=== PATIENT | female | born 1955 | race Caucasian/White ===

== ENCOUNTER → 2016-07-11 | Outpatient (CLI) | payer BC ==
[~2016-07-11] MED LIST: AMLO5TAB2 PO; BACL10TA PO; CALMOSEPTINE OINTMENT 3.5 G PACKET TOP ONE; DEXT1DRO7 BOTH EYES; DULO30CA2 PO; DULO60CA46 PO; IPRA3AMP AEROSOL; LEVE500T9 PO; LEVO50TA11 PO; OXYC10TA57 PO; OXYC20TA44 PO; PANT40TA27 PO; POLY17PO6 PO; PRED10TA PO; RIVA15TA PO; SALINE FLUSH 10ml SYRINGE IVF ONE
== END ==
LOC: NWCC 13:42
PROVIDERS: ATTEND Internal Medicine
DX: L97.512 Non-pressure chronic ulcer of other part of right foot with fat layer exposed (principal); S90.821A Blister (nonthermal), right foot, initial encounter; R60.0 Localized edema; I87.2 Venous insufficiency (chronic) (peripheral)
CPT/HCPCS: 11042; 99213; A6209

== ENCOUNTER → 2016-07-19 | Outpatient (CLI) | payer BC ==
[~2016-07-19] MED LIST changes: -CALMOSEPTINE OINTMENT 3.5 G PACKET TOP ONE; -SALINE FLUSH 10ml SYRINGE IVF ONE
== END ==
LOC: NWCC 13:37
PROVIDERS: ATTEND Internal Medicine
DX: L97.512 Non-pressure chronic ulcer of other part of right foot with fat layer exposed (principal); S90.821A Blister (nonthermal), right foot, initial encounter; I87.2 Venous insufficiency (chronic) (peripheral); R60.0 Localized edema; G62.9 Polyneuropathy, unspecified
CPT/HCPCS: 11042; 99213; A6021; A6210

== ENCOUNTER → 2016-08-02 | Outpatient (CLI) | payer BC ==
[~2016-08-02] MED LIST changes: +SALINE FLUSH 10ml SYRINGE IVF ONE
== END ==
LOC: NWCC 13:35
PROVIDERS: ATTEND Internal Medicine
DX: L97.512 Non-pressure chronic ulcer of other part of right foot with fat layer exposed (principal); S90.821A Blister (nonthermal), right foot, initial encounter; R60.0 Localized edema; I87.2 Venous insufficiency (chronic) (peripheral)
CPT/HCPCS: 11042; 99213; A6021

== ENCOUNTER → 2016-08-16 | Outpatient (CLI) | payer BC ==
[~2016-08-16] MED LIST changes: +AMOX-351 PO; +BETH10TA PO; +BETH25TA PO; +CALMOSEPTINE OINTMENT 3.5 G PACKET TOP ONE; +INDO50CA71 PO; +LEVE500T26 PO; +LOSA50TA52 PO; +PHEN37.586 PO; +QUET300T44 PO; +[UNRECOGNIZED DRUG - CODE] PO
== END ==
LOC: NWCC 13:27
PROVIDERS: ATTEND Internal Medicine
DX: L97.512 Non-pressure chronic ulcer of other part of right foot with fat layer exposed (principal); S90.821A Blister (nonthermal), right foot, initial encounter; I87.2 Venous insufficiency (chronic) (peripheral); R60.0 Localized edema
CPT/HCPCS: 11042; 99213; A6021; A6209; A6210

== ENCOUNTER 2016-08-25 17:29 | Inpatient (IN) | payer BC, MEDICARE ==
[~2016-08-25] VITALS: Ht 167.6 cm; Wt 110.1 kg
[2016-08-25] VITALS (17 sets, daily range): BP systolic 153–205; BP diastolic 61–124; PULSE 93–121; RESP 5–34; TEMP 98.1; O2SAT 90–99; Ht 167.6 cm; Wt 110.1 kg
[~2016-08-25 17:29] MED LIST changes: -AMOX-351 PO; -BETH10TA PO; -BETH25TA PO; -CALMOSEPTINE OINTMENT 3.5 G PACKET TOP ONE; -INDO50CA71 PO; -LEVE500T26 PO; -LOSA50TA52 PO; -PHEN37.586 PO; -QUET300T44 PO; -SALINE FLUSH 10ml SYRINGE IVF ONE; -[UNRECOGNIZED DRUG - CODE] PO
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
--- OUTSIDE RECORDS SUMMARY | 2016-08-25 17:36 | XMS REPORT | Continuity of Care Document ---
Author Author [facility] Organization [facility] Address Unknown Phone Unavailable Support Name Relationship Address Phone CHANDRIKA BARNES MD Caregiver [facility] [address] [place] [address] Unavailable MEGAN CRONIN DO Caregiver [address] [place] [address] [phone] JESSICA GOMEZ Next Of Kin [address] [id number] Insurance Providers Payer Name Policy Number Subscriber Name Relationship [facility] [id number] Jessica Gomez 01 Spouse Problems Medical Problems Problem Onset Date Status Esophageal obstruction due to food impaction Unknown Active Medications Medication Dose Route Sig Days/Qty Instructions Order Date Discontinued Date Status Indomethacin 50 Mg PO TWICE A DAY 04/19/08 10/22/10 Discontinued Ezetimibe/Simvastatin 1 Tab PO BEDTIME 04/20/08 10/22/10 Discontinued Hydrocodone Bit/Acetaminophen 1 Tab PO 1OR2 PRN Q4-6HRS 04/20/0804/22 Discontinued Quetiapine Fumarate 150 Mg PO BEDTIME 04/20/08 Active Estrogen,Con/M-Progest Acet 1 Tab PO DAILY 04/20/08 10/22/10 Discontinued Bupropion Hcl 150 Mg PO 3 DAILY 04/20/08 10/22/10 Discontinued Valsartan 160 Mg PO DAILY 04/20/08 06/25/11 Discontinued [place]-3 Acid Ethyl Esters 1 G PO DAILY 10/22/10 06/25/11 Discontinued Sulfamethoxazole/Trimethoprim 1 Tab PO TWICE A DAY 10/22/10 Discontinued Oxymorphone Hcl 20 Mg PO TWICE A DAY 10/22/10 06/25/11 Discontinued Cyclobenzaprine Hcl 10 Mg PO NEEDED 10/22/10 06/25/11 Discontinued Levetiracetam 500 Mg PO THREE TIMES A DAY 06/25/11 01/16/12 Discontinued Ezetimibe/Simvastatin 1 Tab PO BEDTIME 06/25/11 Active Diclofenac Potassium 50 Mg PO NEEDED 06/25/11 01/16/12 Discontinued Tizanidine Hcl 4 Mg PO NEEDED 06/25/11 Active Hydrocodone Bit/Acetaminophen 1 Udtab PO NEEDED 06/25/11 Discontinued Aspirin 1 Tab PO BEDTIME 06/30/14 Active Pregabalin PO TWICE A DAY 06/30/14 Active Oxycodone HCl/Acetaminophen 10 Mg PO Every 6 Hours PRN PAIN Take 1 tab, by mouth, every 6 hours as needed for pain. 06/30/14 Active Social History Social History Problem Response Recorded Date/Time Chewing Tobacco Status No 01/18/2012 7:00am Hx Substance Use No 06/30/2014 7:31pm Hx Alcohol Use No 06/30/2014 7:31pm Has the pt used tobacco in the last 12 months No 01/18/2012 7:00am Query Response Start Date Stop Date Smoking Status Unknown if ever smoked Hospital Discharge Instructions No hospital discharge instructions. Plan of Care No plan of care. Functional Status Query Response Date Recorded Physical Hygiene Self June 30, 2014 7:31pm Disabilities Visual June 30, 2014 7:31pm Devices Used Glasses June 30, 2014 7:31pm Dressing Self June 30, 2014 7:31pm Ambulation Self June 30, 2014 7:31pm Diet Self June 30, 2014 7:31pm Mental Status Alert June 30, 2014 8:07pm Disabilities Visual June 30, 2014 7:31pm Devices Used Glasses June 30, 2014 7:31pm Physical Hygiene Self June 30, 2014 7:31pm Dressing Self June 30, 2014 7:31pm Ambulation Self June 30, 2014 7:31pm Diet Self June 30, 2014 7:31pm Allergies, Adverse Reactions, Alerts Allergen Type Severity Reaction Status Last Updated Gatifloxacin Allergy Intermediate RASH Active 06/30/14 Immunizations Name Given Type Hx Influenza Vaccination Y 01/2012 Historical Hx Pneumococcal Vaccination No Historical Hx Influenza Vaccination Y 01/2012 Historical Vital Signs Acute Vital Signs Vital Response Date/Time Temperature (Fahrenheit) 97.1 deg F (96.8 - 99.1) Temperature (Calculated Celsius) 36.13050 degrees C (36.0 - 37.3) Pulse Rate (adult) 84 bpm (60 - 100) Respiratory Rate 16 breaths/min (10 - 20) O2 Sat by Pulse Oximetry 98 % (90 - 100) Blood Pressure 110/74 mm Hg Height 5 ft 7 in Weight 186 lb Body Mass Index 29.0 kg/m^2 Results Test Source Date Result Interp. Ref. Range Comments Acetaminophen Level October 22, 2010 3:12pm < 10 UG/ML L 10-30 TOXIC <4 HR POST INGESTION: >150 MG/L;TOXIC <12 HR POST INGESTION: >50 MG/L Adrenocorticotropic Hormone October 22, 2010 10:13pm Ref lab rpt scanned - --- 10/25/10 1552 ---ACTH previously reported as: SENT OUT Alanine Aminotransferase (ALT/SGPT) June 30, 2014 7:08pm 29 U/L N 9- 52 Albumin June 30, 2014 7:08pm 4.3 G/DL N 3.5-5.0 Albumin/Globulin Ratio June 30, 2014 7:08pm 1.5 RATIO N 1.1-2.2 Alcohol, Quantitative March 25, 2012 5:35pm <10 MG/DL - Aldosterone October 22, 2010 10:13pm Ref lab rpt scanned - --- 1406 ---ALDOSB previously reported as: SENT OUT Alkaline Phosphatase June 30, 2014 7:08pm 159 U/L H 38-126 Ammonia October 22, 2010 10:13pm < 9 UMOL/L L 9-33 Anion Gap June 30, 2014 7:08pm 10 MEQ/L N 5-15 Aspartate Amino Transf (AST/SGOT) June 30, 2014 7:08pm 37 U/L H 14- 36 Atypical/Reactive Lymphocytes October 17, 2007 12:57pm 1.2 T/MM3 H 0-0 CALL RESULTS 289 2800 BUN/Creatinine Ratio June 30, 2014 7:08pm 13 RATIO N 6-26 Bacterial Antigen Specimen Source October 25, 2010 7:45pm Csf - Band Neutrophils # October 29, 2010 5:15am 0.5 T/MM3 - Band Neutrophils % October 29, 2010 5:15am 3.0 % N 0-6 Basophils # (Auto) March 25, 2012 5:35pm 0.0 T/MM3 N 0-0.2 Basophils (%) (Auto) March 25, 2012 5:35pm 0.4 % N 0-2 Blood Urea Nitrogen June 30, 2014 7:08pm 9.0 MG/DL N 7-17 CSF Angiotensin Converting Enzyme October 25, 2010 7:45pm Ref lab rpt scanned - --- 11/01/10 1553 ---MAYELA, CSF previously reported as: SENT OUT CSF Color October 25, 2010 7:45pm Colorless - CSF Eosinophils % October 25, 2010 7:45pm 5 % - CSF Glucose October 25, 2010 7:45pm 70 MG/DL N 40-70 CSF Immunofixation October 25, 2010 7:45pm Ref lab rpt scanned - --- 1553 ---IMMCSF previously reported as: SEND OUT CSF Lymphocytes October 25, 2010 7:45pm 20 % - CSF Monocytes October 25, 2010 7:45pm 15 % - CSF Neutrophils October 25, 2010 7:45pm 60 % - CSF RBC October 25, 2010 7:45pm 585 /MM3 H 0-0 CSF Total Protein October 25, 2010 7:45pm 47 MG/DL N 12-60 CSF Turbidity October 25, 2010 7:45pm Clear - CSF WBC October 25, 2010 7:45pm 2 /MM3 N 0-5 Calcium Level June 30, 2014 7:08pm 9.9 MG/DL N 8.4-10.2 Calculated Osmolality June 30, 2014 7:08pm 264 MOSM/KG N 261-280 Carbon Dioxide Level June 30, 2014 7:08pm 31 MEQ/L H 22-30 Chemistry Specimen Hemolysis June 30, 2014 7:08pm < 15 0-25 0-25 : No Hemolysis.26-70: Slight Hemolysis - can falsely elevate K and Urine Protein. 71-285: Moderate Hemolysis - can falsely elevate K, Troponin I, CA 19-9, PTH, CSF GLucose, and Urine Protein, and can falsely decrease Phenytoin. 286-999: Gross Hemolysis - can falsely elevate K, Troponin I, CA 19-9, PTH, CSF Glucose, and Urine Protine, and can falsely decrease Phenytoin. Recommend specimen recollection. Chloride Level June 30, 2014 7:08pm 97 MEQ/L L 98-107 Conjugated Bilirubin October 22, 2010 3:12pm 0.00 MG/DL N 0.00-0.30 Creatinine June 30, 2014 7:08pm 0.7 MG/DL N 0.7-1.2 Differential Total Cells Counted October 29, 2010 5:15am 100 % - Eosinophils # (Auto) March 25, 2012 5:35pm 0.1 T/MM3 N 0-0.5 Eosinophils # (Manual) October 17, 2007 12:57pm 0.1 T/MM3 N 0-0.5 CALL RESULTS 289 2800 Eosinophils % (Manual) October 17, 2007 12:57pm 1.0 % N 0-4 CALL RESULTS 289 2800 Eosinophils (%) (Auto) March 25, 2012 5:35pm 0.7 % N 0-4 Erythrocyte Sedimentation Rate October 17, 2007 12:57pm 49 MM/HR - CALL RESULTS 289 2800 Globulin June 30, 2014 7:08pm 2.8 G/DL N 2.4-3.6 Glomerular Filtration Rate Calc June 30, 2014 7:08pm 86 - Glucose Level June 30, 2014 7:08pm 83 MG/DL N 65-110 Group A Streptococcus Screen October 17, 2007 1:28pm Negative - Group B Streptococcus Antigen October 25, 2010 7:45pm Negative - Hematocrit March 25, 2012 5:35pm 44.1 % N 36-46 Hemoglobin June 30, 2014 7:08pm 13.0 GM/DL N 12-16 Herpes Simplex Virus DNA (PCR) October 25, 2010 7:45pm Ref lab rpt scanned - --- 10/27/10 1559 ---HSVPCR previously reported as: SENT OUT Icterus Index June 30, 2014 7:08pm < 2 0-7 Immature Granulocyte # (Auto) March 25, 2012 5:35pm 0.02 T/MM3 N 0.00 -0.03 Immature Granulocyte % (Auto) March 25, 2012 5:35pm 0.2 % N 0.0-0.5 Immunoglobulin G October 25, 2010 7:45pm 611 MG/DL L 700-1600 Immunoglobulin G Synthesis Rate October 25, 2010 7:45pm Ref lab rpt scanned - --- 11/01/10 1553 ---IGGSYN previously reported as: SEND OUT Influenza Type B Antigen October 25, 2010 7:45pm Negative - Influenza Virus Types A,B Antigen October 17, 2007 12:57pm Negative - CALL RESULTS 289 2800 Lab Scanned Report May 07, 2011 11:55am [facility] [id number] - Lymphocytes # (Auto) March 25, 2012 5:35pm 2.6 T/MM3 N 1-4.8 Lymphocytes # (Manual) October 29, 2010 5:15am 2.0 T/MM3 N 1-4.8 Lymphocytes % (Manual) October 29, 2010 5:15am 12.0 % L 23-45 Lymphocytes (%) (Auto) March 25, 2012 5:35pm 29.6 % N 23-45 Magnesium Level October 27, 2010 4:50am 2.0 MG/DL N 1.6-2.3 Mean Corpuscular Hemoglobin March 25, 2012 5:35pm 31.5 UUG N 26-34 Mean Corpuscular Hemoglobin Concent March 25, 2012 5:35pm 33.8 GM/DL N 31-37 Mean Corpuscular Volume March 25, 2012 5:35pm 93.2 UM3 N 80-100 Mean Platelet Volume March 25, 2012 5:35pm 9.5 UM3 N 9.4-12.4 Metamyelocytes # October 17, 2007 12:57pm 0.5 T/MM3 - CALL RESULTS 289 2800 Metamyelocytes % October 17, 2007 12:57pm 4.0 % H 0-0 CALL RESULTS 289 2800 Monocytes # (Auto) March 25, 2012 5:35pm 0.8 T/MM3 N 0-0.8 Monocytes # (Manual) October 29, 2010 5:15am 1.3 T/MM3 H 0-0.8 Monocytes % (Manual) October 29, 2010 5:15am 8.0 % N 0-9.0 Monocytes (%) (Auto) March 25, 2012 5:35pm 8.9 % N 0-9.0 N. meningitidis B/E. coli K1 October 25, 2010 7:45pm Negative - N. meningitidis C/W 135 October 25, 2010 7:45pm Negative - Neisseria meningitidis A/Y Antigen October 25, 2010 7:45pm Negative - Neutrophils # (Auto) March 25, 2012 5:35pm 5.4 T/MM3 N 1.8-7.7 Neutrophils # (Manual) October 29, 2010 5:15am 12.6 T/MM3 H 1.8-7.7 Neutrophils % (Manual) October 29, 2010 5:15am 77.0 % H 33-66 Neutrophils (%) (Auto) March 25, 2012 5:35pm 60.2 % N 33-66 Non-Respiratory Viral Culture October 25, 2010 7:45pm Ref lab rpt scanned - --- 11/10/10 1533 ---KIRSTEN previously reported as: SEND OUT Parathyroid Hormone (Intact) October 22, 2010 10:13pm 39.0 PG/ML N 8.2- 83.5 Platelet Count March 25, 2012 5:35pm 230 T/MM3 N 130-400 Potassium Level June 30, 2014 7:08pm 3.7 MEQ/L N 3.6-5 RDW Standard Deviation March 25, 2012 5:35pm 39.2 FL N 36.9-50.2 Reactive Lymphocytes October 17, 2007 12:57pm 10.0 % H 0-0 CALL RESULTS 289 2800 Reactive Lymphocytes # October 22, 2010 3:12pm 0.2 T/MM3 H 0-0 Reactive Lymphocytes % October 22, 2010 3:12pm 1.0 % DH 0-0 Red Blood Count March 25, 2012 5:35pm 4.73 M/MM3 N 4.00-5.20 Salicylates Level October 22, 2010 3:12pm < 1.0 MG/DL L 2-20 Serum Osmolality October 22, 2010 10:13pm Ref lab rpt scanned - --- 26/03 1100 ---MARCIA previously reported as: SEND OUT Sodium Level June 30, 2014 7:08pm 138 MEQ/L N 134-144 Streptococcus pneumoniae Antigen October 25, 2010 7:45pm Negative - Tests Not Done May 25, 2009 10:20am Not done - 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[employer] Thyroid Stimulating Hormone (TSH) October 22, 2010 10:13pm 1.03 MIU/L N 0.47-4.68 COMMENT use blood in lab Total Bilirubin June 30, 2014 7:08pm 0.50 MG/DL N 0.20-1.30 Total Protein June 30, 2014 7:08pm 7.1 G/DL N 6.3-8.2 Troponin I October 22, 2010 3:12pm 0.065 ng/ml DN 0-0.12 Turbidity June 30, 2014 7:08pm < 20 0-20 Unconjugated Bilirubin October 22, 2010 3:12pm 0.50 MG/DL N 0.00-1.10 Urine Acetaminophen Screen October 22, 2010 4:30pm Negative NG/ML - Urine Amphetamines Screen October 22, 2010 4:30pm Negative NG/ML - Urine Bacteria October 22, 2010 4:30pm Trace H - Has specimen been collected/obtained? Y Urine Barbiturates Screen October 22, 2010 4:30pm Negative NG/ML - Urine Benzodiazepines Screen October 22, 2010 4:30pm Negative NG/ML - Urine Bilirubin October 22, 2010 4:30pm Negative - Has specimen been collected/obtained? Y Urine Blood October 22, 2010 4:30pm 2+ H - Has specimen been collected/ obtained? Y Urine Cannabinoids Screen October 22, 2010 4:30pm Negative NG/ML - Urine Cocaine Screen October 22, 2010 4:30pm Negative NG/ML - Urine Collection Type October 22, 2010 4:30pm Straight cath - Has specimen been collected/obtained? Y Urine Color October 22, 2010 4:30pm Yellow - Has specimen been collected /obtained? Y Urine Culture Indicated October 22, 2010 4:30pm Cult not indicated - Has specimen been collected/obtained? Y Urine Glucose (UA) October 22, 2010 4:30pm Negative - Has specimen been collected/obtained? Y Urine Ketones October 22, 2010 4:30pm Negative - Has specimen been collected/obtained? Y Urine Leukocyte Esterase October 22, 2010 4:30pm Negative - Has specimen been collected/obtained? Y Urine Methadone Screen October 22, 2010 4:30pm Negative NG/ML - Urine Methamphetamines Screen October 22, 2010 4:30pm Negative NG/ML - Urine Nitrite October 22, 2010 4:30pm Negative - Has specimen been collected/obtained? Y Urine Opiates Screen October 22, 2010 4:30pm Negative NG/ML - Urine Osmolality October 22, 2010 4:30pm Ref lab rpt scanned - --- 26/03 1100 ---UOSM previously reported as: SEND OUT Urine Phencyclidine Screen October 22, 2010 4:30pm Negative NG/ML - Urine Protein October 22, 2010 4:30pm Trace H - Has specimen been collected/obtained? Y Urine RBC October 22, 2010 4:30pm 5-10 /HPF H - Has specimen been collected/obtained? Y Urine Random Sodium October 22, 2010 4:30pm 84 MEQ/L N 30-90 Has specimen been collected/obtained? YCOMMENT use urine in lab Urine Specific [place] October 22, 2010 4:30pm 1.010 L - Has specimen been collected/obtained? Y Urine Squamous Epithelial Cells October 22, 2010 6:00am Few - Has specimen been collected/obtained? Y Urine Tricyclic Antidepressants October 22, 2010 4:30pm Positive NG/ML - Urine Turbidity October 22, 2010 4:30pm Clear - Has specimen been collected/obtained? Y Urine Urobilinogen October 22, 2010 4:30pm Normal EU/DL - Has specimen been collected/obtained? Y Urine WBC October 22, 2010 6:00am 5-10 /HPF H - Has specimen been collected/obtained? Y Urine pH October 22, 2010 4:30pm 7.0 - Has specimen been collected/ obtained? Y White Blood Count March 25, 2012 5:35pm 8.9 T/MM3 N 4.5-11.0 Gram Stain Cerebral Spinal Fluid October 25, 2010 7:45pm Gram Stain Knee, Intraoperative Site-Right April 20, 2008 12:14pm Procedures No known history of procedures. Encounters Encounter Location Date/Time Departed Emergency Room [facility] 06/30/14 5:59pm Recent Diagnosis
--- OUTSIDE RECORDS SUMMARY | 2016-08-25 17:36 | XMS REPORT | Continuity of Care Document ---
Author Author [facility] Organization [facility] Address Unknown Phone Unavailable Allergies Active Description Code Type Severity Reaction Onset Reported/Identified Relationship to Patient Clinical Status Yes Tequin Drug Allergy uNspecfied 10/18/2009 Yes No Allergy Information Drug Allergy 03/25/2012 Yes No Known Food Allergies Food Allergy 03/27/2012 Yes Gatifloxacin gatifloxacin Drug Allergy Unknown HIVES 11/27/2015 Medications Problems Date Dx Coded Attending Type Code Diagnosis Diagnosed By 03/25/2012 Matt Finch MD Final 272.4 HYPERLIPIDEMIA NEC NOS 03/25/2012 Matt Finch MD Final 401.9 HYPERTENSION NOS 03/25/2012 Matt Finch MD Final 410.71 SUBEND INFARCT-INITIAL 03/25/2012 Matt Finch MD Final 518.51 AC RESP FAIL TRAUM/SURG 03/25/2012 Matt Finch MD Final 724.5 BACKACHE NOS 03/25/2012 Matt Finch MD External E812.0 MV COLLISION NEC-SADDLE STITCHER 03/25/2012 Matt Finch MD External E849.[address]/HIGHWAY 03/19/2014 Ankur Huitron MD 272.0 PURE HYPERCHOLESTEROLEM 03/19/2014 Ankur Huitron MD F 272.4 HYPERLIPIDEMIA NEC/NOS 03/19/2014 Ankur Huitron MD F 275.2 DIS MAGNESIUM METABOLISM 03/19/2014 Ankur Huitron MD F 285.1 AC POSTHEMORRHAG ANEMIA 03/19/2014 Ankur Huitron MD F 287.5 THROMBOCYTOPENIA NOS 03/19/2014 Ankur Huitron MD F 288.60 LEUKOCYTOSIS, UNSPECIFIED 03/19/2014 Ankru Huitron MD F 300.00 ANXIETY STATE NOS 03/19/2014 Ankur Huitron MD F 311 DEPRESSIVE DISORDER NEC 03/19/2014 Ankur Huitron MD 401.1 BENIGN HYPERTENSION 03/19/2014 Ankur Huitron MD F 493.90 ASTHMA, UNSPECIFIED 03/19/2014 Ankur Huitron MD 724.02 SPINAL STENOSIS, LUMBAR REG, W/OUT NEUROGENIC GARY 03/19/2014 Ankur Huitron MD 724.4 LUMBOSACRAL NEURITIS NOS 03/19/2014 Ankur Huitron MD 737.19 KYPHOSIS NEC 03/19/2014 Ankur Huitron MD 785.0 TACHYCARDIA NOS 03/19/2014 Ankur Huitron MD 996.78 OTH COMP DUE TO OTH INTRNL ORTHPEDIC DEV, IMP,GRFT 03/19/2014 Ankru Huitron MD E878.8 ABN REACT-SURG PROC NEC 03/19/2014 Ankur Huitron MD V15.82 HISTORY OF TOBACCO USE 03/19/2014 Ankur Huitron MD V45.4 ARTHRODESIS STATUS 03/19/2014 Ankur Huitron MD V58.66 LONG-TERM (CURRENT) USE OF ASPIRIN 03/17/2015 Ankur Huitron MD E21.3 HYPERPARATHYROIDISM, UNSPECIFIED 03/17/2015 Ankur Huitron MD F E78.5 HYPERLIPIDEMIA, UNSPECIFIED 03/17/2015 Ankur Huitron MD F F17.200 NICOTINE DEPENDENCE, UNSPECIFIED, UNCOMPLICATED 03/17/2015 Ankur Huitron MD F32.8 OTHER DEPRESSIVE EPISODES 03/17/2015 Ankur Huitron MD F I10 ESSENTIAL (PRIMARY) HYPERTENSION 03/17/2015 Ankur Huitron MD M48.04 SPINAL STENOSIS, THORACIC REGION 03/17/2015 Ankur Huitron MD M54.14 RADICULOPATHY, THORACIC REGION 03/17/2015 Ankur Huitron MD F R19.7 DIARRHEA, UNSPECIFIED 03/17/2015 Ankur Huitron MD F R33.9 RETENTION OF URINE, UNSPECIFIED 10/25/2015 Ankur Huitron MD F E03.9 HYPOTHYROIDISM, UNSPECIFIED 10/25/2015 Ankur Huitron MD F E21.3 HYPERPARATHYROIDISM, UNSPECIFIED 10/25/2015 Ankur Huitron MD F E78.5 HYPERLIPIDEMIA, UNSPECIFIED 10/25/2015 Ankur Huitron MD F E87.6 HYPOKALEMIA 10/25/2015 Ankur Huitron MD F F19.10 OTHER PSYCHOACTIVE SUBSTANCE ABUSE, UNCOMPLICATED 10/25/2015 Elana SANTA, Ankur F F32.9 MAJOR DEPRESSIVE DISORDER, SINGLE EPISODE, UNSPECI 10/25/2015 Ankur Huitron MD F60.3 BORDERLINE PERSONALITY DISORDER 10/25/2015 Ankur Huitron MD G82.20 PARAPLEGIA, UNSPECIFIED 10/25/2015 Ankur Huitron MD F I10 ESSENTIAL (PRIMARY) HYPERTENSION 10/25/2015 Ankur Huitron MD J45.909 UNSPECIFIED ASTHMA, UNCOMPLICATED 10/25/2015 Ankur Huitron MD M48.04 SPINAL STENOSIS, THORACIC REGION 10/25/2015 Ankur Huitron MD M72.2 PLANTAR FASCIAL FIBROMATOSIS 10/25/2015 Ankur Huitron MD R20.0 ANESTHESIA OF SKIN 10/25/2015 Ankur Huitron MD R33.9 RETENTION OF URINE, UNSPECIFIED 10/25/2015 Ankur Huitron MD T40.2X1A POISONING BY OTH OPIOIDS, ACCIDENTAL ( UNINTENTIONA 11/27/2015 Blayne Jackson MD(NAME ALRT F E03.9 HYPOTHYROIDISM, UNSPECIFIED 11/27/2015 Blayne Jackson MD(NAME ALRT F E78.5 HYPERLIPIDEMIA, UNSPECIFIED 11/27/2015 Blayne Jackson MD(NAME ALRT F F17.210 NICOTINE DEPENDENCE, CIGARETTES, UNCOMPLICATED 11/27/2015 Blayne Jackson MD(NAME ALRT F F32.9 MAJOR DEPRESSIVE DISORDER, SINGLE EPISODE, UNSPECI 11/27/2015 Blayne Jackson MD(NAME ALRT F F34.1 DYSTHYMIC DISORDER 11/27/2015 Blayne Jackson MD(NAME ALRT F G82.20 PARAPLEGIA, UNSPECIFIED 11/27/2015 Blayne Jackson MD(NAME ALRT F I10 ESSENTIAL (PRIMARY) HYPERTENSION 11/27/2015 Blayne Jackson MD(NAME ALRT F J45.909 UNSPECIFIED ASTHMA, UNCOMPLICATED 11/27/2015 Blayne Jackson MD(NAME ALRT F R33.9 RETENTION OF URINE, UNSPECIFIED 11/27/2015 Blayne Jackson MD(NAME ALRT F T42.6X1A POISONING BY OTH ANTIEPLPTC AND SED-HYPNTC DRUGS, 11/27/2015 Blayne Jackson MD(NAME VIDA Rodriguez Z88.1 ALLERGY STATUS TO OTHER ANTIBIOTIC AGENTS STATUS Procedures Code Description Performed By Performed On 00.94 INTRA-OPERATIVE NEUROPHYSIOLOGIC MONITORING 03/19/2014 41.98 BONE MARROW OPS NEC 03/19/2014 77.79 EXCISE BONE FOR GFT NEC 03/19/2014 80.51 EXCISION INTERVERT DISC 03/19/2014 81.06 LUMBAR LUMBOSACRAL FUSION OF ANTERIOR COLUMN/LUZMA 03/19/2014 81.35 REFUSION OF DORSAL DORSOLUMBAR SPINE, P COLUMN/T Elana SANTA, [place] 03/19/2014 81.64 FUSION/REFUS OF 9 OR MORE VERTEBRAE 03/19/2014 84.51 INSERTION OF INTERBODY SPINAL FUSION DEVICE 03/19/2014 84.52 INSERTION OF RECOMBINANT BONE MORPHOGENETIC PROTEI 03/19/2014 [id number] FUSION 2-7 T JT W INTBD FUS DEV, POST APPR A COLElana MD, [place] 03/17/2015 [id number] FUSION 2-7 T JT Babs NONAUT SUB, POST APPR P COL, OPE Elana SANTA, [place] 03/17/2015 [id number] PLAIN RADIOGRAPHY OF SPINAL CORD USING OTHER CONTR Jeramie SANTA, Luis Armando 10/25/2015 Results Test Result Range MRSA SURVEILLANCE SCREEN - 02/26/14 11:36 Microbiology CBC - 03/20/14 05:41 MEAN CELL HGB 32.2 pg 27.0-33.0 MEAN CELL HGB CONCENTRATION 33.0 g/dL 32.0-37.0 MEAN CELL VOLUME 97.5 fl 80.0-100.0 RED BLOOD CELL 3.67 m/cumm 4.00-6.00 RED CELL DISTRIBUTION WIDTH 12.8 % 11.0- 15.6 WHITE BLOOD CELL 13.8 k/cumm 5.0-10.0 HEMOGLOBIN 11.8 gm/dL 12.0-16.0 HEMATOCRIT 35.8 % 37.0-47.0 PLATELET COUNT 180 k/cumm 150-400 METABOLIC PANEL, BASIC - 03/20/14 05:41 POTASSIUM 4.1 mmol/L 3.5-5.3 EST GFR (MDRD) > 60 mL/min > 59 ANION GAP 4 mmol/L 5-15 EST CrCl (CG) > 60 mL/min > 59 GLUCOSE 139 mg/dL 70-99 CALCIUM 8.7 mg/dL 8.5-10.1 BLOOD UREA NITROGEN 8 mg/dL 7-20 CREATININE 0.6 mg/dL 0.6-1.0 SODIUM 142 mmol/L 135-148 CHLORIDE 109 mmol/L 98-110 CARBON DIOXIDE 29 mmol/L 21-32 CBC - 03/21/14 03:21 MEAN CELL HGB 32.7 pg 27.0-33.0 MEAN CELL HGB CONCENTRATION 33.4 g/dL 32.0-37.0 MEAN CELL VOLUME 97.6 fl 80.0-100.0 RED BLOOD CELL 2.94 m/cumm 4.00-6.00 RED CELL DISTRIBUTION WIDTH 12.8 % 11.0- 15.6 WHITE BLOOD CELL 10.1 k/cumm 5.0-10.0 HEMOGLOBIN 9.6 gm/dL 12.0-16.0 HEMATOCRIT 28.7 % 37.0-47.0 PLATELET COUNT 136 k/cumm 150-400 METABOLIC PANEL, COMPREHN - 03/21/14 03:21 POTASSIUM 3.8 mmol/L 3.5-5.3 EST GFR (MDRD) > 60 mL/min > 59 ANION GAP 3 mmol/L 5-15 EST CrCl (CG) > 60 mL/min > 59 GLUCOSE 130 mg/dL 70-99 CALCIUM 7.9 mg/dL 8.5-10.1 BLOOD UREA NITROGEN 8 mg/dL 7-20 CREATININE 0.6 mg/dL 0.6-1.0 SODIUM 143 mmol/L 135-148 CHLORIDE 109 mmol/L 98-110 AST/SGOT 30 Units/L 10-37 ALT/SGPT 32 Units/L < 66 CARBON DIOXIDE 31 mmol/L -32 TOTAL PROTEIN 4.8 gm/dL 6.4-8.2 ALBUMIN 2.1 gm/dL 3.4-5.0 BILI TOTAL 0.3 mg/dL 0.0-1.0 ALKALINE PHOSPHATASE TOTAL 73 IU/L 45- 117 MAGNESIUM - 03/21/14 03:21 MAGNESIUM 1.5 mg/dL 1.8-2.4 CBC - 03/22/14 05:13 MEAN CELL HGB 32.3 pg 27.0-33.0 MEAN CELL HGB CONCENTRATION 32.5 g/dL 32.0-37.0 MEAN CELL VOLUME 99.4 fl 80.0-100.0 RED BLOOD CELL 3.31 m/cumm 4.00-6.00 RED CELL DISTRIBUTION WIDTH 12.9 % 11.0- 15.6 WHITE BLOOD CELL 11.0 k/cumm 5.0-10.0 HEMOGLOBIN 10.7 gm/dL 12.0-16.0 HEMATOCRIT 32.9 % 37.0-47.0 PLATELET COUNT 221 k/cumm 150-400 MAGNESIUM - 03/22/14 05:13 MAGNESIUM 1.9 mg/dL 1.8-2.4 PROTHROMBIN TIME WITH INR - 03/17/15 16:11 INTERNATIONAL NORMAL RATIO 0.9 0.9-1.1 PROTHROMBIN TIME 10.3 sec 9.3-12.2 PARTIAL THROMBOPLASTIN TIME - 03/17/15 16:11 PARTIAL THROMBOPLASTIN TIME 32 sec 23-39 URINALYSIS, ROUTINE - 03/17/15 16:50 UA LEUKOCYTE ESTERASE DIPSTICK NEGATIVE NEGATIVE UA NITRITE DIPSTICK NEGATIVE NEGATIVE UA PROTEIN DIPSTICK NEGATIVE NEGATIVE UA GLUCOSE DIPSTICK NEGATIVE NEGATIVE UA KETONE DIPSTICK NEGATIVE NEGATIVE UA UROBILINOGEN DIPSTICK NORMAL NORMAL UA BILIRUBIN DIPSTICK NEGATIVE NEGATIVE UA BLOOD DIPSTICK 1+ NEGATIVE UA SPECIFIC GRAVITY 1.007 1.015-1.025 UR PH 8.0 5.0-7.0 UA MICROSCOPIC - 03/17/15 16:50 UA BACTERIA 1+ NEGATIVE UA RBC 0-3 rbc/hpf 0 - 3 UA VOLUME FOR EXAM 12.0 mL (12mL STD) UA WBC 2-5 wbc/hpf 0 - 5 MRSA SURVEILLANCE SCREEN - 03/17/15 16:50 Microbiology CBC - 03/17/15 20:49 MEAN CELL HGB 32.3 pg 27.0-33.0 MEAN CELL HGB CONCENTRATION 34.1 g/dL 32.0-37.0 MEAN CELL VOLUME 94.6 fl 80.0-100.0 RED BLOOD CELL 4.62 m/cumm 4.00-6.00 RED CELL DISTRIBUTION WIDTH 11.6 % 11.0- 15.6 WHITE BLOOD CELL 6.9 k/cumm 5.0-10.0 HEMOGLOBIN 14.9 gm/dL 12.0-16.0 HEMATOCRIT 43.7 % 37.0-47.0 PLATELET COUNT 190 k/cumm 150-400 CBC - 03/18/15 03:54 MEAN CELL HGB 32.5 pg 27.0-33.0 MEAN CELL HGB CONCENTRATION 34.3 g/dL 32.0-37.0 MEAN CELL VOLUME 94.8 fl 80.0-100.0 RED BLOOD CELL 4.24 m/cumm 4.00-6.00 RED CELL DISTRIBUTION WIDTH 11.5 % 11.0- 15.6 WHITE BLOOD CELL 12.9 k/cumm 5.0-10.0 HEMOGLOBIN 13.8 gm/dL 12.0-16.0 HEMATOCRIT 40.2 % 37.0-47.0 PLATELET COUNT 180 k/cumm 150-400 METABOLIC PANEL, BASIC - 03/18/15 03:54 POTASSIUM 4.1 mmol/L 3.5-5.3 EST GFR (MDRD) > 60 mL/min > 59 ANION GAP 8 mmol/L 5-15 EST CrCl (CG) > 60 mL/min > 59 GLUCOSE 114 mg/dL 70-99 CALCIUM 8.4 mg/dL 8.5-10.1 BLOOD UREA NITROGEN 15 mg/dL 7-20 CREATININE 0.7 mg/dL 0.6-1.0 SODIUM 140 mmol/L 135-148 CHLORIDE 106 mmol/L 98-110 CARBON DIOXIDE 26 mmol/L 21-32 MRSA SURVEILLANCE SCREEN - 10/25/15 19:07 Microbiology CBC W/DIFF - 10/25/15 20:03 COMMENT REVIEWED GRANULOCYTE # 10.7 k/cumm 2.0-9.0 GRANULOCYTE % 94 % 50-75 LYMPHOCYTE # 0.6 k/cumm 1.0-4.0 LYMPHOCYTE % 5 % 20-30 MEAN CELL HGB 32.6 pg 27.0-33.0 MEAN CELL HGB CONCENTRATION 34.4 g/dL 32.0-37.0 MEAN CELL VOLUME 94.8 fl 80.0-100.0 MONOCYTE # 0.1 k/cumm 0.1-1.0 MONOCYTE % 1 % 4-6 RED BLOOD CELL 4.63 m/cumm 4.00-6.00 RED CELL DISTRIBUTION WIDTH 11.9 % 11.0- 15.6 TOXIC GRANULATION NOTED WHITE BLOOD CELL 11.4 k/cumm 5.0-10.0 HEMOGLOBIN 15.1 gm/dL 12.0-16.0 HEMATOCRIT 43.9 % 37.0-47.0 PLATELET COUNT 233 k/cumm 150-400 METABOLIC PANEL, COMPREHN - 10/25/15 20:03 POTASSIUM 3.1 mmol/L 3.5-5.3 EST GFR (MDRD) > 60 mL/min > 59 ANION GAP 8 mmol/L 5-15 EST CrCl (CG) > 60 mL/min > 59 GLUCOSE 155 mg/dL 70-99 CALCIUM 8.7 mg/dL 8.5-10.1 BLOOD UREA NITROGEN 9 mg/dL 7-20 CREATININE 0.7 mg/dL 0.6-1.0 SODIUM 141 mmol/L 135-148 CHLORIDE 103 mmol/L 98-110 AST/SGOT 13 Units/L 10-37 ALT/SGPT 23 Units/L < 66 CARBON DIOXIDE 30 mmol/L 21-32 TOTAL PROTEIN 6.7 gm/dL 6.4-8.2 ALBUMIN 3.4 gm/dL 3.4-5.0 BILI TOTAL 0.5 mg/dL 0.0-1.0 ALKALINE PHOSPHATASE TOTAL 164 IU/L 45- 117 METABOLIC PANEL, BASIC - 10/26/15 05:27 POTASSIUM 3.3 mmol/L 3.5-5.3 EST GFR (MDRD) > 60 mL/min > 59 ANION GAP 7 mmol/L 5-15 EST CrCl (CG) > 60 mL/min > 59 GLUCOSE 132 mg/dL 70-99 CALCIUM 8.6 mg/dL 8.5-10.1 BLOOD UREA NITROGEN 12 mg/dL 7-20 CREATININE 0.6 mg/dL 0.6-1.0 SODIUM 143 mmol/L 135-148 CHLORIDE 107 mmol/L 98-110 CARBON DIOXIDE 29 mmol/L 21-32 MAGNESIUM - 10/26/15 05:27 MAGNESIUM 1.8 mg/dL 1.8-2.4 METABOLIC PANEL, [facility] - 10/27/15 09:26 POTASSIUM 3.1 mmol/L 3.5-5.3 EST GFR (MDRD) > 60 mL/min > 59 ANION GAP 7 mmol/L 5-15 EST CrCl (CG) > 60 mL/min > 59 GLUCOSE 62 mg/dL 70-99 CALCIUM 9.0 mg/dL 8.5-10.1 BLOOD UREA NITROGEN 8 mg/dL 7-20 CREATININE 0.8 mg/dL 0.6-1.0 SODIUM 143 mmol/L 135-148 CHLORIDE 107 mmol/L 98-110 CARBON DIOXIDE 29 mmol/L - METABOLIC PANEL, BASIC - 10/28/15 07:04 POTASSIUM 3.0 mmol/L 3.5-5.3 EST GFR (MDRD) > 60 mL/min > 59 ANION GAP 7 mmol/L 5-15 EST CrCl (CG) > 60 mL/min > 59 GLUCOSE 75 mg/dL 70-99 CALCIUM 8.6 mg/dL 8.5-10.1 BLOOD UREA NITROGEN 7 mg/dL 7-20 CREATININE 0.7 mg/dL 0.6-1.0 SODIUM 141 mmol/L 135-148 CHLORIDE 105 mmol/L 98-110 CARBON DIOXIDE 29 mmol/L 21-32 METABOLIC PANEL, BASIC - 10/29/15 05:18 POTASSIUM 3.7 mmol/L 3.5-5.3 EST GFR (MDRD) > 60 mL/min > 59 ANION GAP 6 mmol/L 5-15 EST CrCl (CG) > 60 mL/min > 59 GLUCOSE 85 mg/dL 70-99 CALCIUM 8.8 mg/dL 8.5-10.1 BLOOD UREA NITROGEN 9 mg/dL 7-20 CREATININE 0.7 mg/dL 0.6-1.0 SODIUM 140 mmol/L 135-148 CHLORIDE 105 mmol/L 98-110 CARBON DIOXIDE 29 mmol/L 21-32 URINALYSIS, ROUTINE - 10/30/15 08:15 UA LEUKOCYTE ESTERASE DIPSTICK 2+ NEGATIVE UA NITRITE DIPSTICK NEGATIVE NEGATIVE UA PROTEIN DIPSTICK NEGATIVE NEGATIVE UA GLUCOSE DIPSTICK NEGATIVE NEGATIVE UA KETONE DIPSTICK NEGATIVE NEGATIVE UA UROBILINOGEN DIPSTICK NORMAL NORMAL UA BILIRUBIN DIPSTICK NEGATIVE NEGATIVE UA BLOOD DIPSTICK 1+ NEGATIVE UA SPECIFIC GRAVITY 1.014 1.015-1.025 UR PH 5.0 5.0-7.0 UA MICROSCOPIC - 10/30/15 08:15 UA BACTERIA 1+ NEGATIVE UA MUCUS 1+ NEG TO 1+ UA RBC 0-3 rbc/hpf 0 - 3 UA VOLUME FOR EXAM 12.0 mL (12mL STD) UA WBC 20-50 wbc/hpf 0 - 5 URINE CULTURE - 10/30/15 08:15 Microbiology URINE CULTURE - 10/31/15 23:00 Microbiology CBC - 11/03/15 06:38 MEAN CELL HGB 31.3 pg 27.0-33.0 MEAN CELL HGB CONCENTRATION 32.2 g/dL 32.0-37.0 MEAN CELL VOLUME 97.2 fl 80.0-100.0 RED BLOOD CELL 4.66 m/cumm 4.00-6.00 RED CELL DISTRIBUTION WIDTH 11.8 % 11.0- 15.6 WHITE BLOOD CELL 7.9 k/cumm 5.0-10.0 HEMOGLOBIN 14.6 gm/dL 12.0-16.0 HEMATOCRIT 45.3 % 37.0-47.0 PLATELET COUNT 208 k/cumm 150-400 METABOLIC PANEL, [facility] - 11/03/15 06:38 POTASSIUM 3.3 mmol/L 3.5-5.3 EST GFR (MDRD) > 60 mL/min > 59 ANION GAP 5 mmol/L 5-15 EST CrCl (CG) > 60 mL/min > 59 GLUCOSE 92 mg/dL 70-99 CALCIUM 8.7 mg/dL 8.5-10.1 BLOOD UREA NITROGEN 12 mg/dL 7-20 CREATININE 0.8 mg/dL 0.6-1.0 SODIUM 137 mmol/L 135-148 CHLORIDE 98 mmol/L 98-110 AST/SGOT 20 Units/L 10-37 ALT/SGPT 26 Units/L < 66 CARBON DIOXIDE 34 mmol/L 21-32 TOTAL PROTEIN 6.5 gm/dL 6.4-8.2 ALBUMIN 2.9 gm/dL 3.4-5.0 BILI TOTAL 0.2 mg/dL 0.0-1.0 ALKALINE PHOSPHATASE TOTAL 152 IU/L 45- 117 CBC - 11/04/15 06:00 MEAN CELL HGB 31.4 pg 27.0-33.0 MEAN CELL HGB CONCENTRATION 32.9 g/dL 32.0-37.0 MEAN CELL VOLUME 95.4 fl 80.0-100.0 RED BLOOD CELL 4.39 m/cumm 4.00-6.00 RED CELL DISTRIBUTION WIDTH 11.7 % 11.0- 15.6 WHITE BLOOD CELL 8.0 k/cumm 5.0-10.0 HEMOGLOBIN 13.8 gm/dL 12.0-16.0 HEMATOCRIT 41.9 % 37.0-47.0 PLATELET COUNT 223 k/cumm 150-400 METABOLIC PANEL, [facility] - 11/04/15 06:00 POTASSIUM 4.1 mmol/L 3.5-5.3 EST GFR (MDRD) > 60 mL/min > 59 ANION GAP 6 mmol/L 5-15 GLUCOSE 80 mg/dL 70-99 CALCIUM 8.8 mg/dL 8.5-10.1 BLOOD UREA NITROGEN 10 mg/dL 7-20 CREATININE 0.7 mg/dL 0.6-1.0 SODIUM 142 mmol/L 135-148 CHLORIDE 104 mmol/L 98-110 AST/SGOT 37 Units/L 10-37 ALT/SGPT 40 Units/L < 66 CARBON DIOXIDE 32 mmol/L 21-32 TOTAL PROTEIN 6.0 gm/dL 6.4-8.2 ALBUMIN 2.8 gm/dL 3.4-5.0 BILI TOTAL 0.1 mg/dL 0.0-1.0 ALKALINE PHOSPHATASE TOTAL 138 IU/L 45- 117 MAGNESIUM - 11/04/15 06:00 MAGNESIUM 2.3 mg/dL 1.8-2.4 CBC W/DIFF - 11/07/15 06:00 EOSINOPHIL # 0.1 k/cumm 0.1-0.5 EOSINOPHIL % 1 % 2-4 GRANULOCYTE # 5.8 k/cumm 2.0-9.0 GRANULOCYTE % 64 % 50-75 LYMPHOCYTE # 2.5 k/cumm 1.0-4.0 LYMPHOCYTE % 28 % 20-30 MEAN CELL HGB 31.4 pg 27.0-33.0 MEAN CELL HGB CONCENTRATION 32.2 g/dL 32.0-37.0 MEAN CELL VOLUME 97.8 fl 80.0-100.0 MONOCYTE # 0.5 k/cumm 0.1-1.0 MONOCYTE % 6 % 4-6 RED BLOOD CELL 4.04 m/cumm 4.00-6.00 RED CELL DISTRIBUTION WIDTH 12.1 % 11.0- 15.6 WHITE BLOOD CELL 9.0 k/cumm 5.0-10.0 HEMOGLOBIN 12.7 gm/dL 12.0-16.0 HEMATOCRIT 39.5 % 37.0-47.0 PLATELET COUNT 214 k/cumm 150-400 METABOLIC PANEL, BASIC - 11/07/15 06:00 POTASSIUM 3.9 mmol/L 3.5-5.3 EST GFR (MDRD) > 60 mL/min > 59 ANION GAP 5 mmol/L 5-15 GLUCOSE 73 mg/dL 70-99 CALCIUM 8.5 mg/dL 8.5-10.1 BLOOD UREA NITROGEN 8 mg/dL 7-20 CREATININE 0.5 mg/dL 0.6-1.0 SODIUM 143 mmol/L 135-148 CHLORIDE 104 mmol/L 98-110 CARBON DIOXIDE 34 mmol/L 21-32 MAGNESIUM - 11/07/15 06:00 MAGNESIUM 2.5 mg/dL 1.8-2.4 CBC W/DIFF - 11/10/15 05:00 EOSINOPHIL # 0.1 k/cumm 0.1-0.5 EOSINOPHIL % 1 % 2-4 GRANULOCYTE # 5.6 k/cumm 2.0-9.0 GRANULOCYTE % 62 % 50-75 LYMPHOCYTE # 2.6 k/cumm 1.0-4.0 LYMPHOCYTE % 29 % 20-30 MEAN CELL HGB 31.5 pg 27.0-33.0 MEAN CELL HGB CONCENTRATION 31.6 g/dL 32.0-37.0 MEAN CELL VOLUME 99.5 fl 80.0-100.0 MONOCYTE # 0.6 k/cumm 0.1-1.0 MONOCYTE % 7 % 4-6 RED BLOOD CELL 4.26 m/cumm 4.00-6.00 RED CELL DISTRIBUTION WIDTH 12.6 % 11.0- 15.6 WHITE BLOOD CELL 9.1 k/cumm 5.0-10.0 HEMOGLOBIN 13.4 gm/dL 12.0-16.0 HEMATOCRIT 42.4 % 37.0-47.0 PLATELET COUNT 219 k/cumm 150-400 METABOLIC PANEL, [facility]PRE[facility] - 11/10/15 05:00 POTASSIUM 3.9 mmol/L 3.5-5.3 EST GFR (MDRD) > 60 mL/min > 59 ANION GAP 8 mmol/L 5-15 GLUCOSE 87 mg/dL 70-99 CALCIUM 8.8 mg/dL 8.5-10.1 BLOOD UREA NITROGEN 9 mg/dL 7-20 CREATININE 0.6 mg/dL 0.6-1.0 SODIUM 142 mmol/L 135-148 CHLORIDE 104 mmol/L 98-110 AST/SGOT 24 Units/L 10-37 ALT/SGPT 39 Units/L < 66 CARBON DIOXIDE 30 mmol/L 21-32 TOTAL PROTEIN 6.4 gm/dL 6.4-8.2 ALBUMIN 3.0 gm/dL 3.4-5.0 BILI TOTAL 0.2 mg/dL 0.0-1.0 ALKALINE PHOSPHATASE TOTAL 129 IU/L 45- 117 URINE CULTURE - 11/10/15 11:15 Microbiology METABOLIC PANEL, [facility] - 11/14/15 06:00 POTASSIUM 3.6 mmol/L 3.5-5.3 EST GFR (MDRD) > 60 mL/min > 59 ANION GAP 5 mmol/L 5-15 GLUCOSE 71 mg/dL 70-99 CALCIUM 8.8 mg/dL 8.5-10.1 BLOOD UREA NITROGEN 11 mg/dL 7-20 CREATININE 0.6 mg/dL 0.6-1.0 SODIUM 145 mmol/L 135-148 CHLORIDE 105 mmol/L 98-110 AST/SGOT 28 Units/L 10-37 ALT/SGPT 39 Units/L < 66 CARBON DIOXIDE 35 mmol/L 21-32 TOTAL PROTEIN 5.9 gm/dL 6.4-8.2 ALBUMIN 2.8 gm/dL 3.4-5.0 BILI TOTAL 0.2 mg/dL 0.0-1.0 ALKALINE PHOSPHATASE TOTAL 98 IU/L 45- 117 CBC - 11/14/15 06:00 MEAN CELL HGB 31.4 pg 27.0-33.0 MEAN CELL HGB CONCENTRATION 31.1 g/dL 32.0-37.0 MEAN CELL VOLUME 100.9 fl 80.0-100.0 RED BLOOD CELL 4.23 m/cumm 4.00-6.00 RED CELL DISTRIBUTION WIDTH 13.0 % 11.0- 15.6 WHITE BLOOD CELL 6.8 k/cumm 5.0-10.0 HEMOGLOBIN 13.3 gm/dL 12.0-16.0 HEMATOCRIT 42.7 % 37.0-47.0 PLATELET COUNT 202 k/cumm 150-400 HGB HCT - 11/14/15 20:06 MEAN CELL VOLUME 101.5 fl 80.0-100.0 HEMOGLOBIN 12.8 gm/dL 12.0-16.0 HEMATOCRIT 40.5 % 37.0-47.0 CBC - 11/15/15 17:45 MEAN CELL HGB 31.4 pg 27.0-33.0 MEAN CELL HGB CONCENTRATION 30.0 g/dL 32.0-37.0 MEAN CELL VOLUME 104.6 fl 80.0-100.0 RED BLOOD CELL 4.52 m/cumm 4.00-6.00 RED CELL DISTRIBUTION WIDTH 13.4 % 11.0- 15.6 WHITE BLOOD CELL 7.5 k/cumm 5.0-10.0 HEMOGLOBIN 14.2 gm/dL 12.0-16.0 HEMATOCRIT 47.3 % 37.0-47.0 PLATELET COUNT 209 k/cumm 150-400 CBC W/DIFF - 11/17/15 06:00 EOSINOPHIL # 0.1 k/cumm 0.1-0.5 EOSINOPHIL % 2 % 2-4 GRANULOCYTE # 4.2 k/cumm 2.0-9.0 GRANULOCYTE % 56 % 50-75 LYMPHOCYTE # 2.6 k/cumm 1.0-4.0 LYMPHOCYTE % 35 % 20-30 MEAN CELL HGB 31.2 pg 27.0-33.0 MEAN CELL HGB CONCENTRATION 30.8 g/dL 32.0-37.0 MEAN CELL VOLUME 101.3 fl 80.0-100.0 MONOCYTE # 0.5 k/cumm 0.1-1.0 MONOCYTE % 7 % 4-6 RED BLOOD CELL 4.58 m/cumm 4.00-6.00 RED CELL DISTRIBUTION WIDTH 13.1 % 11.0- 15.6 WHITE BLOOD CELL 7.5 k/cumm 5.0-10.0 HEMOGLOBIN 14.3 gm/dL 12.0-16.0 HEMATOCRIT 46.4 % 37.0-47.0 PLATELET COUNT 214 k/cumm 150-400 METABOLIC PANEL, COMPREHN - 11/17/15 06:00 POTASSIUM 3.1 mmol/L 3.5-5.3 EST GFR (MDRD) > 60 mL/min > 59 ANION GAP 6 mmol/L 5-15 GLUCOSE 75 mg/dL 70-99 CALCIUM 8.8 mg/dL 8.5-10.1 BLOOD UREA NITROGEN 10 mg/dL 7-20 CREATININE 0.6 mg/dL 0.6-1.0 SODIUM 144 mmol/L 135-148 CHLORIDE 103 mmol/L 98-110 AST/SGOT 20 Units/L 10-37 ALT/SGPT 36 Units/L < 66 CARBON DIOXIDE 35 mmol/L 21-32 TOTAL PROTEIN 6.8 gm/dL 6.4-8.2 ALBUMIN 3.3 gm/dL 3.4-5.0 BILI TOTAL 0.4 mg/dL 0.0-1.0 ALKALINE PHOSPHATASE TOTAL 107 IU/L 45- 117 CBC W/DIFF - 11/21/15 06:00 EOSINOPHIL # 0.1 k/cumm 0.1-0.5 EOSINOPHIL % 1 % 2-4 GRANULOCYTE # 5.5 k/cumm 2.0-9.0 GRANULOCYTE % 64 % 50-75 LYMPHOCYTE # 2.3 k/cumm 1.0-4.0 LYMPHOCYTE % 27 % 20-30 MEAN CELL HGB 31.2 pg 27.0-33.0 MEAN CELL HGB CONCENTRATION 30.6 g/dL 32.0-37.0 MEAN CELL VOLUME 101.9 fl 80.0-100.0 MONOCYTE # 0.7 k/cumm 0.1-1.0 MONOCYTE % 8 % 4-6 RED BLOOD CELL 4.20 m/cumm 4.00-6.00 RED CELL DISTRIBUTION WIDTH 13.2 % 11.0- 15.6 WHITE BLOOD CELL 8.6 k/cumm 5.0-10.0 HEMOGLOBIN 13.1 gm/dL 12.0-16.0 HEMATOCRIT 42.8 % 37.0-47.0 PLATELET COUNT 204 k/cumm 150-400 METABOLIC PANEL, COMPREHN - 11/21/15 06:00 POTASSIUM 3.2 mmol/L 3.5-5.3 EST GFR (MDRD) > 60 mL/min > 59 ANION GAP 3 mmol/L 5-15 GLUCOSE 74 mg/dL 70-99 CALCIUM 8.5 mg/dL 8.5-10.1 BLOOD UREA NITROGEN 13 mg/dL 7-20 CREATININE 0.7 mg/dL 0.6-1.0 SODIUM 142 mmol/L 135-148 CHLORIDE 104 mmol/L 98-110 AST/SGOT 11 Units/L 10-37 ALT/SGPT 25 Units/L < 66 CARBON DIOXIDE 35 mmol/L 21-32 TOTAL PROTEIN 6.4 gm/dL 6.4-8.2 ALBUMIN 3.2 gm/dL 3.4-5.0 BILI TOTAL 0.2 mg/dL 0.0-1.0 ALKALINE PHOSPHATASE TOTAL 99 IU/L 45- 117 THYROID STIM HORMONE (TSH) - 11/21/15 06:00 THYROID STIM HORMONE (TSH) 1.72 uIU/mL 0.34-4.82 URINE CULTURE - 11/22/15 23:30 Microbiology CBC W/DIFF - 11/24/15 06:00 EOSINOPHIL # 0.1 k/cumm 0.1-0.5 EOSINOPHIL % 1 % 2-4 GRANULOCYTE # 5.8 k/cumm 2.0-9.0 GRANULOCYTE % 64 % 50-75 LYMPHOCYTE # 2.5 k/cumm 1.0-4.0 LYMPHOCYTE % 27 % 20-30 MEAN CELL HGB 30.7 pg 27.0-33.0 MEAN CELL HGB CONCENTRATION 30.2 g/dL 32.0-37.0 MEAN CELL VOLUME 101.4 fl 80.0-100.0 MONOCYTE # 0.7 k/cumm 0.1-1.0 MONOCYTE % 8 % 4-6 RED BLOOD CELL 4.24 m/cumm 4.00-6.00 RED CELL DISTRIBUTION WIDTH 13.2 % 11.0- 15.6 WHITE BLOOD CELL 9.1 k/cumm 5.0-10.0 HEMOGLOBIN 13.0 gm/dL 12.0-16.0 HEMATOCRIT 43.0 % 37.0-47.0 PLATELET COUNT 187 k/cumm 150-400 METABOLIC PANEL, COMPREHN - 11/24/15 06:00 POTASSIUM 3.8 mmol/L 3.5-5.3 EST GFR (MDRD) > 60 mL/min > 59 ANION GAP 4 mmol/L 5-15 GLUCOSE 81 mg/dL 70-99 CALCIUM 8.4 mg/dL 8.5-10.1 BLOOD UREA NITROGEN 16 mg/dL 7-20 CREATININE 0.7 mg/dL 0.6-1.0 SODIUM 147 mmol/L 135-148 CHLORIDE 109 mmol/L 98-110 AST/SGOT 9 Units/L 10-37 ALT/SGPT 19 Units/L < 66 CARBON DIOXIDE 34 mmol/L 21-32 TOTAL PROTEIN 5.5 gm/dL 6.4-8.2 ALBUMIN 2.7 gm/dL 3.4-5.0 BILI TOTAL 0.2 mg/dL 0.0-1.0 ALKALINE PHOSPHATASE TOTAL 89 IU/L 45- 117 CBC W/DIFF - 11/27/15 11:54 EOSINOPHIL # 0.1 k/cumm 0.1-0.5 EOSINOPHIL % 1 % 2-4 GRANULOCYTE # 7.1 k/cumm 2.0-9.0 GRANULOCYTE % 73 % 50-75 LYMPHOCYTE # 1.7 k/cumm 1.0-4.0 LYMPHOCYTE % 17 % 20-30 MEAN CELL HGB 31.3 pg 27.0-33.0 MEAN CELL HGB CONCENTRATION 31.2 g/dL 32.0-37.0 MEAN CELL VOLUME 100.2 fl 80.0-100.0 MONOCYTE # 0.9 k/cumm 0.1-1.0 MONOCYTE % 9 % 4-6 RED BLOOD CELL 4.67 m/cumm 4.00-6.00 RED CELL DISTRIBUTION WIDTH 13.4 % 11.0- 15.6 WHITE BLOOD CELL 9.8 k/cumm 5.0-10.0 HEMOGLOBIN 14.6 gm/dL 12.0-16.0 HEMATOCRIT 46.8 % 37.0-47.0 PLATELET COUNT 182 k/cumm 150-400 HEPATIC FUNCTION PANEL - 11/27/15 11:54 BILI UNCONJUGATED 0.4 mg/dL 0.0-0.7 AST/SGOT 22 Units/L 10-37 ALT/SGPT 21 Units/L < 66 TOTAL PROTEIN 6.1 gm/dL 6.4-8.2 ALBUMIN 3.1 gm/dL 3.4-5.0 BILI TOTAL 0.5 mg/dL 0.0-1.0 ALKALINE PHOSPHATASE TOTAL 108 IU/L 45- 117 BILI CONJUGATED 0.1 mg/dL 0.0-0.3 CHEM/HEM PROFILE-BEDSIDE - 11/27/15 11:56 POTASSIUM 4.0 mmol/L 3.5-5.3 METHOD Bedside ANION GAP TEST NOT PERFORMED mmol/L 10- 20 METHOD Bedside GLUCOSE 100 mg/dL 70-99 BLOOD UREA NITROGEN 21 mg/dL 7-20 CREATININE 0.8 mg/dL 0.6-1.0 HEMOGLOBIN 15.3 gm/dL 12.0-16.0 HEMATOCRIT 45.0 % 37.0-47.0 SODIUM 139 mmol/L 135-148 CHLORIDE 98 mmol/L 98-110 CARBON DIOXIDE TEST NOT PERFORMED mmol/L 21-32 CALCIUM IONIZED 4.4 mg/dL 4.5-5.3 URINALYSIS, ROUTINE - 11/27/15 12:31 UA LEUKOCYTE ESTERASE DIPSTICK NEGATIVE NEGATIVE UA NITRITE DIPSTICK NEGATIVE NEGATIVE UA PROTEIN DIPSTICK 1+ NEGATIVE UA GLUCOSE DIPSTICK NEGATIVE NEGATIVE UA KETONE DIPSTICK NEGATIVE NEGATIVE UA UROBILINOGEN DIPSTICK NORMAL NORMAL UA BILIRUBIN DIPSTICK NEGATIVE NEGATIVE UA BLOOD DIPSTICK TRACE NEGATIVE UA SPECIFIC GRAVITY 1.020 1.015-1.025 UR PH 7.0 5.0-7.0 UA MICROSCOPIC - 11/27/15 12:31 UA AMORPHOUS SEDIMENT 2+ UA BACTERIA 1+ NEGATIVE UA EPITHELIAL CELLS 1+ epi/hpf 0 - 1+ UA RBC 0-3 rbc/hpf 0 - 3 UA VOLUME FOR EXAM 12.0 mL (12mL STD) UA WBC 2-5 wbc/hpf 0 - 5 Encounters ACCT No. Visit Date/Time Discharge Status Pt. Type Provider Facility Loc./Unit Complaint [id number] 03/25/2012 19:20:00 2011 14:13:00 DIS Inpatient Josette SANTA, [facility] on [address]
--- OUTSIDE RECORDS SUMMARY | 2016-08-25 18:04 | XMS REPORT | Continuity of Care Document ---
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 03/25/2012 Matt Finch MD External E849.[address]HW[address] 03/19/2014 Ankur Huitron MD 272.0 PURE HYPERCHOLESTEROLEM 03/19/2014 Ankur Huitron MD F 272.4 HYPERLIPIDEMIA NEC/NOS 03/19/2014 Ankur Huitron MD F 275.2 DIS MAGNESIUM METABOLISM 03/19/2014 Ankur Huitron MD F 285.1 AC POSTHEMORRHAG ANEMIA 03/19/2014 Ankur Huitron MD F 287.5 THROMBOCYTOPENIA NOS 03/19/2014 Ankur Huitron MD F 288.60 LEUKOCYTOSIS, UNSPECIFIED 03/19/2014 Ankur Huitron MD F 300.00 ANXIETY STATE NOS [...] TO OTH INTRNL ORTHPEDIC DEV, IMP,GRFT 03/19/2014 Ankur Huitron MD E878.8 ABN REACT-SURG PROC NEC [...] DORSAL DORSOLUMBAR SPINE, P COLUMN/T Elana SANTA, [place] 03/19/2014 81.64 FUSION/REFUS OF 9 OR MORE VERTEBRAE 03/19/2014 84.51 INSERTION OF INTERBODY SPINAL FUSION DEVICE 03/19/2014 84.52 INSERTION OF RECOMBINANT BONE MORPHOGENETIC PROTEI 03/19/2014 [id number] FUSION 2-7 T JT W INTBD FUS DEV, POST APPR A COLElana MD, [place] 03/17/2015 [id number] FUSION 2-7 T JT Babs NONAUT SUB, POST APPR P COL, OPE Elana SANTA, [place] 03/17/2015 [id number] PLAIN RADIOGRAPHY OF SPINAL CORD USING OTHER [...] 05:27 MAGNESIUM 1.8 mg/dL 1.8-2.4 METABOLIC PANEL, [facility] - 10/27/15 09:26 POTASSIUM 3.1 mmol/L 3.5-5.3 [...] PLATELET COUNT 208 k/cumm 150-400 [facility] PANEL, [facility] - 11/03/15 06:38 POTASSIUM 3.3 mmol/L 3.5-5.3 [...] PLATELET COUNT 223 k/cumm 150-400 [facility]EL, [facility] - 11/04/15 06:00 POTASSIUM 4.1 mmol/L 3.5-5.3 [...] Status Pt. Type Provider Facility Loc./Unit Complaint [id number] 03/25/2012 19:20:00 2011 14:13:00 DIS Inpatient Josette SANTA, Matt Jarrett [facility] on [address]
--- OUTSIDE RECORDS SUMMARY | 2016-08-25 18:04 | XMS REPORT | Continuity of Care Document ---
Author Author [facility] Organization [facility] Address Unknown Phone Unavailable Support Name Relationship Address Phone CHANDRIKA BARNES MD Caregiver [facility] [address] [place] [address] Unavailable MEGAN CRONIN DO Caregiver [address] [place] [address] [phone] JESSICA GOMEZ Next Of Kin [address] [id number] Insurance Providers Payer Name Policy Number Subscriber Name Relationship [facility] [id number] Jessica Gomez 01 Spouse Problems Medical Problems [...] 160 Mg PO DAILY 04/20/08 06/25/11 Discontinued [place]-3 Acid Ethyl Esters 1 G PO DAILY [...] F (96.8 - 99.1) Temperature (Calculated Celsius) 36.18558 degrees C (36.0 - 37.3) Pulse Rate [...] Report May 07, 2011 11:55am REFERENCE LAB [id number] - Lymphocytes # (Auto) March 25, 2012 [...] May 25, 2009 10:20am Not done - PRODUCT MARKETING INTERN Thyroid Stimulating Hormone (TSH) October 22, 2010 [...] YCOMMENT use urine in lab Urine Specific [place] October 22, 2010 4:30pm 1.010 L - [...] Encounters Encounter Location Date/Time Departed Emergency Room [facility] 06/30/14 5:59pm Recent Diagnosis
--- NOTE | 2016-08-25 18:05 | NUR ---
STATUS REPORT FROM RN THAT PT EXPERIENCED A "SEIZURE" RADIOLOGY WAS IN ROOM GETTING PT READY FOR CT. RADIOLOGY REQUESTS THAT A NURSE ACCOMPANY THEM TO CT
--- NOTE | 2016-08-25 18:06 | NUR ---
STATUS RN ACCOMPANIES PT TO CT
--- NOTE | 2016-08-25 18:10 | ERPDOC ---
Departure Disposition Decision Date: Aug 25, 2016 Disposition Decision Time: 19:27 (NIKOBELEN MANDUJANO APRN) Disposition: 01 DISCHARGED HOME, SELF-CARE Impression Impression (NIKONAZIABELEN Matias APRN) Impression: Primary Impression: Acute encephalopathy Severity: Moderate (NIKOBELEN MANDUJANO APRN) Condition: Stable Seen By: Mid-level only (BELEN MARRERO APRN) Referrals: MEGAN CRONIN DO (Family) Problems/Meds/Labs Reviewed?: Yes Medications reviewed and manag: Yes (BELEN MARRERO APRN) Follow up care ordered?: Yes Mental Status: Alert (BELEN MARRERO APRN) Scripts Levetiracetam (Levetiracetam) 500 Mg Tablet 1 TAB PO BID, #60 TAB 0 Refills Prov: NAVID ISRAEL MD 08/30/16 Losartan Potassium (Losartan Potassium) 50 Mg Tablet 50 MG PO DAILY for HYPERTENSION, #30 TAB Prov: NAVID ISRAEL MD 08/30/16 Bethanechol Chloride (Bethanechol Chloride) 10 Mg Tablet 1 TAB PO ACHS for 30 Days, #120 TAB BEST ON EMPTY STOMACH Prov: NAVID ISRAEL MD 08/30/16 Amoxicillin/Potassium Clav (Augmentin 875-125 Tablet) 1 Each Tablet 1 TAB PO BID for 5 Days, #10 TAB TAKE WITH MEALS Prov: NAVID ISRAEL MD 08/30/16 HPI - General Medical General Chief Complaint: Accidental Overdose Stated Complaint: OVERDOSE Time Seen by Provider: 17:59 Source: family (), EMS Exam Limitations: clinical condition (NIKOBELEN MANDUJAON APRN) Time Seen by Provider: 17:59 (GUERO MCCORMICK MD) HPI - General Medical Initial Comments She is brought in today per EMS for c/o unresponsiveness. Her does provide HPI and other history taken from EMS. She was home alone today. Her left the house around 0830 this morning. He states that they did have a cleaning lady come by who left around 1300. She had reported that she was in the recliner when she left and when he got home about an hour ago he found her in the chair. So she did get up and move positions. The cleaning lady reports that Prema had been asleep the duration of her visit. When he got home their dogs started barking and he heard her yell out quietly. He then went to check on her and she would not respond. When he got into the room she twisted in her chair and started having some eye twitching that he associated with a possible seizure. She was given Narcan per EMS and they felt that she did become more responsive after this. She does take Oxycodone daily and they are concerned that she may have had an accidental overdose of this medication. Her reports that she had been doing well at home otherwise. Had recently been started on Phentermine per Dr Cronin for weight loss and had voiced excitement about losing weight. Occurred At: home Onset: Gradual Duration: 6-12 hrs Severity: moderate Associated Symptoms: other (HPI taken from ), DENIES: cough, fever/ chills, loss of appetite, malaise, nausea/vomiting, shortness of breath, weakness Hx of Similar Symptoms: No (NOLD,BELEN N POTATO PANCAKE FRIER) Allergies: Coded Allergies: gatifloxacin (Verified Allergy, Intermediate, RASH, 03/02/16) Uncoded Allergies: FLUOROQUINOLONES (Allergy, Unknown, 09/05/15) Past History Past Medical History Metabolic: hypertension Musculoskeletal: back pain, neck pain Psychological: anxiety, bipolar, drug abuse (NOLD,BELEN N POTATO PANCAKE FRIER) Surgical History General: back, neck, other (NOLD,BELEN N POTATO PANCAKE FRIER) Vaccines Hx Influenza Vaccination: Yes (2014 (per pt.)) Hx Pneumococcal Vaccination: No (NOLD,BELEN N POTATO PANCAKE FRIER) Social History Smoking Status: Never smoker Substance Use Type: does not use Alcohol Intake: none Sexuality: male partner Housing: house Household Members: spouse Current Occupational Status: disabled (NOLD,BELEN N POTATO PANCAKE FRIER) Review of Systems Unable to Obtain ROS Due to: clinical condition (NOLD,BELEN N POTATO PANCAKE FRIER) Constitutional Constitutional: DENIES: chills, fatigue, fever, weakness (NOLD,BELEN N POTATO PANCAKE FRIER) ENMT Ears: DENIES: drainage, pain Sinuses: DENIES: congestion, rhinorrhea Mouth/Throat: DENIES: sore throat (NOLD,BELEN N POTATO PANCAKE FRIER) Pulmonary Respiratory: DENIES: cough (NOLD,BELEN N POTATO PANCAKE FRIER) GI Upper Abdomen: DENIES: nausea, vomiting Lower Abdomen: DENIES: diarrhea (NOLD,BELEN N POTATO PANCAKE FRIER) Integumentary Skin: DENIES: rash (NOLD,BELEN N POTATO PANCAKE FRIER) Neurological General: DENIES: headache, numbness, tingling, weakness (NOLD,BELEN N POTATO PANCAKE FRIER) Physical Exam General General Nourishment: well nourished, well developed, appears stated age, no acute distress, adult General Body Habitus: well groomed (JANES,BELEN N POTATO PANCAKE FRIER) Vitals and Pain Weight: Kilograms: Height (feet): 5 Height (inches): 7.00 Triage Pain Scale: (BELEN MARRERO N POTATO PANCAKE FRIER) RN VS reviewed by Provider: Yes (BELEN MARRERO POTATO PANCAKE FRIER) Normal Exams: Head: Normocephalic w/o trauma ENMT: No facial trauma, nasal exudates, pharyngeal erythema, or exudates are noted Neck: Full range of motion, without adenopathy, JVD, bruits or thyromegaly Chest/Resp: Clear all torrez, with good airflow, and symmetry bilaterally CV: Regular rate and rhythm, without murmur or gallop, Pulses 2+ all extremities, capillary refill, <2 seconds all ext., no pedal edema noted Abdomen: Bowel sounds positive, soft, non-tender, non-distended, no hepatosplenomegaly, masses or bruits noted Lymphatic: No lymphadenopathy, or lymphedema noted Integumentary: No rashes, hives, or bruising noted (NOLD,BELEN N POTATO PANCAKE FRIER) Eyes (brief) Eyes Brief: found: other (Pupils are equal and round but do not respond to light) (NOLD,BELEN N POTATO PANCAKE FRIER) Neurologic (brief) Neurological Brief: FOUND: other (She does moan and twitch on the cart but does not respond to command at all. Does respond to painful stimuli with localization. ) (NOLD,BELEN N POTATO PANCAKE FRIER) Neurologic GCS Adult : GCS Eye Opening: (4)Spontaneous GCS Verbal: (3)Inappropriate GCS Motor: (5)Localizes to Pain (NOLD,BELEN N POTATO PANCAKE FRIER) Differential Diagnoses Considering: Acute DC, Alcohol Intoxication, CVA, Drug Overdose, Encephalitis, Hypo/Hyperglycemia, Hypo/Hyperkalemia, Hypo/Hypernatremia, Intracranial Hemorrhage, Medication Effect, Metabolic, Poisoning/Accidental OD, Other (sepsis ) (NOLD,BELEN N POTATO PANCAKE FRIER) Progress Results/Orders Orders Procedure Category Date Status Time EKG EKG 08/25/16 Taken Iv Lock (Ed Only) EDM 08/25/16 Transmitted 18:04 Ct Head W/O Contrast CT 08/25/16 Resulted Drug Screen LAB 08/25/16 [place] [facility] [place] Acetaminophen LAB 08/25/16 Complete Salicylate LAB 08/25/16 Complete Cbc W/Auto LAB 08/25/16 Complete Diff-Reflex Manual Cmp - Comprehensive LAB 08/25/16 Complete Metabolic Troponin I W LAB 08/25/16 Complete Hemolysis Index Ethanol LAB 08/25/16 Complete Normal Saline (Normal PHA 08/25/16 Complete Saline Iv) 18:15 UA, LAB 08/25/16 Complete Dip&Micro(Complete) & 17:54 Naloxone (Narcan) PHA 08/25/16 Complete 18:30 Lactate - Lactic Acid LAB 08/25/16 Complete Lactate - Lactic Acid LAB 08/25/16 Complete 23:50 Blood Gas, Venous - LAB 08/25/[address] In Facility As: ADMIT 08/25/16 Transmitted (GUERO MCCORMICK MD) Lab Results Laboratory Tests Test 08/25/16 17:42 08/25/16 17:54 08/25/16 19:10 White Blood Count 11.3T/MM3 Red Blood Count 4.86M/MM3 Hemoglobin 15.1GM/DL Hematocrit 46.5% Mean Corpuscular Volume 95.7UM3 Mean Corpuscular Hemoglobin 31.1UUG Mean Corpuscular Hemoglobin Concent 32.5GM/DL RDW Standard Deviation 46.0FL Platelet Count 212T/MM3 Mean Platelet Volume 10.3UM3 Immature Granulocyte % (Auto) 0.3% Neutrophils (%) (Auto) 75.1% Lymphocytes (%) (Auto) 18.9% Monocytes (%) (Auto) 4.7% Eosinophils (%) (Auto) 0.6% Basophils (%) (Auto) 0.4% Absolute Immature Granulocyte (auto 0.03T/MM3 Absolute Neutrophils (auto) 8.5T/MM3 Absolute Lymphocytes (auto) 2.1T/MM3 Absolute Monocytes (auto) 0.5T/MM3 Absolute Eosinophils (auto) 0.1T/MM3 Absolute Basophils (auto) 0.0T/MM3 Turbidity < 20 Sodium Level 146MEQ/L Potassium Level 4.0MEQ/L Chloride Level 101MEQ/L Carbon Dioxide Level 29MEQ/L Anion Gap 16MEQ/L Blood Urea Nitrogen 9.0MG/DL Creatinine 0.7MG/DL Glomerular Filtration Rate Calc 85 BUN/Creatinine Ratio 13RATIO Glucose Level 117MG/DL Calculated Osmolality 281MOSM/KG Calcium Level 10.0MG/DL Total Bilirubin 0.70MG/DL Icterus Index < 2 Aspartate Amino Transf (AST/SGOT) 36U/L Alanine Aminotransferase (ALT/SGPT) 27U/L Alkaline Phosphatase 159U/L Troponin I < 0.012ng/ml Total Protein 7.8G/DL Albumin 4.5G/DL Globulin 3.3G/DL Albumin/Globulin Ratio 1.4RATIO Chemistry Specimen Hemolysis < 15 Salicylates Level < 1.0MG/DL Acetaminophen Level < 10UG/ML Alcohol, Quantitative <10MG/DL Urine Collection Type Cleancatch-midstream Urine Color Yellow Urine Turbidity Clear Urine pH 8.0 Urine Specific [place] 1.015 Urine Protein 1+ Urine Glucose (UA) Negative Urine Ketones Negative Urine Blood 1+ Urine Nitrite Negative Urine Bilirubin Negative Urine Urobilinogen 0.2EU/DL Urine Leukocyte Esterase Negative Urine RBC 3-5/HPF Urine WBC None seen/HPF Urine Squamous Epithelial Cells 0-5 Urine Bacteria Trace Urine Culture Indicated Cult not indicated Urine Opiates Screen NegativeNG/ML Urine Oxycodone Screen PositiveNG/ML Urine Methadone Screen NegativeNG/ML Urine Propoxyphene Screen NegativeNG/ML Urine Barbiturates Screen NegativeNG/ML Urine Tricyclic Antidepressants NegativeNG/ML Urine Phencyclidine Screen NegativeNG/ML Urine Amphetamines Screen PositiveNG/ML Urine Methamphetamines Screen NegativeNG/ML Urine Benzodiazepines Screen NegativeNG/ML Urine Cocaine Screen NegativeNG/ML Urine Cannabinoids Screen NegativeNG/ML Urine Drug Screen Confirmation Sent out Urine Drug Screen Information Ref lab rpt scanned Arterial Blood pH 7.430 Arterial Blood Partial Pressure CO2 46MMHG Arterial Blood pO2 at Patient Temp 84MMHG Arterial Blood HCO3 31MEQ/L Arterial Blood Total CO2 31.9MEQ/L Arterial Blood Oxygen Saturation 97.0% Arterial Blood Base Excess 5.3MMOL/L Oxygen Delivery Method (LAB) Simple mask, liters Blood Gas Oxygen Liter Flow 10 Blood Gas Oxygen Percent Given Blood Gas Vent Rate Blood Gas Tidal Volume ML (GUERO MCCORMICK MD) Medications Current ED Medications Sodium Chloride (Normal Saline IV) 1,000 ml @ 1,000 mls/hr Q1H ONCE IV Last administered on 08/25/16 18:20; Start 08/25/16 at 18:15; Stop 08/25/16 at 19:14 ; Status DC Naloxone HCl (Narcan) 0.4 mg O ONCE IV Last administered on 08/25/16 18:22; Start 08/25/16 at 18:30; Stop 08/25/16 at 18:31; Status DC (GUERO MCCORMICK MD) Progress Progress 1830-Patient ready to go to Ct. Noted that patient has snoring respirations. Sats remain 94% on RA. She is not responsive but is maintaining airway at this time with occasional snoring. Narcan IV ordered at this time and she does respond to the mediation. Is noticably more agitated and moans out when being interacted with. 1927- Discussed HPI, Labs, medications and CT results with Dr Leong. Given her continued altered status will admit at this time to CCU. She is continuing to moan out and is restless on the cart. When asked if she can say her name by lab she states "yes" but does not states her name. (BELEN MARRERO APRN) CT CT : Reason for Exam: Altered LOC CT: Head no contrast Interpretation: Normal (BELEN MARRERO APRN) BELEN MARRERO APRN Aug 25, 2016 18:09 GUERO MCCORMICK MD Sep 03, 2016 09:08
[2016-08-25 18:13] LABS: BLOOD, URINE 1+ (NEGATIVE); COLOR,URINE YELLOW (YELLOW); LEUKOCYTE ESTERASE ,URINE NEGATIVE (NEGATIVE); NITRITE,URINE NEGATIVE (NEGATIVE); UROBILINOGEN,URINE 0.2 EU/DL (NORMAL)
[2016-08-25] MEDS ORDERED: NORMAL SALINE 1,000 ML IV ONE (18:15)
[2016-08-25 18:16] LABS: BASOPHILS % (AUTO) 0.4 % (0-2); EOSINOPHILS # (AUTO) 0.1 T/MM3 (0-0.5); EOSINOPHILS % (AUTO) 0.6 % (0-4); HCT - HEMATOCRIT 46.5 % (36-46); HGB - HEMOGLOBIN 15.1 GM/DL (12-16); IMMATURE GRANULOCYTE # (AUTO) 0.03 T/MM3 (0.00-0.03); IMMATURE GRANULOCYTE % (AUTO) 0.3 % (0.0-0.5); LYMPHOCYTES # (AUTO) 2.1 T/MM3 (1-4.8); LYMPHOCYTES % (AUTO) 18.9 % (23-45); MEAN CORPUSCULAR HGB 31.1 UUG (26-34); MEAN CORPUSCULAR HGB CONC(MCHC 32.5 GM/DL (31-37); MEAN CORPUSCULAR VOLUME 95.7 UM3 (80-100); MEAN PLATELET VOLUME 10.3 UM3 (9.4-12.4); MONOCYTES # (AUTO) 0.5 T/MM3 (0-0.8); MONOCYTES % (AUTO) 4.7 % (0-9.0); NEUTROPHILS #(AUTO)-ABSOLUTE 8.5 T/MM3 (1.8-7.7); NEUTROPHILS % (AUTO) 75.1 % (33-66); RED BLOOD COUNT 4.86 M/MM3 (4.00-5.20); WBC - WHITE BLOOD COUNT 11.3 T/MM3 (4.5-11.0)
[2016-08-25 18:20] LABS: AMPHETAMINE SCREEN,URINE POSITIVE; BARBITURATE SCREEN,URINE NEGATIVE; BENZODIAZEPINES SCREEN,URINE NEGATIVE; CANNABINOID SCREEN,URINE NEGATIVE; COCAINE SCREEN,URINE NEGATIVE; METHADONE SCREEN, URINE NEGATIVE; METHAMPHETAMINE SCREEN, URINE NEGATIVE; OPIATE SCREEN,URINE NEGATIVE; PHENCYCLIDINE SCREEN,URINE NEGATIVE
[2016-08-25 18:21] LABS: TRICYCLIC ANTIDEPRESSANT,URINE NEGATIVE
[2016-08-25 18:22] LABS: ACETAMINOPHEN < 10 UG/ML (10-30); ALBUMIN 4.5 G/DL (3.5-5.0); ALBUMIN/GLOBULIN RATIO 1.4 RATIO (1.1-2.2); ALKALINE PHOSPHATASE 159 U/L (38-126); ALT (SGPT) 27 U/L (9-52); ANION GAP 16 MEQ/L (5-15); AST (SGOT) 36 U/L (14-36); BUN/CREATININE RATIO 13 RATIO (6-26); CHLORIDE 101 MEQ/L (98-107); CO2 - CARBON DIOXIDE 29 MEQ/L (22-30); CREATININE 0.7 MG/DL (0.7-1.2); ETHANOL <10 MG/DL (<10); GLOMERULAR FILTRATION RATE 85; GLUCOSE 117 MG/DL (65-110); SALICYLATE < 1.0 MG/DL (2-20); SODIUM 146 MEQ/L (134-144); TOTAL PROTEIN 7.8 G/DL (6.3-8.2)
[2016-08-25 18:29] LABS: SQUAMOUS EPITHELIAL CELL,UR 0-5; WBC,URINE NONE SEEN /HPF (0-5)
[2016-08-25 18:30] LABS: BACTERIA,URINE TRACE (NEGATIVE)
[2016-08-25] MEDS ORDERED: NALOXONE 0.4mg/ml INJECTION IV ONE ×2 (18:30→20:45)
--- NOTE | 2016-08-25 18:33 | NUR ---
BACK FROM CT
[2016-08-25 19:37] LABS: VBG TOTAL CO2 32.2 MEQ/L
--- OUTSIDE RECORDS SUMMARY | 2016-08-25 19:40 | XMS REPORT | Continuity of Care Document ---
Author Author [facility] Organization [facility] Address Unknown Phone Unavailable Allergies Active Description [...] Matt Finch MD External E812.0 MV COLLISION NEC-ANNEALER 03/25/2012 Matt Finch MD External E849.5 ACC [...] 03/19/2014 81.06 LUMBAR LUMBOSACRAL FUSION OF ANTERIOR COLUMN/[place] 03/19/2014 81.35 REFUSION OF DORSAL DORSOLUMBAR SPINE, P COLUMN/T Elana SANTA, [place] 03/19/2014 81.64 FUSION/REFUS OF 9 OR MORE VERTEBRAE 03/19/2014 84.51 INSERTION OF INTERBODY SPINAL FUSION DEVICE 03/19/2014 84.52 INSERTION OF RECOMBINANT BONE MORPHOGENETIC PROTEI 03/19/2014 [id number] FUSION 2-7 T JT W INTBD FUS DEV, POST APPR A COLElana MD, [place] 03/17/2015 [id number] FUSION 2-7 T JT Babs NONAUT SUB, POST APPR P COL, OPE Elana SANTA, [place] 03/17/2015 [id number] PLAIN RADIOGRAPHY OF SPINAL CORD USING OTHER [...] 05:27 MAGNESIUM 1.8 mg/dL 1.8-2.4 METABOLIC PANEL, [facility] - 10/27/15 09:26 POTASSIUM 3.1 mmol/L 3.5-5.3 [...] PLATELET COUNT 208 k/cumm 150-400 [facility] 11/[facility] 06:38 POTASSIUM 3.3 mmol/L [...] PLATELET COUNT 223 k/cumm 150-400 [facility]IC PANEL, [facility] 11/04/15 06:00 POTASSIUM 4.1 mmol/L [...] Status Pt. Type Provider Facility Loc./Unit Complaint [id number] 03/25/2012 19:20:00 2011 14:13:00 DIS Inpatient Josette SANTA, Matt Jarrett [facility] on [address]
--- OUTSIDE RECORDS SUMMARY | 2016-08-25 19:41 | XMS REPORT | Continuity of Care Document ---
Author Author [facility] Organization [facility] Address Unknown Phone Unavailable Support Name Relationship Address Phone CHANDRIKA BARNES MD Caregiver [facility] [address] [place] [address] Unavailable MEGAN CRONIN DO Caregiver [address] [place] [address] [phone] JESSICA GOMEZ Next Of Kin [address] [id number] Insurance Providers Payer Name Policy Number Subscriber Name Relationship [facility] [id number] Jessica Gomez 01 Spouse Problems Medical Problems [...] 160 Mg PO DAILY 04/20/08 06/25/11 Discontinued [place]-3 Acid Ethyl Esters 1 G PO DAILY [...] F (96.8 - 99.1) Temperature (Calculated Celsius) 36.20777 degrees C (36.0 - 37.3) Pulse Rate [...] Report May 07, 2011 11:55am REFERENCE LAB [id number] - Lymphocytes # (Auto) March 25, 2012 [...] May 25, 2009 10:20am Not done - FAN INSTALLER Thyroid Stimulating Hormone (TSH) October 22, 2010 [...] YCOMMENT use urine in lab Urine Specific [place] October 22, 2010 4:30pm 1.010 L - [...] Encounters Encounter Location Date/Time Departed Emergency Room [facility] 06/30/14 5:59pm Recent Diagnosis
[2016-08-25] MEDS ORDERED: ALBUTEROL/IPRATROPIUM INHAL. 2.5mg-0.5mg/3ml Neb. AEROSOL PRN (19:45)
[2016-08-25] MEDS ORDERED: ONDANSETRON 4mg/2ml INJECTION IV PRN (19:45)
[2016-08-25] MEDS ORDERED: QUET300T44 PO (19:48)
--- NOTE | 2016-08-25 19:55 | NUR ---
Admit To CCU 3 at this time, pt is quite somnolent.
--- NOTE | 2016-08-25 20:15 | DI ---
Indication: ITS.REASON: unresponsive PROCEDURE: CT HEAD W/O CONTRAST: Encounter: Initial Comparison: March 02, 2016 Technique: Axial CT images through the head were performed without contrast. Iterative Reconstruction dose reducing technique was utilized. FINDINGS: Mild to moderate motion artifact. The ventricles are of normal size, shape, and contour for the patient's age. There are scattered areas of low attenuation in the white matter which most likely represent changes from chronic microvascular ischemia. The brainstem, cerebellum, and cerebral hemispheres otherwise have a normal morphology and CT attenuation. There is no evidence of midline displacement. No hemorrhage, signs of acute territorial stroke, mass effect, mass lesions, or edema is evident. The visualized portions of the skull base, midface, and calvarium demonstrate no acute abnormality. Hyperostosis frontalis interna. The paranasal sinuses are well aerated and free of significant disease. The tympanic and mastoid cavities appear normal. IMPRESSION: No acute intracranial abnormality or hemorrhage. There is a preliminary report by virtual radiologic. .
[2016-08-25] MEDS ORDERED: NALOXONE 0.4mg/ml INJECTION IV PRN (20:45)
[2016-08-25] MEDS: NORMAL SALINE 1,000 ML IV SCH (20:48)
--- NOTE | 2016-08-25 21:00 | NUR ---
SEIZURE This RN at bedside with Michael RN and MOLLY RN, pt is noted to have a seizure lasting approx 45secs, O2 sats immediately drop from 90s to 60s with agonal breathing and turning blue in the face, pt placed on 15L NRBT mask pt takes a few "guppie" breaths post seizure and then stops spontaneous breaths, code blue activated, after several seconds spontaneous breathing returns, o2 sats still low, pt is quite somnolent, RT uses ambubag to maintain stats, Dr. Castelan responds from ED and verbalizes that intubation is not necessary at this time as sats are upper 90s, placed on 10L simple mask, orders received by Dr. Patrick telehospitalist and initiated including Dr. Salo gee on via robot to admit pt, verbalizes agreement with Dr. Chinchilla and Dr. Patrick. after add narcan IVP and initiation of narcan drip pt returns to similar state as on admission with yelling out frequently in pain, hyperalert and hypersensitive to touch, elevated BP, notified gerard Malagon drip off per Dr. Leong. resting bed with at bedside, will continue to monitor.
[2016-08-25] MEDS ORDERED: LEVETIRACETAM 1,000 MG in NORMAL SALINE 100 ML IV SCH (21:15)
[2016-08-25] MEDS ORDERED: LORAZEPAM 2 MG/ML INJECTION IV PRN (21:15)
--- NOTE | 2016-08-25 21:32 | DI ---
Indication: ITS.REASON: HYPOXIA PROCEDURE: CHEST 1 VIEW: Encounter: Initial Comparison: March 04, 2016 Findings: Post artifact limits the exam. Poor visualization of both lung bases. There is some asymmetric density in the medial right apex. No other areas of obvious consolidation seen. Trace fluid along the medial minor fissure. Cardiac silhouette remains moderately enlarged. Mediastinal contours are stable. Prior pulmonary vascular congestion has resolved. Degenerative change in the spine with cervical and thoracolumbar fixation hardware. Impression: Limited exam due to motion artifact. Asymmetric density in the medial right apex could be due to consolidation such as pneumonia or a soft tissue process such as adenopathy or mass. Recommend chest CT for further evaluation. .
[2016-08-25] MEDS: NALOXONE 0.4mg/ml INJECTION IV SCH ×3 (21:48→23:00)
[2016-08-25] MEDS ORDERED: HYDROMORPHONE 2mg/ml INJECTION IV ONE (23:45)
[2016-08-25] MEDS ORDERED: BACLOFEN 10 MG TABLET PO ONE (23:45)
[2016-08-26] VITALS (78 sets, daily range): BP systolic 122–212; BP diastolic 64–122; PULSE 85–124; RESP 9–62; TEMP 97.1–98.5; O2SAT 85–100
--- NOTE | 2016-08-26 00:01 | HPPDOC ---
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 The patient has had previous admissions for altered mental status resulting at times the need for intubation. Last admission appears to be February of last year. Patient was seen this morning by her as he was going to work at 8:00. The usps letter carrier came to the home at 1 PM and noted the patient was less responsive. The arrived home this afternoon and found her essentially unresponsive. EMS was activated. Patient was treated with Narcan and route. Patients mental status did improve. But then became more somnolent. In the emergency department patient was given an additional dose of Narcan. Workup in the emergency department is reassuring and in the emergency department the patient would respond to questions and did not demonstrate significant hypercapnic symptoms. The patients urine drug screen is positive for amphetamines and oxycodone. This could be consistent with medicines that she is prescribed. The patient had a CT of the head performed which was unremarkable. The patient at this time is to be admitted to the ICU for monitoring of unknown ingestion resulting in altered mental status. It should be noted that this admission is almost identical to her previous admission in February. Except the patient does not have to be intubated this time. The patients archives are managed in a time locked device that the manages. The is adamant that the patient is not overtaken her medicines that she has access to. The patient apparently has a history of seizures and is on oral Keppra. This was not indicated in previous old records. Note that the is currently not available for review. Ill affirmations obtained by review of old records and discussion with nursing personnel Past Medical History Past Medical History ingestion of meds, hypothyroid, depression, chronic back pain, HTN, neurogenic bladder, failed back syndrome, seizure disorder Surgical History Patient's Surgical History: lumbar, cervical, parathyroid Current Medications Home Meds Active Scripts Rivaroxaban (Xarelto) 15 Mg Tablet, 15 MG PO BIDWM, #40 TAB Take 1 tablet, by mouth, 2 times a day with meals. Prov:CHANDNI CARBALLO MD 03/17/16 Amlodipine Besylate (Amlodipine Besylate) 5 Mg Tablet, 5 MG PO DAILY, #30 TAB Prov:MEGAN CRONIN DO 03/07/16 Levetiracetam (Keppra) 500 Mg Tablet, 500 MG PO BID for 7 Days, #14 TAB 1 Refill Prov:MEGAN CRONIN DO 03/07/16 Reported Medications Indomethacin (Indomethacin) 50 Mg Capsule, 50 MG PO TID Y for PRN ORDERS 08/26/16 Bethanechol Chloride (Bethanechol Chloride) 10 Mg Tablet, 10 MG PO QID 08/26/16 Baclofen (Baclofen) 10 Mg Tablet, 10 MG PO Q2-3H 08/26/16 Bethanechol Chloride (Bethanechol Chloride) 25 Mg Tablet, 25 MG PO QID 08/26/16 Phentermine HCl (Phentermine HCl) 37.5 Mg Tablet, 37.5 MG PO DAILY 08/26/16 Quetiapine Fumarate (Quetiapine Fumarate) 300 Mg Tablet, 150 MG PO HS 08/25/16 Ipratropium/Albuterol Sulfate (Iprat-Albut 0.5-3(2.5) mg/3 ml) 3 Ml Ampul.neb, 1 VIAL AEROSOL Q2H Y for PRN ORDERS 03/07/16 Dextran 70/Hypromellose (Artificial Tears) 1 Each Droperette, 1 DROP BOTH EYES PRN 03/07/16 Polyethylene Glycol 3350 (Miralax) 17 Gm Powd.pack, 17 GM PO DAILY Y for CONSTIPATION 03/07/16 Pantoprazole Sodium (Pantoprazole Sodium) 40 Mg Tablet.dr, 40 MG PO ACB, TAB Take 1 tablet, by mouth, daily before breakfast. 03/07/16 Duloxetine HCl (Cymbalta) 30 Mg Capsule, 1 CAP PO HS, CAP 03/02/16 Duloxetine HCl (Cymbalta) 60 Mg Capsule.dr, 1 CAP PO DAILY, CAP 03/02/16 Oxycodone HCl (Oxycodone HCl) 20 Mg Tablet, 20 MG PO Q4H Y for PAIN 03/02/16 Oxycodone HCl (Oxycontin) 10 Mg Tab.er.12h, 10 MG PO BID 03/02/16 Levothyroxine Sodium (Levothyroxine Sodium) 50 Mcg Tablet, 50 MCG PO ACB 6/14/16 Prednisone (Prednisone) 10 Mg Tablet, 20 MG PO WB 10/25/15 Allergies: Coded Allergies: gatifloxacin (Verified Allergy, Intermediate, RASH, 03/02/16) Uncoded Allergies: FLUOROQUINOLONES (Allergy, Unknown, 09/05/15) Family History Family History: None identified Social History Smoking Status: Never smoker Substance Use Type: does not use Alcohol Intake: none Sexuality: male partner Housing: house Household Members: spouse Current Occupational Status: disabled Advance Directives: No DPOA for Healthcare Only Review of Systems All Other Systems All Other Systems: Reviewed (remainder of 10-point ROS Neg.) Comments Unobtainable due to the patients altered lOC. see what is described in the HPI Physical Exam General General Nourishment: well nourished, well developed, adult General Body Habitus: disheveled Vital Signs Vital Signs Date Time Temp Pulse Resp B/P Pulse Ox O2 Delivery O2 Flow Rate FiO2 08/25/16 20:00 116 24 08/25/16 19:55 97.3 197/91 93 Room Air Height (Feet): 5 Height (Inches): 6.00 Telemetry Rhythm: Sinus Rhythm Eyes Brief: FOUND: EOMI, PERRL, scleral icterus Neck Brief: FOUND: midline, NOT FOUND: JVD, nuchal rigidity, other, spasm, tenderness, tracheal deviation Respiratory Brief: FOUND: clear all torrez, equal bilaterally Comments wheezes and scattered rhonchi Cardiovascular (brief) Cardiac Brief: FOUND: regular rate, regular rhythm Capillary Refill: <2 sec Abdomen (brief) Abdominal Brief: FOUND: BS normo active x4, soft, NOT FOUND: distended, tender Integumentary (brief) Integumentary Brief: FOUND: dry, pink, warm Neurologic (brief) Comments no focal weakness Neurologic RN Documented GCS Eye Opening: (4)Spontaneous Verbal: (3)Inappropriate Motor: (5)Localizes to Pain Total: Psychiatric (brief) NOT FOUND: alert, attentive, normal affect, oriented, other Laboratory Laboratory Tests Test 08/25/16 17:42 08/25/16 17:54 08/25/16 19:10 08/25/16 19:33 White Blood Count 11.3T/MM3 Red Blood Count 4.86M/MM3 Hemoglobin 15.1GM/DL Hematocrit 46.5% Mean Corpuscular Volume 95.7UM3 Mean Corpuscular Hemoglobin 31.1UUG Mean Corpuscular Hemoglobin Concent 32.5GM/DL RDW Standard Deviation 46.0FL Platelet Count 212T/MM3 Mean Platelet Volume 10.3UM3 Immature Granulocyte % (Auto) 0.3% Neutrophils (%) (Auto) 75.1% Lymphocytes (%) (Auto) 18.9% Monocytes (%) (Auto) 4.7% Eosinophils (%) (Auto) 0.6% Basophils (%) (Auto) 0.4% Absolute Immature Granulocyte (auto 0.03T/MM3 Absolute Neutrophils (auto) 8.5T/MM3 Absolute Lymphocytes (auto) 2.1T/MM3 Absolute Monocytes (auto) 0.5T/MM3 Absolute Eosinophils (auto) 0.1T/MM3 Absolute Basophils (auto) 0.0T/MM3 Turbidity < 20 Sodium Level 146MEQ/L Potassium Level 4.0MEQ/L Chloride Level 101MEQ/L Carbon Dioxide Level 29MEQ/L Anion Gap 16MEQ/L Blood Urea Nitrogen 9.0MG/DL Creatinine 0.7MG/DL Glomerular Filtration Rate Calc 85 BUN/Creatinine Ratio 13RATIO Glucose Level 117MG/DL Calculated Osmolality 281MOSM/KG Calcium Level 10.0MG/DL Total Bilirubin 0.70MG/DL Icterus Index < 2 Aspartate Amino Transf (AST/SGOT) 36U/L Alanine Aminotransferase (ALT/SGPT) 27U/L Alkaline Phosphatase 159U/L Troponin I < 0.012ng/ml Total Protein 7.8G/DL Albumin 4.5G/DL Globulin 3.3G/DL Albumin/Globulin Ratio 1.4RATIO Chemistry Specimen Hemolysis < 15 Salicylates Level < 1.0MG/DL Acetaminophen Level < 10UG/ML Alcohol, Quantitative <10MG/DL Urine Collection Type Cleancatch-midstream Urine Color Yellow Urine Turbidity Clear Urine pH 8.0 Urine Specific Pryor 1.015 Urine Protein 1+ Urine Glucose (UA) Negative Urine Ketones Negative Urine Blood 1+ Urine Nitrite Negative Urine Bilirubin Negative Urine Urobilinogen 0.2EU/DL Urine Leukocyte Esterase Negative Urine RBC 3-5/HPF Urine WBC None seen/HPF Urine Squamous Epithelial Cells 0-5 Urine Bacteria Trace Urine Culture Indicated Cult not indicated Urine Opiates Screen NegativeNG/ML Urine Oxycodone Screen PositiveNG/ML Urine Methadone Screen NegativeNG/ML Urine Propoxyphene Screen NegativeNG/ML Urine Barbiturates Screen NegativeNG/ML Urine Tricyclic Antidepressants NegativeNG/ML Urine Phencyclidine Screen NegativeNG/ML Urine Amphetamines Screen PositiveNG/ML Urine Methamphetamines Screen NegativeNG/ML Urine Benzodiazepines Screen NegativeNG/ML Urine Cocaine Screen NegativeNG/ML Urine Cannabinoids Screen NegativeNG/ML Urine Drug Screen Confirmation Sent out Arterial Blood pH 7.430 Arterial Blood Partial Pressure CO2 46MMHG Arterial Blood pO2 at Patient Temp 84MMHG Arterial Blood HCO3 31MEQ/L Arterial Blood Total CO2 31.9MEQ/L Arterial Blood Oxygen Saturation 97.0% Arterial Blood Base Excess 5.3MMOL/L Oxygen Delivery Method (LAB) Simple mask, liters Room air Blood Gas Oxygen Liter Flow 10 Blood Gas Oxygen Percent Given Blood Gas Vent Rate Blood Gas Tidal Volume ML Venous Blood pH 7.520 Venous Blood Partial Pressure CO2 38MMHG Venous Blood Partial Pressure O2 51MMHG Venous Blood HCO3 31MEQ/L Venous Blood Total Carbon Dioxide 32.2MEQ/L Venous Blood Oxygen Saturation 90.0% Venous Blood Base Excess 7.6MMOL/L Plasma Lactate 1.5MMOL/L Radiology CT head neg for acute process Assessment & Plan Assessment 1. Overdose of unknown substance acute present admission: This patient presented altered, patient has access to narcotics possibly, patient has secured lockbox for narcotics, swears that she has not abused, this is identical to previous admissions, admitted to the ICU, monitor respiratory status, the patients been intubated in the past, further considerations in hopes of the medications wearing off, that the patient doesnt respond to Narcan , 2. Encephalopathy acute present on admission: See #1, most likely metabolic, patient this point in time will be admitted to the ICU, CT head was normal, the patient does not wake up significantly over the next 12 hours well consider further neuroimaging, neurochecks will be employed one in the ICU 3. Chronic pain disorder present on admission: Patient currently is on oxycodone and OxyContin. It is not clear if she is taking the medicines as prescribed. Per she is. It is always possible is patients receiving medicines outside the scope of her prescribed medications. 4. Seizure disorder chronic present on admission: Patient is on Keppra, S2 somewhat concerned with Narcan and seizures, will monitor carefully for potential seizures, 5. GERD chronic present on admission: IV PPI 6. Hypertension chronic present on admission: Currently patient is taking Norvasc, will monitor blood pressure with ongoing symptoms, when necessary IV hydralazine as indicated 7. DVT prophylaxis: SCD 8. Gastric prophylaxis: PPI Is not clear why the patient is on xaralto. Further investigation will need to occur. Addendum: Patients mental status per ER provider was stable. Patient was responsive to questions. Patient presents to the ICU. Patient had THOUGHT to be tonic- clonic activity previous. Patient says claim became apneic. A CODE BLUE was called. No chest compressions. Patient was assessed and placed on high flow oxygen. Patient subsequently woke up. The patient was given 1 g of Keppra IV and seizure precautions were employed. Patient started on a Narcan drip. Patient woke up and was very agitated. Narcan drip has been stopped. It is plausible that these episodes of altered mental status could be postictal periods. Consider neurological consultation if possible DVT Prophylaxis: SCD'S Code Status Full Code Hospital Course Summary Disclaimer The hospital course summary below is not to be considered part of the above Progress Note. NAVID ISRAEL MD 08/26/161809: Past Medical History Current Medications Home Meds Active Scripts Rivaroxaban (Xarelto) 15 Mg Tablet, 15 MG PO BIDWM, #40 TAB Take 1 tablet, by mouth, 2 times a day with meals. Prov:CHANDNI CARBALLO MD 03/17/16 Amlodipine Besylate (Amlodipine Besylate) 5 Mg Tablet, 5 MG PO DAILY, #30 TAB Prov:MEGAN CRONIN DO 03/07/16 Levetiracetam (Keppra) 500 Mg Tablet, 500 MG PO BID for 7 Days, #14 TAB 1 Refill Prov:MEGAN CRONIN DO 03/07/16 Reported Medications Indomethacin (Indomethacin) 50 Mg Capsule, 50 MG PO TID Y for PRN ORDERS 08/26/16 Bethanechol Chloride (Bethanechol Chloride) 10 Mg Tablet, 10 MG PO QID 08/26/16 Baclofen (Baclofen) 10 Mg Tablet, 10 MG PO Q2-3H 08/26/16 Bethanechol Chloride (Bethanechol Chloride) 25 Mg Tablet, 25 MG PO QID 08/26/16 Phentermine HCl (Phentermine HCl) 37.5 Mg Tablet, 37.5 MG PO DAILY 08/26/16 Quetiapine Fumarate (Quetiapine Fumarate) 300 Mg Tablet, 150 MG PO HS 08/25/16 Ipratropium/Albuterol Sulfate (Iprat-Albut 0.5-3(2.5) mg/3 ml) 3 Ml Ampul.neb, 1 VIAL AEROSOL Q2H Y for PRN ORDERS 03/07/16 Dextran 70/Hypromellose (Artificial Tears) 1 Each Droperette, 1 DROP BOTH EYES PRN 03/07/16 Polyethylene Glycol 3350 (Miralax) 17 Gm Powd.pack, 17 GM PO DAILY Y for CONSTIPATION 03/07/16 Pantoprazole Sodium (Pantoprazole Sodium) 40 Mg Tablet.dr, 40 MG PO ACB, TAB Take 1 tablet, by mouth, daily before breakfast. 03/07/16 Duloxetine HCl (Cymbalta) 30 Mg Capsule, 1 CAP PO HS, CAP 03/02/16 Duloxetine HCl (Cymbalta) 60 Mg Capsule.dr, 1 CAP PO DAILY, CAP 03/02/16 Oxycodone HCl (Oxycodone HCl) 20 Mg Tablet, 20 MG PO Q4H Y for PAIN 03/02/16 Oxycodone HCl (Oxycontin) 10 Mg Tab.er.12h, 10 MG PO BID 03/02/16 Levothyroxine Sodium (Levothyroxine Sodium) 50 Mcg Tablet, 50 MCG PO ACB 10/25/15 Prednisone (Prednisone) 10 Mg Tablet, 20 MG PO WB 10/25/15 Allergies: Coded Allergies: gatifloxacin (Verified Allergy, Intermediate, RASH, 03/02/16) Uncoded Allergies: FLUOROQUINOLONES (Allergy, Unknown, 09/05/15) Assessment & Plan Assessment Dr. Lou's note reviewed. Mrs. Arizmendi interviewed and examined. Her provided supplemental history. CC: Unresponsive HPI: Mrs. Arizmendi is a 60-year-old female with history of failed back syndrome and misuse of medications. Her reports that she was in usual state of health at 8 AM yesterday morning when he went to work. [place] reported the same late morning prior to going out to run an errand but on returning home at about 1 PM the patient was sleeping in a recliner. When her returned home later in the day he found her unresponsive with decreased respirations. EMS was summoned and patient transferred ported to the emergency room with Narcan given in route. Per ER records mental status improved with Narcan followed by recurrent somnolence for which additional Narcan was given and later the patient was briefly on a Narcan drip. Urine drug screen was positive for amphetamines and oxycodone. Both medications are accounted for by home medications and generally patient's controlled medications are controlled in a timed, locked medication box so she can only access current dosages. However her went through all medications at home and found one bottle in the patient's position that contained a couple of tablets of OxyIR, OxyContin, and Seroquel so inappropriate ingestion may have occurred. Head CT obtained in the emergency room was unremarkable. Patient was admitted to the intensive care unit and shortly after arrival had generalized tonic-clonic seizure with onset in the left upper extremity. She was bagged for short period of time but did not require intubation. The patient remained somnolent this morning often repeating the same phrase. She is unable to provide historical information and is not aware of her current location. PH/SH/FH: agree with that recorded above with additions of history alcohol abuse and narcotic abuse, postherpetic neuralgia, hyperlipidemia. She has had 3 thoracic/lumbar surgeries, cervical spine fusion, parathyroidectomy, bilateral tubal ligation, left breast biopsy, bilateral breast augmentation, cholecystectomy, right TKA, and bilateral knee arthroscopic surgeries. Family history is notable for father dying of complications of depression, hypertension , diabetes, and COPD. Brother and mother have hypertension and diabetes. Patient has past history of alcohol use but is no longer drinking per reports and reports currently smoking about 10 cigarettes daily. No reported history of illicit drug use. Patient is [employer] on disability. is alternate decision maker/DPOA and patient is full code. ROS: 10 point review cannot be reliably obtained EXAM: General-drowsy female, has difficulty following commands, 138/75 HEENT-PERRL, EOMI without nystagmus, conjugate gaze, facial structures symmetric , oropharynx clear, neck supple and without adenopathy Lungs-respirations nonlabored, decreased inspiratory effort but breath sounds clear Cardiac-regular rhythm, S1-S2 Abd-obese, soft, nontender, diminished bowel sounds Ext-without edema Skin-without generalized rash Neuro-withdraws all extremities to stimulation, spontaneous movement of upper extremities (initially did not raise left arm but later did so spontaneously symmetric to right arm use), lower extremities hypersensitive to palpation below the knees, EOMI grossly intact, tongue midline. Psych-confused, oriented 1, perseverates, cannot follow directions Portable chest x-ray reviewed by myself-borderline cardiomegaly and questionable soft tissue mass right apex versus confluent shadows. CT had also reviewed demonstrating some minor motion artifact but no acute intracranial pathology. Laboratory data notable for sodium of 147 this morning, alkaline phosphatase 150 with remainder of liver enzymes normal. Urine drug screen as noted and alcohol nondetectable. A/P: 1. Acute encephalopathy/altered level of consciousness 2. Probable drug overdose 3. Failed back syndrome with chronic pain 4. Generalized seizure, history seizure disorder 5. Hypertension 6. History of polysubstance abuse 7. Depression 8. Hypernatremia 9. Possible right apical mass The patient is awake at present but remains confused. Multiple medications remain on hold including oxycodone and baclofen. Please note patient is no longer taking prednisone or Xarelto although they appear on her home medication list. reports patient tends to keep old bottles of medications and will need to clarify which medications are actually currently being prescribed. Oral Keppra has been resumed as has Cymbalta and amlodipine. Plan psychiatric and neurologic consultations. Will likely need further imaging but will discuss with Dr. Jacobson tomorrow before proceeding as I don't believe we can get meaningful studies today without sedation. Neuro exam grossly nonfocal at present. is interested in drug rehabilitation at discharge. Repeat chest x-ray in a.m., may require CT imaging of the chest. Plan/Intensity of Service Old records reviewed by myself, x-rays reviewed by myself, laboratory data reviewed. Lengthy discussion with family members and patient's sponsor. Hospital Course Summary Hospital Course Summary 08/26/16 Patient found unresponsive at home with depressed respiratory drive. Narcan administered and later readministered with improvement. Admitted to the intensive care unit with suspected drug overdose; urine drug screen positive for oxycodone and amphetamines. Seizure shortly after admitted to ICU-IV Keppra given, oral Keppra resumed later in the day. Patient remains confused but is awake, perseverating. Oral narcotics on hold, baclofen on hold. Dr. Jacobson and psychiatry to be consulted. Suggestion of right upper lobe mass on chest x-ray, don't to be repeated for clarification. May require CT imaging. SUMAYA LOU MD Aug 25, 2016 22:23 NAVID ISRAEL MD Aug 26, 2016 18:10
--- NOTE | 2016-08-26 00:18 | NUR ---
Dilaudid Given at 2352 per DO for pt constantly moaning and yelloing out "ouch, ouch, ouch", pt is awake and alert to name at time of admin with RR 30s, HR 110s, BP 204/113, o2 90s on RA, pt is diaphoretic and restless. After admin pt became somewhat drowsy, appeared to be resting for approx 20mins, then did become more alert and begin moaning out occasionally. If pt unable to rest will contact Dr tyson.
[2016-08-26] MEDS: HYDROMORPHONE 2mg/ml INJECTION IV PRN ×7 (00:45→19:59)
[2016-08-26] MEDS: NALOXONE 0.4mg/ml INJECTION IV SCH ×10 (01:00→13:44)
[2016-08-26] MEDS: HEPARIN SUB-Q 5,000 unit/0.5ml vial SQ SCH ×3 (01:49→21:08)
[2016-08-26] MEDS: LORAZEPAM 2 MG/ML INJECTION IV PRN ×4 (02:23→21:08)
--- NOTE | 2016-08-26 02:30 | NUR ---
Hydralazine & Ativan Given per DO for continued hypertension unrelieved by Dilaudid & progressive anxiety. Pt has been moaning out in pain less frequently with q1h Dilaudid however has become increasingly anxious, no longer able to tolerate simple mask or nasal cannula. O2 sats do fall when resting, pt appears to have sleep apnea type episode while at rest but when RN attempts to apply supplemental O2 pt shakes head vigorously, yells/screams "No, I can't!" and immediately removes mask, will not even allow RN to attempt NC.
[2016-08-26 04:25] LABS: VBG TOTAL CO2 32.4 MEQ/L
[2016-08-26 04:27] LABS: BASOPHILS % (AUTO) 0.2 % (0-2); EOSINOPHILS % (AUTO) 0.1 % (0-4); HCT - HEMATOCRIT 44.2 % (36-46); HGB - HEMOGLOBIN 14.5 GM/DL (12-16); IMMATURE GRANULOCYTE # (AUTO) 0.02 T/MM3 (0.00-0.03); IMMATURE GRANULOCYTE % (AUTO) 0.2 % (0.0-0.5); LYMPHOCYTES % (AUTO) 16.8 % (23-45); MEAN CORPUSCULAR HGB 30.7 UUG (26-34); MEAN CORPUSCULAR HGB CONC(MCHC 32.8 GM/DL (31-37); MEAN CORPUSCULAR VOLUME 93.6 UM3 (80-100); MEAN PLATELET VOLUME 9.6 UM3 (9.4-12.4); MONOCYTES # (AUTO) 0.7 T/MM3 (0-0.8); MONOCYTES % (AUTO) 6.2 % (0-9.0); NEUTROPHILS #(AUTO)-ABSOLUTE 9.2 T/MM3 (1.8-7.7); NEUTROPHILS % (AUTO) 76.5 % (33-66); RED BLOOD COUNT 4.72 M/MM3 (4.00-5.20)
[2016-08-26 05:12] LABS: ALBUMIN/GLOBULIN RATIO 1.3 RATIO (1.1-2.2); ALKALINE PHOSPHATASE 150 U/L (38-126); ALT (SGPT) 30 U/L (9-52); ANION GAP 13 MEQ/L (5-15); AST (SGOT) 32 U/L (14-36); BUN/CREATININE RATIO 15 RATIO (6-26); CALCIUM 9.5 MG/DL (8.4-10.2); CHLORIDE 106 MEQ/L (98-107); CO2 - CARBON DIOXIDE 28 MEQ/L (22-30); CREATININE 0.6 MG/DL (0.7-1.2); GLOMERULAR FILTRATION RATE 102; GLUCOSE 114 MG/DL (65-110); POTASSIUM 3.5 MEQ/L (3.6-5); SODIUM 147 MEQ/L (134-144)
[2016-08-26] MEDS: NORMAL SALINE 1,000 ML IV SCH ×2 (05:36→08:04)
[2016-08-26] MEDS ORDERED: OXYMETAZOLINE 0.05% NASAL SPRAY 15 ML EA NOSTRIL PRN (12:30)
[2016-08-26] MEDS ORDERED: BETH25TA PO (12:56)
[2016-08-26] MEDS ORDERED: PHEN37.586 PO (12:56)
[2016-08-26] MEDS ORDERED: BETH10TA PO (13:04)
[2016-08-26] MEDS ORDERED: BACL10TA PO (13:04)
[2016-08-26] MEDS ORDERED: INDO50CA71 PO (13:04)
[2016-08-26] MEDS: LEVETIRACETAM 500 MG TABLET PO SCH (21:07)
[2016-08-26] MEDS: DULOXETINE 30 MG CAPSULE PO SCH (21:07)
[2016-08-26] MEDS ORDERED: OXYCODONE I.R. 5 MG TABLET PO PRN (21:15)
[2016-08-27] VITALS (28 sets, daily range): BP systolic 147–185; BP diastolic 69–110; PULSE 75–102; RESP 11–24; TEMP 97.6–98.8; O2SAT 87–97
[2016-08-27] MEDS: HYDROMORPHONE 2mg/ml INJECTION IV PRN ×7 (00:31→22:46)
[2016-08-27] MEDS: LORAZEPAM 2 MG/ML INJECTION IV PRN ×3 (03:42→17:36)
[2016-08-27 04:55] LABS: ANION GAP 12 MEQ/L (5-15); BUN/CREATININE RATIO 18 RATIO (6-26); C-REACTIVE PROTEIN 13.2 MG/L (0-9); CALCIUM 9.1 MG/DL (8.4-10.2); CHLORIDE 105 MEQ/L (98-107); CO2 - CARBON DIOXIDE 27 MEQ/L (22-30); CREATININE 0.6 MG/DL (0.7-1.2); GLOMERULAR FILTRATION RATE 102; GLUCOSE 91 MG/DL (65-110); MAGNESIUM 2.2 MG/DL (1.6-2.3); POTASSIUM 3.3 MEQ/L (3.6-5); SODIUM 144 MEQ/L (134-144)
[2016-08-27] MEDS: PANTOPRAZOLE 40 MG TABLET PO SCH (05:53)
[2016-08-27] MEDS: HEPARIN SUB-Q 5,000 unit/0.5ml vial SQ SCH ×3 (05:53→17:21)
[2016-08-27] MEDS: LEVOTHYROXINE 50 MCG TABLET PO SCH (05:54)
--- NOTE | 2016-08-27 06:33 | NUR ---
STATUS PT HAS BEEN RESTING IN BED FOR ALL OF THIS SHIFT, EASILY AROUSED FOR CARES, ONLY ALLOW STAFF TO REPOSITION/PREFORM BED ACTIVITY APPROX Q3H, PRIMARY COMPLAINT OF PAIN IS MUSCLE SPASMS IN THE LOWER EXTREMITIES, VSS WITH PRN HYDRALAZINE GIVEN WHEN AVAILABLE WELL PRN DILAUDID AND ATIVAN, PT DOES SEEM TO GET QUITE ANXIOUS/RESTLESS AT TIMES BECOMING TACHYPNEIC AND AGITATED, WITH ATIVAN IN USE PT C/O SPASMS LESS FREQUENTLY, HAS BEEN ON 2L O2 NC FOR MOST OF THE NIGHT, DOES DESAT WHILE SLEEPING.
[2016-08-27] MEDS: POLYETHYL.GLYCOL 3350 PACKET 17gm PO SCH (08:30)
[2016-08-27] MEDS: DULOXETINE 60 MG CAPSULE PO SCH (08:30)
[2016-08-27] MEDS: LEVETIRACETAM 500 MG TABLET PO SCH ×2 (08:31→20:46)
[2016-08-27] MEDS: AMLODIPINE 5 MG TABLET PO SCH (08:31)
[2016-08-27] MEDS ORDERED: POTASSIUM CHLORIDE 20 MEQ TABLET PO ONE (10:30)
[2016-08-27] MEDS ORDERED: LEVETIRACETAM 500 MG TABLET PO ONE (10:30)
[2016-08-27] MEDS ORDERED: LEVETIRACETAM 250 MG TABLET PO ONE (10:45)
[2016-08-27] MEDS ORDERED: CALMOSEPTINE OINTMENT 3.5 G PACKET TOP PRN (11:15)
[2016-08-27] MEDS: BACLOFEN 10 MG TABLET PO PRN ×2 (11:19→20:09)
--- NOTE | 2016-08-27 11:27 | NUR ---
DRESSING CHANGE RIGHT FOOT DRESSING CHANGE. TAKEN OFF BY JANET WATTS FROM WOUND CARE TEAM, REPLACED DRESSING BY USAMA WATTS. THIS NURSE. WOUND BED IS PINK, GRANULATION TISSUE, ELEVATED FROM SKIN LINE. PHUC PLACED TO SURROUNDING TISSUE, WOUND BED HAS AQUACEL AND MEPILEX TO COVER. PT TOLERATED WELL.
--- NOTE | 2016-08-27 11:28 | NUR ---
BENNETT LEVY IS 6. Addendum: 08/27/16 at 1128 by MISAEL GALVAN SW Amended: Links added.
--- NOTE | 2016-08-27 11:29 | NUR ---
BACLOFEN PRN BACLOFEN ORDERED AND GIVEN PER PT REQUEST.
--- NOTE | 2016-08-27 11:42 | PDWOUND ---
Wound Documentation Wound Management Wound : Location Modifier: Right, Anterior Wound Location: Foot Wound Type: Other (Diabetic Foot Ulcer) Wound Dressing Frequency: two times per week Wound Duration: > one month Wound Dressing Status: FOUND: Moist Wound Drainage Amount: Moderate Wound Drainage Description: Serosanguineous Wound Drainage Odor: None/Absent Wound General Appearance: FOUND Draining, FOUND Unapproximated Wound Bed: gran red, slough Periwound Description: Clear, indurated Wound Length (cm): 2.2 Wound Width (cm): 3.9 Wound Depth (cm): 0.4 Exposed: partial Wound Cleanser: soap and water Wound Primary Dressing Type: Aquacel AG, Mepilex Comments Pt know to us at the wound clinic and at this time wound as assessed as above. Pt will be seen again on Saturday if in the hospital educated to call and make an appointment if she is dismissed. TAYLOR KINGSTON RN Aug 27, 2016 11:42
[2016-08-27] MEDS ORDERED: LORAZEPAM 2 MG/ML INJECTION IV ONE (11:50)
--- NOTE | 2016-08-27 12:02 | CONSF ---
NEUROLOGY CONSULTATION DATE OF CONSULTATION 08/27/[address] Kilpatrick CHIEF COMPLAINT Altered mental status and possible seizure. HISTORY OF PRESENT ILLNESS The patient is a 56-year-old female with history of failed lower back and back pain, seizure disorder, anxiety, bipolar, drug abuse, and hypertension. The patient was in her normal state of health earlier on Saturday morning. The patient's left the house around 8 a.m. She had a digester hand coming to take care of the house around 1 p.m. She did well during that period. Later in the day the patient was found unresponsive by her at home. She was brought to the ER. The patient was given Narcan on her way to the ER and she did improve initially and then she became were more confused later. In the ER the patient gradually improved. She was able to answer a few questions. She was admitted to the Intensive Care Unit at [facility]. Her urine drug screen showed positivity for amphetamine and oxycodone which she has been taking as medication for her lower back pain. The patient denies being on amphetamine in particular. The patient normally takes Keppra for seizure. This was not initially recognized among her medication. The patient continued to have problem with mental status changes on the first day of admission. Later in the day she had a minor seizure lasting for about 45 seconds during which she had posturing and flexion of the arms. The patient was given diazepam at that time and she has been fine since. The patient has been complaining of severe leg cramping and pain associated with lower back pain. She was not given the baclofen that she normally takes for that. There is no other report of change in mental status during the admission. Her lab workup showed slightly elevated sodium level. She had a CT of the head on admission that showed no acute findings. Her white count was elevated due to possible seizure and posturing and altered mental status. There were no other signs of infection or sepsis on the patient. The patient had a similar admission in March 2016 during which she had to be intubated and she gradually improved. The patient denies overusing her medication or overdosing on any of the medication. Her seizure has been well controlled on Keppra. The patient had an extensive workup for seizure disorder in 2010 and 2011 which showed a showed some abnormalities on her MRI which later improved. Those were thought to be related to hypertension and PRES syndrome. She also had an EEG in 2011 that showed diffuse encephalopathy and no focal seizure activity. The patient has been taking Keppra 500 mg p.o. b.i.d. with no particular problem. PHYSICAL EXAMINATION The patient was awake, alert, oriented x 2. Pupils were round, reactive and equal. Extraocular muscles were intact. Visual field was full. Speech was slow and hesitant. Motor examination was 5-/5 in the upper extremities and 4 to 4+/5 in the lower extremity associated with cramping and pain. Deep tendon reflexes were 2/4. Sensory examination was symmetrical for light touch and pinprick. Plantar reflexes were equivocal to upgoing bilaterally. Coordination for [id number]-rl-[id number] was slow bilaterally. ASSESSMENT 1. Complex partial seizure with possible postictal confusion and unresponsiveness. 2. Encephalopathy associated with medication overuse or medication side effect. PLAN 1. Continue Keppra 500 mg p.o. b.i.d. This can be increased to 750 mg p.o. b.i.d. if having new seizures. 2. May use baclofen for muscle spasm and cramping. This may increase some of her confusion and seizure threshold, but patient has no other alternative for pain. 3. May use Valium lower dosage for muscle cramps until the patient's condition improves. 4. Obtain an MRI of the brain to check for any acute brain malfunctioning and focal abnormalities. Thank you. VITOR
[2016-08-27] MEDS ORDERED: GADOBUTROL 10mMol/10ml INJECTION IV ONE (13:16)
[2016-08-27] MEDS ORDERED: SALINE FLUSH 10ml SYRINGE ONE (13:16)
--- NOTE | 2016-08-27 14:05 | DI ---
EXAM: MRI BRAIN W/WO CONTRAST LOCATION OF DICTATION: [place] HISTORY: ITS.REASON: seizures COMPARISON: November 22, 2010 TECHNIQUE: Multiplanar, multisequence, MR imaging of the head with and without contrast was acquired. Contrast: 20 mL of Magnevist FINDINGS: The ventricles are of normal size, shape, and contour for the patient's age. There is a subcortical T2/FLAIR signal within the bilateral cerebral hemispheres increased from 2011 study and may simply represent changes from chronic small vessel ischemia. Given the interval change from the prior study and predominantly posterior location, PRES is also a consideration. The brain stem, cerebellum, and cerebral hemispheres otherwise have a normal morphologic appearance as well as MR signal intensity on all pulse sequences. Following intravenous administration of contrast, no areas of abnormal enhancement are evident. There are no areas of restricted diffusion to suggest an acute infarct. There is no evidence of an intracranial mass lesion, intracranial hemorrhage, or hydrocephalus. The visualized portions of the orbits, calvarium, paranasal sinuses, and skull base demonstrate no significant abnormality. IMPRESSION: 1. Deep/subcortical white matter changes possibly secondary to chronic small vessel ischemia which is progressed when compared with 2011. Given the patient's seizure history, interval change in MRI appearance, and the predominantly posterior location, posterior reversible encephalopathy (PRES) is also a consideration. There is no restricted diffusion to suggest acute or recent infarct. There are no abnormal areas of enhancement within the brain parenchyma. .
--- NOTE | 2016-08-27 14:06 | DI ---
LOCATION OF DICTATION: [facility] EXAM: CHEST, PA LATERAL HISTORY: ITS.REASON: hypoxia, possible apical abnormality COMPARISON: No prior studies available for comparison. FINDINGS: There is significant exaggerated thoracic kyphosis with posterior spinal fixation demonstrated. Anterior cervical disc fusion is noted. There is limited depth of inspiration. The heart size is upper limits normal. Bibasilar atelectasis. No evidence for developing pneumonia. No pneumothorax. No obvious pleural effusion. No definite apical lesions. IMPRESSION: 1. Limited depth of inspiration with bibasilar atelectasis or pneumonitis. 2. Heart size is upper limits normal. .
--- NOTE | 2016-08-27 15:02 | NUR ---
CM SPOKE WITH PT, INTRODUCED SELF, EXPLAINED ROLE, PROVIDED CONTACT INFO. PT STATED SHE LIVES WITH HER IN [place], AND HER DC PLAN IS TO RETURN HOME. PT DENIED HAVING ANY DC NEEDS/CONCERNS. SHE SAID SHE USED TO HAVE HOME HEALTH THROUGH [facility] BUT SHE NO LONGER HAS THIS AND DOES NOT WANT TO RESUME HOME HEALTH SERVICES. SHE SAID SHE DOES NOT NEED ANY MORE DME (SHE ALREADY HAS A WALKER). THIS WORKER ASKED ABOUT THE CIRCUMSTANCES LEADING UP TO HOSPITALIZATION. SHE SAID SHE TOOK A COUPLE OF BACLAFEN, AND SHE THINKS THIS IS THE RESULT. SHE SAID SHE IS IN CHARGE OF TAKING HER MEDS, BUT HER DOES SET THEM UP FOR HER. SHE GAVE PERMISSION FOR THIS WORKER TO CONTACT HER FOR DC PLANNING IF NEEDED. Addendum: 08/27/16 at 1505 by MISAEL GILLESPIE Amended: Links added. Addendum: 08/27/16 at 1705 by MISAEL GILLESPIE THIS WORKER ALSO ASKED PT IF SHE FEELS SHE NEEDS ANY SUBSTANCE ABUSE TREATMENT OR ASSISTANCE WITH HER MEDICATIONS. SHE STATED NO, SHE DENIED HAVING THIS NEED.
[2016-08-27] MEDS ORDERED: LISINOPRIL 10 MG TABLET PO ONE (19:45)
[2016-08-27] MEDS: LEVETIRACETAM 250 MG TABLET PO SCH (20:45)
[2016-08-27] MEDS: DULOXETINE 30 MG CAPSULE PO SCH (20:45)
[2016-08-27] MEDS: OXYCODONE 10 MG PO SCH (20:47)
--- NOTE | 2016-08-27 21:07 | PNPDOC ---
Subjective Date DATE: 08/27/16 TIME: 20:47 Subjective Prema reports she is much better today and that she has "cleared". She slept well last night and denies dyspnea, chest pain, palpitations, nausea/vomiting, or lightheadedness. She is eating without difficulty. She reports some discomfort in her mid back which is chronic and some intermittent mild clonus and muscle spasm. In retrospect she has no idea what transpired that led to altered mental status but speculates that she may have taken 2 or 3 baclofen at one time prompting somnolence. She denies other medication misuse. Objective Vital Signs Vital signs Vital Signs Date Time Temp Pulse Resp B/P Pulse Ox O2 Delivery O2 Flow Rate FiO2 08/27/16 19:15 Nasal Cannula 1.00 08/27/16 17:37 20 08/27/16 17:00 87 182/109 97 08/27/16 08:00 98.6 I/O 2340/1926 EXAM General-NAD, alert, cooperative, fluent speech HEENT-conjugate gaze, EOMI, conjunctiva clear, oropharynx clear, neck supple Lungs-respirations nonlabored, good airflow, breath sounds clear Cardiac-regular rhythm, S1-S2 Abd-obese, soft, nontender Ext-+1 edema Neuro-lower extremities tender to palpation, moving upper extremities well Psych-calm, pleasant Telemetry Rhythm: Sinus Rhythm Height (Feet): 5 Height (Inches): 6.00 Weight (Kilograms): 112.900 Laboratory Laboratory Laboratory Tests 08/26/16 04:07 08/27/16 04:17 Laboratory Tests 08/26/16 04:07 CRP 13.2 Radiology Chest x-ray reviewed by myself demonstrating borderline cardiomegaly, atelectasis, prior cervical fusion. No clear apical lesion. MRI brain with and without contrast demonstrates subcortical white matter changes secondary to small vessel ischemia which is worsened since study in 2010. Lesions are primarily posterior raising suggestion of posterior reversible encephalopathy and no evidence of acute infarction. Assessment & Plan Assessment Acute encephalopathy/altered level of consciousness Hypertension, uncontrolled Hypokalemia Possible drug overdose Failed back syndrome with chronic pain Generalized seizure, history seizure disorder History of polysubstance abuse Depression Hypernatremia-resolved Possible right apical mass Neurological status significantly improved today; muscle spasms and pain described overnight with confusion but all symptoms improved this morning. There was question of "posturing" but no discrete seizure activity reported overnight and even the posturing is not described in nursing notes. Blood pressure is persistently elevated. Patient not on antihypertensives at home and reports that blood pressures have been well controlled in recent office visits. PRES questioned on MRI and clinical scenario with encephalopathy, seizure, and hypertension consistent with the same. Amlodipine initiated yesterday, pressures remain high and she's required several doses of hydralazine for control. Lisinopril to be initiated today and will require titration. Psychiatric consultation requested following discussion with patient's yesterday. Her dose increased to 750 mg twice a day following discussion with Dr. Jacobson earlier today. Resume baclofen and oxy-IR for pain. Potassium supplemented orally, recheck in a.m. Chest x-ray without evidence of apical mass. Plan/Intensity of Service Chest x-ray and MRI reviewed by myself. Discussed with Dr. Jacobson, laboratory data reviewed, outpatient records reviewed to obtain full/current medication list. Code Status Full Code Hospital Course Summary Disclaimer The hospital course summary below is not to be considered part of the above Progress Note. Hospital Course Summary 08/26/16 Patient found unresponsive at home with depressed respiratory drive. Narcan administered and later readministered with improvement. Admitted to the intensive care unit with suspected drug overdose; urine drug screen positive for oxycodone and amphetamines. Seizure shortly after admitted to ICU-IV Keppra given, oral Keppra resumed later in the day. Patient remains confused but is awake, perseverating. Oral narcotics on hold, baclofen on hold. Dr. Jacobson and psychiatry to be consulted. Suggestion of right upper lobe mass on chest x-ray, don't to be repeated for clarification. May require CT imaging. 08/27/16 Neurological status significantly improved today; muscle spasms and pain described overnight with confusion but all symptoms improved this morning. There was question of "posturing" but no discrete seizure activity reported overnight and even the posturing is not described in nursing notes. Blood pressure is persistently elevated. Patient not on antihypertensives at home and reports that blood pressures have been well controlled in recent office visits. PRES questioned on MRI and clinical scenario with encephalopathy, seizure, and hypertension consistent with the same. Amlodipine initiated yesterday, pressures remain high and she's required several doses of hydralazine for control. Lisinopril to be initiated today and will require titration. Psychiatric consultation requested following discussion with patient's yesterday. Her dose increased to 750 mg twice a day following discussion with Dr. Jacobson earlier today. Resume baclofen and oxy-IR for pain. Potassium supplemented orally, recheck in a.m. Chest x-ray without evidence of apical mass. NAVID ISRAEL MD Aug 27, 2016 20:50
[2016-08-27] MEDS: BACLOFEN 20 MG TABLET PO SCH (21:12)
[2016-08-28] VITALS (12 sets, daily range): BP systolic 130–187; BP diastolic 69–104; PULSE 74–95; RESP 12–30; TEMP 97.7–98.8; O2SAT 90–97
[2016-08-28] MEDS: HEPARIN SUB-Q 5,000 unit/0.5ml vial SQ SCH ×3 (01:27→17:44)
--- NOTE | 2016-08-28 01:30 | NUR ---
PAIN C/O PAIN IN MID BACK. REQUESTING DILAUDID. GIVEN WITH PT RETURNING TO SLEEP. PT ENCOURAGED TO TURN ON SIDE BUT REFUSES, SAYING SHE WANTS TO LIE ON BACK.
[2016-08-28] MEDS: HYDROMORPHONE 2mg/ml INJECTION IV PRN ×3 (01:31→08:20)
[2016-08-28] MEDS: BACLOFEN 10 MG TABLET PO PRN ×5 (01:31→14:24)
[2016-08-28 05:20] LABS: BASOPHILS % (AUTO) 0.2 % (0-2); EOSINOPHILS # (AUTO) 0.1 T/MM3 (0-0.5); EOSINOPHILS % (AUTO) 1.1 % (0-4); HCT - HEMATOCRIT 44.2 % (36-46); HGB - HEMOGLOBIN 14.5 GM/DL (12-16); IMMATURE GRANULOCYTE # (AUTO) 0.03 T/MM3 (0.00-0.03); IMMATURE GRANULOCYTE % (AUTO) 0.3 % (0.0-0.5); LYMPHOCYTES # (AUTO) 2.4 T/MM3 (1-4.8); LYMPHOCYTES % (AUTO) 23.1 % (23-45); MEAN CORPUSCULAR HGB 31.5 UUG (26-34); MEAN CORPUSCULAR HGB CONC(MCHC 32.8 GM/DL (31-37); MEAN CORPUSCULAR VOLUME 95.9 UM3 (80-100); MEAN PLATELET VOLUME 10.1 UM3 (9.4-12.4); MONOCYTES # (AUTO) 0.8 T/MM3 (0-0.8); MONOCYTES % (AUTO) 7.5 % (0-9.0); NEUTROPHILS % (AUTO) 67.8 % (33-66); RED BLOOD COUNT 4.61 M/MM3 (4.00-5.20); WBC - WHITE BLOOD COUNT 10.3 T/MM3 (4.5-11.0)
[2016-08-28] MEDS: LEVOTHYROXINE 50 MCG TABLET PO SCH (05:20)
--- NOTE | 2016-08-28 05:20 | NUR ---
PAIN REQUESTING PAIN MEDS. C/O LEG SPASMS AND BACK PAIN. SEE MAR FOR MEDS GIVEN. HOB UP. REFUSES TO TURN TO SIDE. ALERT AND ORIENTED.
[2016-08-28] MEDS: PANTOPRAZOLE 40 MG TABLET PO SCH (05:22)
[2016-08-28 05:30] LABS: ANION GAP 10 MEQ/L (5-15); BUN/CREATININE RATIO 20 RATIO (6-26); CALCIUM 9.1 MG/DL (8.4-10.2); CHLORIDE 105 MEQ/L (98-107); CO2 - CARBON DIOXIDE 30 MEQ/L (22-30); CREATININE 0.6 MG/DL (0.7-1.2); GLOMERULAR FILTRATION RATE 102; GLUCOSE 96 MG/DL (65-110); POTASSIUM 3.5 MEQ/L (3.6-5); SODIUM 145 MEQ/L (134-144)
[2016-08-28] MEDS: LEVETIRACETAM 250 MG TABLET PO SCH ×2 (08:08→21:04)
[2016-08-28] MEDS: AMLODIPINE 5 MG TABLET PO SCH (08:08)
[2016-08-28] MEDS: DULOXETINE 60 MG CAPSULE PO SCH (08:08)
[2016-08-28] MEDS: LEVETIRACETAM 500 MG TABLET PO SCH ×2 (08:08→21:00)
[2016-08-28] MEDS: OXYCODONE 10 MG PO SCH ×2 (08:14→21:04)
[2016-08-28] MEDS: POLYETHYL.GLYCOL 3350 PACKET 17gm PO SCH ×2 (08:15→21:04)
--- NOTE | 2016-08-28 08:58 | NUR ---
STATUS AM cares provided. Patient assisted w/ cares. Up to chair w/ assist. Patient reports she feels weak and has leg spasms. Wants pain med and muscle relaxant.
[2016-08-28] MEDS ORDERED: LISINOPRIL 10 MG TABLET PO SCH (09:00)
--- NOTE | 2016-08-28 09:58 | PNF ---
DATE 08/28/2016 The patient's chief complaint is change in mental status and seizure. HISTORY OF PRESENT ILLNESS Patient is doing much better today. She is more awake and alert. She has had no new seizure since yesterday. Her Keppra dosage was increased to 750 mg p.o. b.i.d. with no problem. She had an MRI of the brain that showed chronic small vessel disease affecting mainly the posterior part of the brain. Those were seen in a previous MRI in 2010 and they were concerning for PRES syndrome. The patient has no new focal neurological deficit. Her vitals are stable. Her lab work is showing improvement in her white count and sodium level. The patient is still complaining of severe cramping in her lower extremity associated with her lower back pain. She did receive some baclofen yesterday and today and this probably has helped her. PHYSICAL EXAMINATION The patient has no significant change from yesterday. She is doing much better physically overall. Her motor strength has improved in the lower extremities to 4+ to 5-/5, upper extremities 5-/5. ASSESSMENT 1. Complex partial seizure with postictal confusion. 2. Metabolic encephalopathy. 3. No other signs of acute intracranial abnormalities or stroke. PLAN 1. Continue Keppra 750 mg p.o. b.i.d. 2. Continue baclofen for muscle cramps. 3. Discontinue the phentermine that patient was taking for weight loss. 4. The patient may benefit from rehabilitation concerning her lower back pain and leg weakness. [facility]
--- NOTE | 2016-08-28 10:07 | NUR ---
CM CALLED PT'S , JESSICA, TO DISCUSS DC PLANNING. HE SAID HE DOES NOT WANT DRUG REHAB FOR THE PT. HE SAID PT HAS GONE THROUGH THIS TWICE, AND HE DOES NOT THINK IT WILL BENEFIT HER TO GO AGAIN. HE DID HAVE QUESTIONS ABOUT PHYSICAL THERAPY REHAB, SINCE PT HAS HAD A PHYSICAL DECLINE OVER THE PAST SEVERAL WEEKS. HE ALSO ASKED ABOUT A STAY AT [facility] DUE TO PT'S DEPRESSION. HE SAID PT DOES HAVE A DOCUMENT ADVISOR THROUGH [facility] ([facility]) WHO MAKES HOME VISITS; BUT [facility] HAS BEEN BUSY SO THE VISITS HAVE BEEN LESS FREQUENT. THIS WORKER EXPLAINED THE PT/OT REHAB AND PSYCH STAY WILL BE ADDRESSED WITH THE DOCTOR; EXPLAINED THE PSYCH MIGHT NEED TO BE FOLLOWED UP WITH ON AN OUTPT BASIS, AND HE WAS AGREEABLE TO THIS. THIS WORKER ASKED FOR CLARIFICATION ABOUT PT'S MEDS, IF THEY ARE LOCKED OR NOT. HE SAID THE MEDS ARE IN A LOCKED BOX THAT OPENS AUTOMATICALLY ON A TIMER EVERY 4 HOURS. HE SAID THE PT HAS ACCESS TO THIS WHILE HE IS AT WORK. HE SAID SHE CAN TAKE THE MEDS OUT ON HER OWN, AND SHE CAN TAKE THEM OUT TO "LIAT" THEM IF SHE WOULD CHOOSE TO. HE SAID HE ASKED HER ABOUT THIS BUT SHE DENIED THAT THIS WAS THE CASE.
[2016-08-28] MEDS ORDERED: POTASSIUM CHLORIDE 20 MEQ TABLET PO ONE (11:15)
--- NOTE | 2016-08-28 11:15 | NUR ---
HECTOR jay. Friend and at bedside.
--- NOTE | 2016-08-28 12:30 | NUR ---
TRANSFER Patient transferred to Rm. 166 per orders. Patient and family aware of transfer.
--- NOTE | 2016-08-28 12:50 | PNPDOC ---
Subjective Date DATE: 08/28/16 TIME: 12:18 Subjective Prema reports that she feels much better today. She reiterated several things that she told me yesterday, apparently not recalling conversation we had late in the day. She describes increased muscle cramping from baseline and requested when necessary baclofen (previously ordered), constipation, and chronic back pain. Nursing confirmed that she had a bowel movement but the stool was hard. Bernard catheter remains in and patient was pleased when I recommended removal. She denies dyspnea, fevers, lightheadedness, or headache. She additionally advised me that she has losartan at home although is not taking it currently. She believe she is weaker than usual and hopes to discharge to IRU. Objective Vital Signs Vital signs Vital Signs Date Time Temp Pulse Resp B/P Pulse Ox O2 Delivery O2 Flow Rate FiO2 08/28/16 08:20 22 08/28/16 08:00 98.4 83 187/88 90 Nasal Cannula 1.00 I/O 1040/3209 EXAM General-NAD, alert, fluent speech but some repetition/reiteration HEENT-conjunctiva clear, EOMI Lungs-respirations nonlabored, good airflow, breath sounds clear anteriorly/ laterally Cardia regular rhythm, S1-S2 c- Abd-soft, nontender, diminished bowel sounds Ext-trace edema bilaterally Neuro-lower extremities hypersensitive to palpation, symmetric manager party, raises both legs off the ground while in a seated position Psych-oriented 3, cooperative Telemetry Rhythm: Sinus Rhythm Height (Feet): 5 Height (Inches): 6.00 Weight (Kilograms): 113.700 Laboratory Laboratory Laboratory Tests 08/27/16 04:17 08/28/16 04:24 Laboratory Tests 08/28/16 04:24 Assessment & Plan Assessment Acute encephalopathy/altered level of consciousness-present on admission Hypertension, uncontrolled Hypokalemia Possible drug overdose Failed back syndrome with chronic pain Generalized seizure-present on admission, history seizure disorder History of polysubstance abuse Depression Hypernatremia-resolved Possible right apical mass-not evident on repeat chest x-ray Neurological improved, no reported seizures overnight. Continue Keppra 750 mg twice a day Ongoing pain control issues and muscle spasms. Home regimen resumed and IV narcotics discontinued. Home dosage oral baclofen available. Evaluated by Dr. Dill, recommendations pending. Persistent depressive symptoms per Dr. Dill, may benefit from inpatient or day Hospital psychiatric care. Blood pressure improving but remains moderately elevated. Continue dual medications but will switch from lisinopril to ARB per patient request. PT/OT consults; IRU evaluation. Potassium supplemented further today. Stable to transfer out of ICU at this time. Plan/Intensity of Service Discussed with Dr. Dill, laboratory data reviewed. Discussed with nursing. Code Status Full Code Hospital Course Summary Disclaimer The hospital course summary below is not to be considered part of the above Progress Note. Hospital Course Summary 08/26/16 Patient found unresponsive at home with depressed respiratory drive. Narcan administered and later readministered with improvement. Admitted to the intensive care unit with suspected drug overdose; urine drug screen positive for oxycodone and amphetamines. Seizure shortly after admitted to ICU-IV Keppra given, oral Keppra resumed later in the day. Patient remains confused but is awake, perseverating. Oral narcotics on hold, baclofen on hold. Dr. Jacobson and psychiatry to be consulted. Suggestion of right upper lobe mass on chest x-ray, don't to be repeated for clarification. May require CT imaging. 08/27/16 Neurological status significantly improved today; muscle spasms and pain described overnight with confusion but all symptoms improved this morning. There was question of "posturing" but no discrete seizure activity reported overnight and even the posturing is not described in nursing notes. Blood pressure is persistently elevated. Patient not on antihypertensives at home and reports that blood pressures have been well controlled in recent office visits. PRES questioned on MRI and clinical scenario with encephalopathy, seizure, and hypertension consistent with the same. Amlodipine initiated yesterday, pressures remain high and she's required several doses of hydralazine for control. Lisinopril to be initiated today and will require titration. Psychiatric consultation requested following discussion with patient's yesterday. Her dose increased to 750 mg twice a day following discussion with Dr. Jacobson earlier today. Resume baclofen and oxy-IR for pain. Potassium supplemented orally, recheck in a.m. Chest x-ray without evidence of apical mass. 08/28/16 Neurological improved, no reported seizures overnight. Continue Keppra 750 mg twice a day Ongoing pain control issues and muscle spasms. Home regimen resumed and IV narcotics discontinued. Home dosage oral baclofen available. Evaluated by Dr. Dill, recommendations pending. Persistent depressive symptoms per Dr. Dill, may benefit from inpatient or day Hospital psychiatric care. Blood pressure improving but remains moderately elevated. Continue dual medications but will switch from lisinopril to ARB per patient request. PT/OT consults; IRU evaluation. Potassium supplemented further today. Stable to transfer out of ICU at this time. NAVID ISRAEL MD Aug 28, 2016 12:34
--- NOTE | 2016-08-28 14:02 | NUR ---
RECEIVED ORDER FROM DR ISRAEL FOR INCREASED PAIN MEDICATION ORDERS FOR PRN BRICE. PT STATES SHE RECEIVES 20MG PO BRICE IR Q4H AT HOME. ORDERS PLACED IN EMAR
--- NOTE | 2016-08-28 17:37 | GENHPPDOC ---
[facility] 08/28/16 Start Time: 10:40 Stop Time: 11:20 >50% of this visit spent in counseling/coordination care. Chief Complaint: "I don't know what happened but I must have taken too much of my medication" History of Present Illness Patient is a 60-year-old , unemployed female who was admitted to [facility] [place] on [place]16 after being found unresponsive at home by her . Patient responded to Narcan and it is believe that she overdosed on some of her medications. Patient has had waxing/waning LOC since admission though her mentation has reportedly cleared significantly by the time of our interview today. Psychiatry was consulted for recommendations into what level of care may be appropriate next for the patient. Patient has a history of drug abuse (including alcohol per her report as well as narcotics) and currently has a pain doctor. She had a similar event several months ago where she overdosed (reportedly unintentionally) and required inpatient hospitalization as well. She states that she does have a pain management contract with a doctor at [facility] and has an appointment scheduled in September. Because of past difficulties, patient's manages her medications and she is not supposed to have access to them other than through a timed-release med shoe lay out planner, though there are varying reports of old medications at home or patient could have stockpiled medications from her shoe lay out planner if she didn't previously take them. Patient is cooperative through the interview, though intermittently tearful and very ruminative. She states that she could not sleep Saturday night and so took 2 Baclofen around 3-4 AM. Her left town on Saturday and she felt "physically terrible, light headed and confused" through the day. She remembers her compliance intern coming but does not remember anything after that until she was at the hospital. She acknowledges that she must have taken her medication other than how it was prescribed, though she feels it was out of confusion and adamantly denies that it was a suicide attempt. Patient does admit that she has not been reliable with pills in the past and that her medications can be difficult to manage as she takes many pills each day. Patient does state that she is "not happy," primarily due to her quality of life and limitations that she feels due to chronic pain. 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 Now she feels mobility is very difficult for her and she feels guilty for "holding her back." She is frequently tearful when she talks about this. She says she has morbid thoughts at times but lists druze as her protective factor. She takes Cymbalta now and has taken various antidepressants in the past. She denies any history of manic symptoms. She denies any history of prior suicide attempts or psychiatric hospitalizations. She does see a therapist through [facility] but has not seen her as much recently as she had in the past. At one point during our interview, patient began to answer my question and then stared off into space. A SLUMS was performed and patient scored a 26/30, which is not as high as I would expect given her education level. 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 She was not able to answer the question about money and took a long time to draw the clock, though she ended up doing it correctly. She could only name 12 animals in 1 minute and repeated some multiple times. Patient is open to recommendations though she would prefer not go to inpatient psych. I stated that I would discuss things with her and that we could all decided upon a plan once she was medically stable. She states that she feels she would benefit from physical rehab as she has been laying in bed for 2 days and feels deconditioned. Depression: sad, hopeless, decreased energy, social withdrawl, guilty, morbid thinking Past Medical History Past Medical History ingestion of meds, hypothyroid, depression, chronic back pain, HTN, neurogenic bladder, failed back syndrome, seizure disorder Surgical History Patient's Surgical History: lumbar, cervical, parathyroid Current Medications Home Meds Active Scripts Amlodipine Besylate (Amlodipine Besylate) 5 Mg Tablet, 5 MG PO DAILY, #30 TAB Prov:MEGAN CRONIN DO 03/07/16 Levetiracetam (Keppra) 500 Mg Tablet, 500 MG PO BID for 7 Days, #14 TAB 1 Refill Prov:CANDICEAMEGAN B DO 03/07/16 Reported Medications Indomethacin (Indomethacin) 50 Mg Capsule, 50 MG PO TID Y for PRN ORDERS 08/26/16 Baclofen (Baclofen) 10 Mg Tablet, 10 MG PO Q2-3H Y for SPASMS DO NOT EXCEED 8 TABLETS IN 24 HOURS 08/26/16 Bethanechol Chloride (Bethanechol Chloride) 25 Mg Tablet, 25 MG PO QID 08/26/16 Phentermine HCl (Phentermine HCl) 37.5 Mg Tablet, 37.5 MG PO DAILY 08/26/16 Quetiapine Fumarate (Quetiapine Fumarate) 300 Mg Tablet, 150 MG PO HS 08/25/16 Ipratropium/Albuterol Sulfate (Iprat-Albut 0.5-3(2.5) mg/3 ml) 3 Ml Ampul.neb, 1 VIAL AEROSOL Q2H Y for PRN ORDERS 03/07/16 Dextran 70/Hypromellose (Artificial Tears) 1 Each Droperette, 1 DROP BOTH EYES PRN 03/07/16 Polyethylene Glycol 3350 (Miralax) 17 Gm Powd.pack, 17 GM PO DAILY Y for CONSTIPATION 03/07/16 Pantoprazole Sodium (Pantoprazole Sodium) 40 Mg Tablet.dr, 40 MG PO ACB, TAB Take 1 tablet, by mouth, daily before breakfast. 03/07/16 Duloxetine HCl (Cymbalta) 30 Mg Capsule, 1 CAP PO HS, CAP 03/02/16 Duloxetine HCl (Cymbalta) 60 Mg Capsule.dr, 1 CAP PO DAILY, CAP 03/02/16 Oxycodone HCl (Oxycodone HCl) 20 Mg Tablet, 20 MG PO Q4H Y for PAIN 03/02/16 Oxycodone HCl (Oxycontin) 10 Mg Tab.er.12h, 10 MG PO BID 03/02/16 Levothyroxine Sodium (Levothyroxine Sodium) 50 Mcg Tablet, 50 MCG PO ACB 10/25/15 Allergies: Coded Allergies: gatifloxacin (Verified Allergy, Intermediate, RASH, 03/02/16) Uncoded Allergies: FLUOROQUINOLONES (Allergy, Unknown, 09/05/15) Family History Family History: Patient reports that she has 3 brothers with depression. Denies family history of bipolar disorder, schizohprenia, suicide attempts. 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 Neurological General: memory disturbances, seizures (history of seizures, PRES) Psychiatric Psychiatric: depression, emotional instability, memory impairment (related to overdose) All Other Systems All Other Systems: Reviewed Generations Exam Vitals Vital Signs Date Time Temp Pulse Resp B/P Pulse Ox O2 Delivery O2 Flow Rate FiO2 08/28/16 08:20 22 08/28/16 06:00 76 168/81 94 Nasal Cannula 1.00 08/28/16 04:01 97.7 Physical examination performed by the hospitalist. Height (Feet): 5 Height (Inches): 6.00 Mental Status Exam Muscle Strength/Tone: Normal Dressing: Casual Grooming: Fair, Other (Patient sweating a lot) Attitude: Cooperative Motor Activity: Normal Eye Contact: Good Speech: Normal Volume: Normal Rhythm: Appropriate Rhythm Sensory: Alert Orientation: Oriented X4 Mood: Depressed Affect: Other (Tearful) Rate of Thoughts: Appropriate Rate Thought Organization: Organized Associations: Intact Abstract Reasoning: Intact, able to abstract Thought Content: Ruminations, Hopelessness Perception/Psychotic: Perception Normal Attention Span/Concentration: Normal Language: Naming Intact Fund of Knowledge: Janeen aware current events Memory: Other (Limited memory of events leading to admission; otherwise intact) Suicidal Ideation: Denies Homicidal Ideation: Denies Insight: Limited Judgment: Limited Impulse Control: Fair Laboratory Tests Test 08/28/16 04:24 White Blood Count 10.3T/MM3 Red Blood Count 4.61M/MM3 Hemoglobin 14.5GM/DL Hematocrit 44.2% Mean Corpuscular Volume 95.9UM3 Mean Corpuscular Hemoglobin 31.5UUG Mean Corpuscular Hemoglobin Concent 32.8GM/DL RDW Standard Deviation 47.8FL Platelet Count 197T/MM3 Mean Platelet Volume 10.1UM3 Immature Granulocyte % (Auto) 0.3% Neutrophils (%) (Auto) 67.8% Lymphocytes (%) (Auto) 23.1% Monocytes (%) (Auto) 7.5% Eosinophils (%) (Auto) 1.1% Basophils (%) (Auto) 0.2% Absolute Immature Granulocyte (auto 0.03T/MM3 Absolute Neutrophils (auto) 7.0T/MM3 Absolute Lymphocytes (auto) 2.4T/MM3 Absolute Monocytes (auto) 0.8T/MM3 Absolute Eosinophils (auto) 0.1T/MM3 Absolute Basophils (auto) 0.0T/MM3 Turbidity < 20 Sodium Level 145MEQ/L Potassium Level 3.5MEQ/L Chloride Level 105MEQ/L Carbon Dioxide Level 30MEQ/L Anion Gap 10MEQ/L Blood Urea Nitrogen 12.0MG/DL Creatinine 0.6MG/DL Glomerular Filtration Rate Calc 102 BUN/Creatinine Ratio 20RATIO Glucose Level 96MG/DL Calculated Osmolality 279MOSM/KG Calcium Level 9.1MG/DL Icterus Index < 2 Chemistry Specimen Hemolysis 16 Assessment and Plan (1) Depression Qualifiers: (2) Acute encephalopathy Assessment: improving (3) Opioid overdose (4) Narcotic dependence (5) Hypothyroidism (6) Seizure (7) HTN (hypertension) (8) HLD (hyperlipidemia) Will obtain further collateral history from patient's Ramu ([phone] ). Patient is adamantly denying this was a suicide attempt but admits to poorly- controlled depression. I believe her encephalopathy is clearing overall but she does likely still have some changes in cognition given her education level and SLUMS score. Patient feels that she needs physical rehab upon medical discharge. Discharge planning will likely depend on report from , medical plan and how to best create a safe discharge plan for patient. Will definitely recommend outpatient f/u for med management as well as weekly therapy appointments with established therapist. Will continue to follow. REBEKA WILLIS MD Aug 28, 2016 08:56
[2016-08-28] MEDS: OXYCODONE I.R. 5 MG TABLET PO PRN (17:42)
--- NOTE | 2016-08-28 18:03 | NUR ---
PT GIVEN PRN BRICE FOR PAIN 5/10 IN BACK
[2016-08-28] MEDS: DULOXETINE 30 MG CAPSULE PO SCH (21:04)
[2016-08-28] MEDS: BACLOFEN 20 MG TABLET PO SCH (21:04)
[2016-08-29] VITALS (8 sets, daily range): BP systolic 126–188; BP diastolic 72–96; PULSE 69–103; RESP 20; TEMP 96.3–99.4; O2SAT 91–97
[2016-08-29] MEDS: HEPARIN SUB-Q 5,000 unit/0.5ml vial SQ SCH ×3 (00:31→17:45)
[2016-08-29] MEDS: BACLOFEN 10 MG TABLET PO PRN ×3 (02:04→21:32)
[2016-08-29] MEDS: LORAZEPAM 2 MG/ML INJECTION IV PRN ×4 (02:11→21:58)
[2016-08-29] MEDS: OXYCODONE I.R. 5 MG TABLET PO PRN ×2 (05:28→13:48)
[2016-08-29] MEDS: LEVOTHYROXINE 50 MCG TABLET PO SCH (05:28)
[2016-08-29] MEDS: PANTOPRAZOLE 40 MG TABLET PO SCH (05:28)
--- NOTE | 2016-08-29 05:33 | NUR ---
SHIFT SUMMARY PT IS ORIENTED AND ALERT. PT CALLS TO USE THE BSC. PT HAS DIFFICULT TIME STANDING UP FROM THE BED. WHEN ENCOURAGED TO PUSH UP FROM THE BED AND NOT TO PULL ON THE WALKER. PT STATE SHE WAS TOLD TO DO IT THIS WAY. THE SECOND TIME SHE WANTED TO USE THE BSC PT FALL BACK ON TO HER BED. OFFER BEDPAN FOR SAFETY, PT SAID OK. WHEN REINFORCING ROD LAYER WENT IN TO ANSWER PT'S LIGHT, PT REQUEST TO USE THE BSC AND REFUSED THE BEDPAN. PT ASKED FOR BACLOFEN 10 MG AT 0204. WHEN GIVING BACLOFEN PT ASKED FOR ATIVAN LESSER DOSE GIVEN 0.5 MG. HYDRALAZINE 20 MG WAS GIVEN FOR INCREASED B/P. AT 0528 PT ASKED FOR PAIN MEDICATION, BRICE 20 MG WAS GIVEN 11/19. CALL LIGHT WITHIN REACH. BED ALARM ON.
[2016-08-29 06:27] LABS: ALBUMIN/GLOBULIN RATIO 1.3 RATIO (1.1-2.2); ALKALINE PHOSPHATASE 140 U/L (38-126); ALT (SGPT) 31 U/L (9-52); ANION GAP 11 MEQ/L (5-15); AST (SGOT) 28 U/L (14-36); BUN/CREATININE RATIO 17 RATIO (6-26); CALCIUM 9.4 MG/DL (8.4-10.2); CHLORIDE 103 MEQ/L (98-107); CO2 - CARBON DIOXIDE 30 MEQ/L (22-30); CREATININE 0.6 MG/DL (0.7-1.2); GLOMERULAR FILTRATION RATE 102; GLUCOSE 101 MG/DL (65-110); POTASSIUM 3.7 MEQ/L (3.6-5); SODIUM 144 MEQ/L (134-144)
[2016-08-29] MEDS: OXYCODONE 10 MG PO SCH ×2 (09:14→21:44)
[2016-08-29] MEDS: POLYETHYL.GLYCOL 3350 PACKET 17gm PO SCH ×2 (09:14→21:00)
[2016-08-29] MEDS: LEVETIRACETAM 250 MG TABLET PO SCH ×2 (09:15→21:31)
[2016-08-29] MEDS: DULOXETINE 60 MG CAPSULE PO SCH (09:15)
[2016-08-29] MEDS: AMLODIPINE 5 MG TABLET PO SCH (09:15)
[2016-08-29] MEDS: LOSARTAN 50 MG TABLET PO SCH (09:16)
--- NOTE | 2016-08-29 10:26 | NUR ---
PRN MED PT STATED "I FEEL SO ANXIOUS, CAN I HAVE SOME ATIVAN". ATIVAN WAS GIVEN TO PT CHARTED.
[2016-08-29] MEDS: LEVETIRACETAM 500 MG TABLET PO SCH ×2 (11:33→21:31)
--- NOTE | 2016-08-29 11:48 | NUR ---
Follow up This SALES CONTRACTOR spoke with materials planner surrounding safe and appropriate discharge per psychiatric consultation with patient and spouse. [facility] is recommended. Fitter/Welder agreed to speak with patient surrounding recommendations. SALES CONTRACTOR will continue to follow and assist as needed.
--- NOTE | 2016-08-29 13:48 | NUR ---
PAIN/SPASMS PRN'S GIVEN FOR LEG SPASMS AND BACK PAIN.
--- NOTE | 2016-08-29 15:47 | NUR ---
CM SPOKE WITH PT, RE: DC PLAN. EXPLAINED SHE WAS NOT ABLE TO TRANSFER TO IRU. OFFERED TO LOCATE A SNU VS. HOME WITH HOME HEALTH. SHE SAID SHE WOULD RATHER GO HOME WITH HOME HEALTH AND NOT GO TO A SNU. SHE WAS AGREEABLE TO HAVING THE HOME HEALTH SHE HAD IN THE PAST. DISCUSSED RECOMMENDATION OF OUTPT PARTIAL HOSPITALIZATION AT . SHE WAS AGREEABLE TO THIS. THIS WORKER CALLED PAT AT , RECEIVED SOME INFORMATION, AND PASSED THIS ON TO THE PT. THE PT STATED SHE WANTED THIS WORKER TO SET THIS UP FOR HER.
--- NOTE | 2016-08-29 17:03 | NUR ---
CM LEFT MESSAGE WITH MARIAH FERGUSON WITH [facility], TO SET UP SERVICES. FROM PRIOR VISIT, PT HAD [facility]. THIS WILL BE STARTED UP AGAIN AT TIME OF DC. (PT STATED HER HOME HEALTH BENEFIT SHOULD HAVE RENEWED BY [facility]. THIS WORKER WILL VERIFY THIS).
[2016-08-29] MEDS: BETHANECHOL 25 MG TABLET PO SCH ×2 (17:44→21:32)
[2016-08-29] MEDS: BETHANECHOL 10 MG TABLET PO SCH ×2 (17:44→21:32)
--- NOTE | 2016-08-29 19:28 | NUR ---
SHIFT SUMMARY PT ALERT AND ORIENTED X3. PT HAS BEEN ON RA O2. NEW IV SITE IN THE RIGHT HAND IS IN PLACE. PT HAS BEEN COOPERATIVE WITH TREATMENTS AND CARE. PRN ATIVAN WAS GIVEN DURING THIS SHIFT PT REPORTED ANXIETY. PT GETS UP WITH X1-2 ASSIST.
[2016-08-29 20:33] LABS: BLOOD, URINE 3+ (NEGATIVE); COLOR,URINE YELLOW (YELLOW); LEUKOCYTE ESTERASE ,URINE 3+ (NEGATIVE); NITRITE,URINE POSITIVE (NEGATIVE); UROBILINOGEN,URINE 0.2 EU/DL (NORMAL)
[2016-08-29 20:34] LABS: WBC CLUMPS,URINE MANY
[2016-08-29 20:35] LABS: BACTERIA,URINE 1+ (NEGATIVE); WBC,URINE TNTC /HPF (0-5)
--- NOTE | 2016-08-29 21:23 | PNPDOC ---
Subjective Date DATE: 08/29/16 TIME: 21:09 Subjective Prema again reports that she feels better and more "clearheaded". She is ambulating better today by her report although still has difficulty getting up from a chair or standing up from the bed. She complains of pain in her back- unchanged from baseline. She denied headache, nausea, constipation, palpitations , lightheadedness, or dyspnea. Her was not present today. She indicated reluctance to consider [facility]. Nursing notes indicate frequent requests for Ativan for anxiety. Patient notes she is not sleeping well which she thinks is triggering increased anxiety. Objective Vital Signs Vital signs Vital Signs Date Time Temp Pulse Resp B/P Pulse Ox O2 Delivery O2 Flow Rate FiO2 08/29/16 20:00 99.4 103 20 150/85 94 Room Air 08/28/16 19:28 1.00 NAD, alert, fluent speech Conjugate gaze, EOMI, conjunctiva clear, sclera anicteric Respirations nonlabored, good airflow, breath sounds clear anteriorly/ posteriorly Regular rhythm, S1-S2 Abdomen is soft, nontender, obese, bowel sounds present +1 edema bilateral lower extremities Shins hypersensitive to touch, no tremors upper extremities but occasional myoclonic jerks noted lower extremities Calm, cooperative, no push of speech Telemetry Rhythm: Sinus Rhythm Height (Feet): 5 Height (Inches): 6.00 Weight (Kilograms): 110.200 Laboratory Laboratory Laboratory Tests 08/28/16 04:24 08/29/16 05:35 Laboratory Tests 08/28/16 04:24 Microbiology Microbiology Microbiology Date/Time Source Procedure Growth Status 08/29/16 20:35 Urine, Voided-Not Cc-Midstream Urine Culture - Preliminary CULTURE INITIATED - RESULTS PENDING Resulted Assessment & Plan Assessment Acute encephalopathy/altered level of consciousness-present on admission Hypertension, uncontrolled Hypokalemia Possible drug overdose Failed back syndrome with chronic pain Generalized seizure-present on admission, history seizure disorder History of polysubstance abuse Depression Hypernatremia-resolved Possible right apical mass-not evident on repeat chest x-ray Pyuria/history recurrent UTI Neurologically stable, no reported seizures overnight again. Continue Keppra 750 mg twice a day Ongoing pain control issues and muscle spasms. Home regimen resumed. Resume Seroquel for sleep-discussed with psychiatry. Blood pressure improving, monitor overnight but may require increased dose Cozaar at discharge Potassium normalized. Nursing reported cloudy urine, UA obtained with positive nitrites, +3 leukocyte esterase, and numerous WBCs with coughing. Urine culture pending; treatment with cephalexin empirically initiated. Discussed with case management-patient not eligible for IRU, patient has agreed to day hospital at tentatively being coordinated to start Saturday. Anticipate discharge home with home health tomorrow. Plan/Intensity of Service Discussed with Dr. Dill, case management, and nursing; laboratory data reviewed. Code Status Full Code Hospital Course Summary Disclaimer The hospital course summary below is not to be considered part of the above Progress Note. Hospital Course Summary 08/26/16 Patient found unresponsive at home with depressed respiratory drive. Narcan administered and later readministered with improvement. Admitted to the intensive care unit with suspected drug overdose; urine drug screen positive for oxycodone and amphetamines. Seizure shortly after admitted to ICU-IV Keppra given, oral Keppra resumed later in the day. Patient remains confused but is awake, perseverating. Oral narcotics on hold, baclofen on hold. Dr. Jacobson and psychiatry to be consulted. Suggestion of right upper lobe mass on chest x-ray, don't to be repeated for clarification. May require CT imaging. 08/27/16 Neurological status significantly improved today; muscle spasms and pain described overnight with confusion but all symptoms improved this morning. There was question of "posturing" but no discrete seizure activity reported overnight and even the posturing is not described in nursing notes. Blood pressure is persistently elevated. Patient not on antihypertensives at home and reports that blood pressures have been well controlled in recent office visits. PRES questioned on MRI and clinical scenario with encephalopathy, seizure, and hypertension consistent with the same. Amlodipine initiated yesterday, pressures remain high and she's required several doses of hydralazine for control. Lisinopril to be initiated today and will require titration. Psychiatric consultation requested following discussion with patient's yesterday. Her dose increased to 750 mg twice a day following discussion with Dr. Jacobson earlier today. Resume baclofen and oxy-IR for pain. Potassium supplemented orally, recheck in a.m. Chest x-ray without evidence of apical mass. 08/28/16 Neurological improved, no reported seizures overnight. Continue Keppra 750 mg twice a day Ongoing pain control issues and muscle spasms. Home regimen resumed and IV narcotics discontinued. Home dosage oral baclofen available. Evaluated by Dr. Dill, recommendations pending. Persistent depressive symptoms per Dr. Dill, may benefit from inpatient or day Hospital psychiatric care. Blood pressure improving but remains moderately elevated. Continue dual medications but will switch from lisinopril to ARB per patient request. PT/OT consults; IRU evaluation. Potassium supplemented further today. Stable to transfer out of ICU at this time. 08/29/16 Neurologically stable, no reported seizures overnight again. Continue Keppra 750 mg twice a day Ongoing pain control issues and muscle spasms. Home regimen resumed. Resume Seroquel for sleep-discussed with psychiatry. Blood pressure improving, monitor overnight but may require increased dose Cozaar at discharge Potassium normalized. Nursing reported cloudy urine, UA obtained with positive nitrites, +3 leukocyte esterase, and numerous WBCs with coughing. Urine culture pending; treatment with cephalexin empirically initiated. Discussed with case management-patient not eligible for IRU, patient has agreed to day hospital at tentatively being coordinated to start Saturday. Anticipate discharge home with home health tomorrow. NAVID ISRAEL MD Aug 29, 2016 21:13
[2016-08-29] MEDS: DULOXETINE 30 MG CAPSULE PO SCH (21:32)
[2016-08-29] MEDS: BACLOFEN 20 MG TABLET PO SCH (21:33)
[2016-08-29] MEDS ORDERED: QUETIAPINE 50 MG TABLET PO SCH (22:00)
[2016-08-30 00:40] VITALS: BP 112/67; PULSE 104; RESP 22; TEMP 97.9; O2SAT 93
[2016-08-30] MEDS: HEPARIN SUB-Q 5,000 unit/0.5ml vial SQ SCH ×2 (01:00→09:08)
[2016-08-30 04:59] VITALS: BP 133/75; PULSE 105; RESP 20; TEMP 97.8; O2SAT 92
--- NOTE | 2016-08-30 05:05 | NUR ---
STatus 2 x person assist to BSC, pt very unsteady in the mornings. Slept well, no changes.
[2016-08-30] MEDS: LORAZEPAM 2 MG/ML INJECTION IV PRN ×3 (05:14→13:39)
[2016-08-30] MEDS: OXYCODONE I.R. 5 MG TABLET PO PRN (05:15)
[2016-08-30] MEDS: PANTOPRAZOLE 40 MG TABLET PO SCH (05:15)
[2016-08-30] MEDS: LEVOTHYROXINE 50 MCG TABLET PO SCH (05:15)
[2016-08-30] MEDS: BETHANECHOL 25 MG TABLET PO SCH ×2 (05:17→11:29)
[2016-08-30] MEDS: BETHANECHOL 10 MG TABLET PO SCH ×2 (05:17→11:29)
[2016-08-30 08:29] VITALS: BP 115/67; PULSE 90; RESP 18; TEMP 97.6; O2SAT 93
[2016-08-30 08:55] VITALS: PULSE 90
[2016-08-30] MEDS: POLYETHYL.GLYCOL 3350 PACKET 17gm PO SCH (09:00)
[2016-08-30] MEDS ORDERED: CEPHALEXIN 500 MG CAPSULE PO SCH (09:00)
[2016-08-30] MEDS: DULOXETINE 60 MG CAPSULE PO SCH (09:09)
[2016-08-30] MEDS: LOSARTAN 50 MG TABLET PO SCH (09:09)
[2016-08-30] MEDS: AMLODIPINE 5 MG TABLET PO SCH (09:10)
[2016-08-30] MEDS: OXYCODONE 10 MG PO SCH (09:11)
[2016-08-30] MEDS: LEVETIRACETAM 250 MG TABLET PO SCH (09:11)
[2016-08-30] MEDS: LEVETIRACETAM 500 MG TABLET PO SCH (09:11)
--- NOTE | 2016-08-30 09:26 | NUR ---
MEDICATIONS PT REFUSED TO TAKE MIRALAX AT THIS TIME BECAUSE SHE WANTS TO TAKE IT AT NIGHT. PRN ATIVAN WAS GIVEN PT REQUESTED FOR ANXIETY.
--- NOTE | 2016-08-30 09:39 | NUR ---
[facility]ANN[facility] CALLED [facility]; SPOKE WITH MARIAH. SHE SAID THIS WORKER NEEDS TO SPEAK WITH ONE OF THEIR DOCTORS TO DO THE INTAKE AND SEE IF PT WILL QUALIFY. DOCTORS ARE IN A MEETING; THIS WORKER NEEDS TO CALL BACK LATER. CALLED [facility], SPOKE WITH LENORE; ASKED IF PT CAN RECEIVE HOME HEALTH AND GO TO [facility]. LENORE SAID THEY WILL NEED TO INVESTIGATE THIS AND WILL CALL THIS WORKER BACK.
--- NOTE | 2016-08-30 10:04 | PDWOUND ---
Wound Documentation Wound Management Wound : Location Modifier: Right, Anterior Wound Location: Foot Wound Type: Other (Diabetic Foot Ulcer) Wound Dressing Frequency: two times per week Wound Duration: > one month Wound Dressing Status: FOUND: Moist Wound Drainage Amount: Moderate Wound Drainage Description: Serosanguineous Wound Drainage Odor: None/Absent Wound General Appearance: FOUND Draining, FOUND Unapproximated Wound Bed: gran red, slough Periwound Description: Clear, indurated Wound Length (cm): 2 Wound Width (cm): 3.4 Wound Depth (cm): 0.2 Exposed: partial Wound Cleanser: soap and water Wound Primary Dressing Type: Aquacel AG, Mepilex Comments Reassessed wound on right dorsal aspect of foot. At this time wound cleaned, hydrafera blue applied to wound bed and cut smaller than wound area. Covered with Mepilex, wrapped in roll gauze. Pt tolerated well. TAYLOR KINGSTON RN Aug 30, 2016 10:04
[2016-08-30 12:11] VITALS: BP 117/74; PULSE 90; RESP 18; TEMP 98.7; O2SAT 93
[2016-08-30] MEDS ORDERED: BETH10TA PO (13:09)
[2016-08-30] MEDS ORDERED: AMOX-351 PO (13:09)
[2016-08-30] MEDS ORDERED: LOSA50TA52 PO (13:09)
[2016-08-30] MEDS ORDERED: [UNRECOGNIZED DRUG - CODE] PO (13:09)
--- NOTE | 2016-08-30 13:21 | DSPDOC ---
General Date Date DATE: 08/30/16 TIME: 13:16 Attending Physician Kelsie Kilpatrick MD Admitting Physician Kelsie Kilpatrick MD Consulting Physician Isela Jacobson MD, Evelyn Dill MD Admitting Diagnosis Altered LOC, possible overdose Discharge Diagnosis Acute encephalopathy/altered level of consciousness Probable drug overdose, narcan responsive Hypertension, uncontrolled Generalized seizure-present on admission, history seizure disorder UTI Hypokalemia Failed back syndrome with chronic pain History of polysubstance abuse Depression Hypernatremia-resolved Possible right apical mass-not evident on repeat chest x-ray Laboratory Laboratory Tests Test 08/29/16 05:35 08/29/16 20:26 Turbidity < 20 (0-20) Sodium Level 144MEQ/L (134-144) Potassium Level 3.7MEQ/L (3.6-5) Chloride Level 103MEQ/L (98-107) Carbon Dioxide Level 30MEQ/L (22-30) Anion Gap 11MEQ/L (5-15) Blood Urea Nitrogen 10.0MG/DL (7-17) Creatinine 0.6MG/DL (0.7-1.2) Glomerular Filtration Rate Calc 102 BUN/Creatinine Ratio 17RATIO (6-26) Glucose Level 101MG/DL (65-110) Calculated Osmolality 276MOSM/KG (261-280) Calcium Level 9.4MG/DL (8.4-10.2) Total Bilirubin 0.80MG/DL (0.20-1.30) Icterus Index < 2 (0-7) Aspartate Amino Transf (AST/SGOT) 28U/L (14-36) Alanine Aminotransferase (ALT/SGPT) 31U/L (9-52) Alkaline Phosphatase 140U/L (38-126) Total Protein 7.0G/DL (6.3-8.2) Albumin 4.0G/DL (3.5-5.0) Globulin 3.0G/DL (2.4-3.6) Albumin/Globulin Ratio 1.3RATIO (1.1-2.2) Chemistry Specimen Hemolysis < 15 (0-25) Urine Collection Type Voided-not cc-midstr Urine Color Yellow (YELLOW) Urine Turbidity Turbid (CLEAR) Urine pH 6.5 (5.0-8.0) Urine Specific [place] 1.020 (1.015-1.025) Urine Protein 3+ (NEGATIVE) Urine Glucose (UA) Negative (NEGATIVE) Urine Ketones Negative (NEGATIVE) Urine Blood 3+ (NEGATIVE) Urine Nitrite Positive (NEGATIVE) Urine Bilirubin Negative (NEGATIVE) Urine Urobilinogen 0.2EU/DL (NORMAL) Urine Leukocyte Esterase 3+ (NEGATIVE) Urine RBC 10-20/HPF (0-3) Urine WBC Tntc/HPF (0-5) Urine WBC Clumps Many Urine Squamous Epithelial Cells 5-10 Urine Bacteria 1+ (NEGATIVE) Urine Culture Indicated Cult reflexed &setup White count on admission 11.3 with hemoglobin 15.1 and platelet count 212. Blood gas on admission 7.43/46/84/31 with saturation 97% on 10 L mask Admission chemistries notable only for sodium of 146 and minor increase in alkaline phosphatase at 159 Urine drug screen positive for oxycodone and amphetamines, acetaminophen and alcohol undetectable Microbiology Microbiology Date/Time Source Procedure Growth Status 08/29/16 20:35 Urine, Voided-Not Cc-Midstream Urine Culture - Preliminary >100,000 Gram Negative Jose E Resulted Radiology Non-contrast CT head on admisssion - No acute intracranial abnormality or hemorrhage. pCXR on admission question of asymmetric density in the medial right apex. Repeat PA and lateral chest x-ray on 08/27 did not confirm an abnormality at this location. Bibasilar atelectasis was reported on follow-up film. MRI of the brain with and without contrast on 08/27-. Deep/subcortical white matter changes possibly secondary to chronic small vessel ischemia which is progressed when compared with 2010. Given the patient's seizure history, interval change in MRI appearance, and the predominantly posterior location, posterior reversible encephalopathy (PRES) is also a consideration. There is no restricted diffusion to suggest acute or recent infarct. There are no abnormal areas of enhancement within the brain parenchyma History of Present Illness This is a 60-year-old patient with a history of chronic pain syndrome from a failed back syndrome. The patient has had previous admissions for altered mental status resulting at times the need for intubation. Last admission appears to be February of last year. Patient was seen this morning by her as he was going to work at 8:00. The special educator came to the home at 1 PM and noted the patient was less responsive. The arrived home this afternoon and found her essentially unresponsive. EMS was activated. Patient was treated with Narcan and route. Patients mental status did improve. But then became more somnolent. In the emergency department patient was given an additional dose of Narcan. Workup in the emergency department is reassuring and in the emergency department the patient would respond to questions and did not demonstrate significant hypercapnic symptoms. The patients urine drug screen is positive for amphetamines and oxycodone. This could be consistent with medicines that she is prescribed. The patient had a CT of the head performed which was unremarkable. The patient at this time is to be admitted to the ICU for monitoring of unknown ingestion resulting in altered mental status. It should be noted that this admission is almost identical to her previous admission in February. Except the patient does not have to be intubated this time. The patients archives are managed in a time locked device that the manages. The is adamant that the patient is not overtaken her medicines that she has access to. The patient apparently has a history of seizures and is on oral Keppra. This was not indicated in previous old records. Note that the is currently not available for review. Hospital Course Acute encephalopathy/altered level of consciousness Probable drug overdose, narcan responsive Hypertension, uncontrolled Generalized seizure-present on admission, history seizure disorder UTI Hypokalemia Failed back syndrome with chronic pain History of polysubstance abuse Depression Hypernatremia-resolved Possible right apical mass-not evident on repeat chest x-ray 08/26/16 Patient found unresponsive at home with depressed respiratory drive. Narcan administered and later readministered with improvement. Briefly treated with narcan drip for stabilization. Admitted to the intensive care unit with suspected drug overdose; urine drug screen positive for oxycodone and amphetamines. Seizure shortly after admitted to ICU-IV Keppra given, oral Keppra resumed later in the day. Patient remains confused but is awake, perseverating. Oral narcotics on hold, baclofen on hold. Dr. Jacobson and psychiatry to be consulted. Suggestion of right upper lobe mass on chest x-ray, to be repeated for clarification. May require CT imaging. 08/27/16 Neurological status significantly improved today; muscle spasms and pain described overnight with confusion but all symptoms improved this morning. There was question of "posturing" but no discrete seizure activity reported overnight and even the posturing is not described in nursing notes. Blood pressure is persistently elevated. Patient not on antihypertensives at home and reports that blood pressures have been well controlled in recent office visits. PRES questioned on MRI and clinical scenario with encephalopathy, seizure, and hypertension consistent with the same. Amlodipine initiated yesterday, pressures remain high and she's required several doses of hydralazine for control. Lisinopril to be initiated today and will require titration. Psychiatric consultation requested following discussion with patient's yesterday. Her dose increased to 750 mg twice a day following discussion with Dr. Jacobson earlier today. Resume baclofen and oxy-IR for pain. Potassium supplemented orally, recheck in a.m. Chest x-ray without evidence of apical mass. 08/28/16 Neurological improved, no reported seizures overnight. Continue Keppra 750 mg twice a day Ongoing pain control issues and muscle spasms. Home regimen resumed and IV narcotics discontinued. Home dosage oral baclofen available. Evaluated by Dr. Dill, recommendations pending. Persistent depressive symptoms per Dr. Dill, may benefit from inpatient or day Hospital psychiatric care. Blood pressure improving but remains moderately elevated. Continue dual medications but will switch from lisinopril to ARB per patient request. PT/OT consults; IRU evaluation. Potassium supplemented further today. Stable to transfer out of ICU at this time. 08/29/16 Neurologically stable, no reported seizures overnight again. Continue Keppra 750 mg twice a day Ongoing pain control issues and muscle spasms. Home regimen resumed. Resume Seroquel for sleep-discussed with psychiatry. Blood pressure improving, monitor overnight but may require increased dose Cozaar at discharge Potassium normalized. Nursing reported cloudy urine, UA obtained with positive nitrites, +3 leukocyte esterase, and numerous WBCs with coughing. Urine culture pending; treatment with cephalexin empirically initiated. Discussed with case management-patient not eligible for IRU, patient has agreed to day hospital at tentatively being coordinated to start Saturday. Anticipate discharge home with home health tomorrow. 08/30/16 Prema expresses disappointment that she was not accepted to IRU. She indicated that family members will be available intermittently over the weekend to help her at home and that she wishes to delay initiating care at [place] until next week (subsequently learned patient could not have both home health and outpatient partial day care at [place]-patient is up to to proceed with home health PT as more urgent need, agreeable; patient will follow up with her private counselor at [place] on Monday 09/04 was). She complains of dysuria and urinary frequency today and reports that she gets a urinary tract infection every time she has a catheter. She denied lightheadedness and reports her appetite is good. Examination reveals patient to be alert and cooperative with fluent speech. Respirations are nonlabored with good airflow. Abdomen is benign without suprapubic tenderness. Urinalysis confirmed UTI, culture has gram-negative rods on initial report. Antibiotic converted from cephalexin to Augmentin per patient request-dose to be given now. Stable for discharge at this time, home health being resumed with prior orders. Discussed with Dr. Jacobson. Dr. Cronin updated on hospitalization and medication changes. Medications reviewed with patient in detail including need to discontinue phentermine. When reviewing medications it was learned that Prema had not been taking Keppra prior to admission as previously believed, subsequently Keppra dose reduced to 500 mg bid at discharge as "new treatment" rather than increased dose. Initial cause of encephalopathy likely multifactorial but was clearly Narcan responsive suggesting opiate overdose at least partially and play. Significant hypertensive response present over ensuing days, preceding blood pressure is unclear. Advise close monitoring of blood pressures at discharge. >30 minutes spent on patient care and discharge care coordination today on the date of discharge. -- Problems: Code Status Full Code Home Meds Active Scripts Levetiracetam (Levetiracetam) 500 Mg Tablet, 1 TAB PO BID, #60 TAB 0 Refills Prov:KELSIE KILPATRICK MD 08/30/16 Losartan Potassium (Losartan Potassium) 50 Mg Tablet, 50 MG PO DAILY for HYPERTENSION, #30 TAB Prov:KELSIE KILPATRICK MD 08/30/16 Bethanechol Chloride (Bethanechol Chloride) 10 Mg Tablet, 1 TAB PO ACHS for 30 Days, #120 TAB BEST ON EMPTY STOMACH Prov:KELSIE KILPATRICK MD 08/30/16 Amoxicillin/Potassium Clav (Augmentin 875-125 Tablet) 1 Each Tablet, 1 TAB PO BID for 5 Days, #10 TAB TAKE WITH MEALS Prov:KELSIE KILPATRICK MD 08/30/16 Amlodipine Besylate (Amlodipine Besylate) 5 Mg Tablet, 5 MG PO DAILY, #30 TAB Prov:MEGAN CRONIN DO 03/07/16 Reported Medications Indomethacin (Indomethacin) 50 Mg Capsule, 50 MG PO TID Y for PRN ORDERS 08/26/16 Baclofen (Baclofen) 10 Mg Tablet, 10 MG PO Q2-3H Y for SPASMS DO NOT EXCEED 8 TABLETS IN 24 HOURS 08/26/16 Bethanechol Chloride (Bethanechol Chloride) 25 Mg Tablet, 25 MG PO QID 08/26/16 Quetiapine Fumarate (Quetiapine Fumarate) 300 Mg Tablet, 150 MG PO HS 08/25/16 Ipratropium/Albuterol Sulfate (Iprat-Albut 0.5-3(2.5) mg/3 ml) 3 Ml Ampul.neb, 1 VIAL AEROSOL Q2H Y for PRN ORDERS 03/07/16 Dextran 70/Hypromellose (Artificial Tears) 1 Each Droperette, 1 DROP BOTH EYES PRN 03/07/16 Polyethylene Glycol 3350 (Miralax) 17 Gm Powd.pack, 17 GM PO DAILY Y for CONSTIPATION 03/07/16 Pantoprazole Sodium (Pantoprazole Sodium) 40 Mg Tablet.dr, 40 MG PO ACB, TAB Take 1 tablet, by mouth, daily before breakfast. 03/07/16 Duloxetine HCl (Cymbalta) 30 Mg Capsule, 1 CAP PO HS, CAP 03/02/16 Duloxetine HCl (Cymbalta) 60 Mg Capsule.dr, 1 CAP PO DAILY, CAP 03/02/16 Oxycodone HCl (Oxycodone HCl) 20 Mg Tablet, 20 MG PO Q4H Y for PAIN 03/02/16 Oxycodone HCl (Oxycontin) 10 Mg Tab.er.12h, 10 MG PO BID 03/02/16 Levothyroxine Sodium (Levothyroxine Sodium) 50 Mcg Tablet, 50 MCG PO ACB 10/25/15 Discontinued Reported Medications Phentermine HCl (Phentermine HCl) 37.5 Mg Tablet, 37.5 MG PO DAILY 08/26/16 Face to Face Encounter I met with patient on the day of dismissal and discussed follow up appointments , medications, and safety plan. Discharge Disposition home Copies To 1: SLECHTA,MEGAN B DO Documentation Requirements Alt. Mental Status/Confusion Check if condition above is: Acute KELSIE KILPATRICK MD Aug 30, 2016 13:21
[2016-08-30] MEDS ORDERED: AMOXICILLIN/CLAVULANATE 875 MG/125 MG TABLET PO SCH (13:30)
--- NOTE | 2016-08-30 13:39 | NUR ---
CM ONGOING DC PLANNING WITH PT. THIS WORKER HAS SPOKEN WITH PAT AT PARTIAL DAY PROGRAM. WITH PT'S PERMISSION, THIS WORKER FAXED RECORDS TO HER. PAT STATED PT WOULD NEED TO START TOMORROW OR ELSE THE AUTHORIZATION WOULD . SHE SAID IF PT WANTS TO START NEXT WEEK, THEN PT WILL NEED TO FOLLOW UP WITH HER PV COUNSELOR (PEDRO), AND PEDRO WOULD REQUEST THE REFERRAL FOR HER. THIS WORKER SPOKE WITH PT ABOUT THIS. PT STATED SHE WANTS TO START ON SATURDAY SINCE HER IS GOING TO BE OUT OF TOWN TOMORROW THROUGH SATURDAY. SHE SAID SHE CHOSES TO FOLLOW UP WITH PEDRO NEXT WEEK TO START THE DAY PROGRAM. THIS WORKER RELAYED THIS TO PAT. THIS WORKER SPOKE WITH PT MORE ABOUT DC PLANNING. SHE FIRST SAID SHE DID NOT FEEL COMFORTABLE RETURNING HOME BECAUSE SHE FEELS WEAK. THIS WORKER REVIEWED THE OPTION OF A SNU STAY, AND OFFERED TO MAKE REFERRALS TO SNU'S IF SHE WOULD FEEL MORE COMFORTABLE WITH THAT. SHE SAID NO, LET HER CALL HER ABOUT THIS FIRST. LATER, THIS WORKER FOLLOWED UP WITH HER ABOUT WHAT SHE WANTED HER DC PLAN TO BE. SHE SAID SHE AND HER FEEL GOOD ABOUT HER JUST RETURNING HOME WITH HOME HEALTH. SHE SAID HER TOOK THE DAY OFF TODAY TO PICK HER UP AND BE WITH HER. THEN WHEN HE LEAVES TOMORROW THROUGH SATURDAY, HER CHILDREN WILL BE COMING OVER TO HELP NEEDED. SHE SAID SHE FEELS COMFORTABLE WITH THAT. CALL RECEIVED FROM COUNSELOR PEDRO. SHE SAID PT WILL NEED TO SEE HER (TO START THE INSURANCE AUTH) PRIOR TO STARTING THE DAY PROGRAM. THIS WORKER WENT TO PT'S ROOM WHILE ON THE PHONE WITH PEDRO, AND SCHEDULED A TIME FOR PT TO COME IN TO SEE PEDRO ON SATURDAY AT 10 AM. Addendum: 08/30/16 at 1352 by MISAEL GILLESPIE Amended: Links added.
[2016-08-30] MEDS ORDERED: LEVE500T26 PO (14:22)
--- NOTE | 2016-08-30 15:10 | NUR ---
STATUS/ DISMISSAL PT UP TO THE CHAIR FOR MOST OF THE DAY. ALERT AND ORIENTED X3. CALLS FOR NEEDS. ATIVAN GIVEN REQUESTED FOR ANXIETY. DISCHARGE INSTRUCTIONS GIVEN TO PT AND . PT'S NARCOTICS OBTAINED BY FROM PHARMACY. OTHER MEDS GIVEN TO AT DISCHARGE TIME. PT LEFT THE UNIT PER WHEELCHAIR WITH STAFF MEMBER. PRESCRIPTIONS X3 CALL IN TO [facility]. BELONGS PACKED AND SENT IT WITH PT.
--- NOTE | 2016-08-30 15:28 | NUR ---
BENNETT FAXED HOME HEALTH ORDERS TO [facility]. CALLED LENORE WITH [facility]. SHE SAID SHE CHECKED PT'S INSURANCE AND PT WOULD NOT BE ALLOWED TO RECEIVE HOME HEALTH AND GO TO OUTPT PARTIAL DAY PROGRAM. THIS WORKER WENT TO PT'S ROOM WITH [facility] ON THE PHONE; PT AND HER WERE PRESENT. THIS WORKER UPDATED THEM AND ASKED WHAT THEY WANTED TO DO. PT STATED SEVERAL TIMES THAT THE PHYSICAL THERAPY WAS MOST IMPORTANT THING TO HER AT THIS TIME, SO SHE WANTED HOME HEALTH. HER AGREED THAT PT COULD HAVE HOME HEALTH AND THEN DO THE DAY PROGRAM LATER. THIS WAS RELAYED TO [facility]. SHE SAID SHE WILL START SERVICES WITH PT TOMORROW, THEN. THIS WORKER THEN SPOKE WITH PT ABOUT KEEPING HER APPOINTMENT WITH PEDRO AT . SHE WAS AGREEABLE AND HER WAS, TOO. CALLED PEDRO AT ; UPDATED HER ON THE ABOVE. SHE SAID SHE WILL STILL SEE PT ON AT [address]. CALLED DR[address] REAGAN AND UPDATED HER ON THE ABOVE.
--- NOTE | 2016-08-30 20:31 | GENPN ---
[facility] Subjective Date DATE: 08/30/16 TIME: 20:26 Subjective/Severity of Illness Medications Current Medications Medications (Trade) Dose Ordered Sig/Janis Start Time Stop Time Status Last Admin Dose Admin Sodium Chloride (Normal Saline IV) 1,000 ml @ 100 mls/hr Q10H 08/25/16 19:36 08/26/16 20:16 DC 08/26/16 08:04 100 MLS/HR Heparin Sodium (Porcine) (Heparin Sub-Q) 5,000 unit Q8HR 08/26/16 01:00 08/30/16 16:04 DC 08/30/16 09:08 5,000 UNIT Ondansetron HCl (Zofran) 4 mg Q6H PRN 08/25/16 19:45 08/30/16 16:04 DC Albuterol/ Ipratropium (Duoneb) 3 ml Q2H PRN 08/25/16 19:45 08/30/16 16:04 DC Naloxone HCl (Narcan) 0.4 mg PRN PRN 08/25/16 20:45 08/26/16 08:49 DC Naloxone HCl (Narcan) 0.5 mg Q1H 08/25/16 21:00 08/26/16 13:46 DC 08/25/16 21:48 0.5 MG Lorazepam (Ativan) 1 mg Q15MIN PRN 08/25/16 21:15 08/30/16 16:04 DC 08/28/16 21:52 1 MG Hydromorphone HCl (Dilaudid) 0.5 mg Q1H PRN 08/26/16 00:45 08/28/16 11:10 DC 08/28/16 08:20 0.5 MG Hydralazine HCl (Apresoline) 20 mg Q4HR PRN 08/26/16 02:15 08/30/16 16:04 DC 08/29/16 00:54 20 MG Lorazepam (Ativan) 0.5 mg Q4H PRN 08/26/16 02:15 08/30/16 16:04 DC 08/30/16 13:39 0.5 MG Amlodipine Besylate (Norvasc) 5 mg DAILY 08/27/16 09:00 08/30/16 16:04 DC 08/30/16 09:10 5 MG Duloxetine HCl (Cymbalta) 30 mg HS 08/26/16 22:00 08/30/16 16:04 DC 08/29/16 21:32 30 MG Duloxetine HCl (Cymbalta) 60 mg DAILY 08/27/16 09:00 08/30/16 16:04 DC 08/30/16 09:09 60 MG Levetiracetam (Keppra) 500 mg BID 08/26/16 21:00 08/27/16 10:19 DC 08/27/16 08:31 500 MG Pantoprazole Sodium (Protonix) 40 mg ACB 08/27/16 06:30 08/30/16 16:04 DC 08/30/16 05:15 40 MG Polyethylene Glycol (Miralax) 17 g DAILY 08/27/16 09:00 08/28/16 11:05 DC 08/27/16 08:30 17 G Oxymetazoline HCl (Afrin Nasal [place]) 2 spray BID PRN 08/26/16 12:30 08/29/16 12:29 DC Levothyroxine Sodium (Synthroid) 50 mcg ACB 08/27/16 06:30 08/30/16 16:04 DC 08/30/16 05:15 50 MCG Oxycodone HCl (Roxicodone) 10 mg Q4H PRN 08/26/16 21:15 08/28/16 14:02 DC 08/28/16 11:19 10 MG Levetiracetam (Keppra) 500 mg BID 08/27/16 21:00 08/30/16 16:04 DC 08/30/16 09:11 500 MG Baclofen (LIORESAL 10 mg) 10 mg Q2-3H PRN 08/27/16 10:30 08/28/16 11:05 DC 08/28/16 08:09 10 MG Oxycodone HCl (Oxycontin) 10 mg BID 08/27/16 21:00 08/30/16 16:04 DC 08/30/16 09:11 10 MG Levetiracetam (KEPPRA 250 mg) 250 mg BID 08/27/16 21:00 08/30/16 16:04 DC 08/30/16 09:11 250 MG Calamine/Phenol (Calmoseptine) 1 applic QID PRN 08/27/16 11:15 08/30/16 16:04 DC 08/27/16 11:19 1 APPLIC Baclofen (LIORESAL 20 mg) 20 mg HS 08/27/16 22:00 08/30/16 16:04 DC 08/29/16 21:33 20 MG Lisinopril (Prinivil) 10 mg DAILY 08/28/16 09:00 08/28/16 12:50 DC 08/28/16 08:15 10 MG Baclofen (LIORESAL 10 mg) 10 mg Q3H PRN 08/28/16 11:15 08/30/16 16:04 DC 08/29/16 21:32 10 MG Polyethylene Glycol (Miralax) 17 g BID 08/28/16 21:00 08/30/16 16:04 DC 08/29/16 09:14 17 G Losartan Potassium (COZAAR 50 mg) 50 mg DAILY 08/29/16 09:00 08/30/16 16:04 DC 08/30/16 09:09 50 MG Oxycodone HCl (Roxicodone) 20 mg Q4H PRN 08/28/16 17:15 08/30/16 16:04 DC 08/30/16 05:15 20 MG Bethanechol Chloride (Urecholine 25 Mg) 25 mg ACHS 08/29/16 17:00 08/30/16 16:04 DC 08/30/16 11:29 25 MG Bethanechol Chloride (URECHOLINE 10 mg) 10 mg ACHS 08/29/16 17:00 08/30/16 16:04 DC 08/30/16 11:29 10 MG Quetiapine Fumarate (Seroquel) 150 mg HS 08/29/16 22:00 08/30/16 16:04 DC 08/29/16 22:00 150 MG Cephalexin HCl (Keflex) 500 mg TID 08/30/16 09:00 08/30/16 13:21 DC 08/30/16 09:09 500 MG Amoxicillin/ Clavulanate Potassium (Augmentin 875/ 125) 875 mg BIDWM 08/30/16 13:30 08/30/16 16:04 DC 08/30/16 13:53 875 MG Subjective Patient seen again today and states that she feels much more clear-headed. I spoke with patient's Ramu on 08/29/16 and he stated that he did not feel this was a suicide attempt, but rather a relapse due to her narcotic dependency. He feels that she has not been invested in treatment over the past year and that she continues to lack insight/motivation into her addiction. He does agree that her depression is not well-controlled despite this. He felt that PDH would be an acceptable option and that patient would be safe at home in the evenings. He is leaving home this weekend but patient's son is able to come stay with her. We discussed safety precautions such as continuing using time-release medication enterprise resource planner, but limiting medications that go into it, removing all old and OTC medications from the house. He states that there are no guns/weapons in the home. Patient agrees to attend PDH next week and denies any suicidal thoughts. She does feel that her depression could be better controlled and she will benefit from PDH. Start Time: 08:40 Stop Time: 09:00 Care >50% of this visit spent in counseling/coordination care. [facility] Exam Vitals Vital Signs Date Time Temp Pulse Resp B/P Pulse Ox O2 Delivery O2 Flow Rate FiO2 08/30/16 12:11 98.7 90 18 117/74 93 Room Air 08/28/16 19:28 1.00 Physical examination performed by the hospitalist. Height (Feet): 5 Height (Inches): 6.00 Mental Status Exam Muscle Strength/Tone: Normal Dressing: Casual Grooming: Fair Attitude: Cooperative Motor Activity: Normal Eye Contact: Good Speech: Normal Volume: Normal Rhythm: Appropriate Rhythm Sensory: Alert Orientation: Oriented X4 Mood: Depressed Affect: Restricted Rate of Thoughts: Appropriate Rate Thought Organization: Organized Associations: Intact Abstract Reasoning: Intact, able to abstract Computation: Intact Thought Content: Ruminations, Helplessness, Somatic Concerns Perception/Psychotic: Perception Normal Attention Span/Concentration: Normal Language: Naming Intact Fund of Knowledge: Janeen aware current events Memory: Grossly Intact Suicidal Ideation: Denies Homicidal Ideation: Denies Insight: Fair Judgment: Fair Impulse Control: Fair Assessment and Plan (1) Depression Qualifiers: (2) Acute encephalopathy Assessment: resolved (3) Opioid overdose (4) Narcotic dependence (5) Hypothyroidism (6) Seizure (7) HTN (hypertension) (8) HLD (hyperlipidemia) Anticipate discharge soon Patient denies current suicidality and agrees to attend PDH at [place] to better treat depressive symptoms. in agreement with plans. Safety precautions discussed in detail per HPI. Primary team plans to discharge today. REBEKA WILLIS MD Aug 30, 2016 20:29
--- NOTE | 2016-08-30 23:04 | PNPDOC ---
Progress Note Date 08/30/16 08/30/16 Prema expresses disappointment that she was not accepted to [facility]. She indicated that family members will be available intermittently over the weekend to help her at home and that she wishes to delay initiating care at [facility] until next week. She complains of dysuria and urinary frequency today and reports that she gets a urinary tract infection every time she has a catheter. She denied lightheadedness and reports her appetite is good. Examination reveals patient to be alert and cooperative with fluent speech. Respirations are nonlabored with good airflow. Abdomen is benign without suprapubic tenderness. Urinalysis confirmed UTI, culture has gram-negative rods on initial report. Antibiotic converted from cephalexin to Augmentin per patient request-dose to be given now. Stable for discharge at this time, home health being resumed with prior orders. Discussed with Dr. Jacobson. Dr. Jordan updated on hospitalization and medication changes. Medications reviewed with patient in detail including need to discontinue phentermine. When reviewing medications it was learned that Prema had not been taking Keppra prior to admission as previously believed, subsequently Keppra dose reduced to 500 mg bid at discharge as "new treatment" rather than increased dose. It was additionally learned that there is an insurance conflict with home health benefits and day hospital care at [facility] which may cause delay in initiating the later. Pt agrees to f/u with her therapist on Saturday at scheduled appt. Discharge home health/therapy plans reviewed with pt and her by case management-both agreeable. >30 min on pt care NAVID ISRAEL MD Aug 30, 2016 23:00
== END 2016-08-30 15:10 | disposition home health service (06) | DRG 72 ==
LOC: ED 17:29 → EDHOLD 19:26 → CCU 19:55 → MED 08-28 12:58
PROVIDERS: ADMIT Emergency Medicine; ATTEND Internal Medicine
DX: G93.41 Metabolic encephalopathy (principal); E87.6 Hypokalemia; E03.9 Hypothyroidism, unspecified; F32.9 Major depressive disorder, single episode, unspecified; I10 Essential (primary) hypertension; G89.29 Other chronic pain; M54.9 Dorsalgia, unspecified; N31.9 Neuromuscular dysfunction of bladder, unspecified; G40.909 Epilepsy, unspecified, not intractable, without status epilepticus; K21.9 Gastro-esophageal reflux disease without esophagitis; Z79.52 Long term (current) use of systemic steroids
CPT/HCPCS: 36415; 36600; 51701; 80048; 80053; 80306; 80307; 81001; 82803; 83605; 83735; 84484; 85025; 86140; 87077; 87086; 87186; 92950; 93005; 96361; 96374; 99406; 99407

== ENCOUNTER → 2016-09-10 | Outpatient (CLI) | payer BC, MEDICARE ==
[~2016-09-10] MED LIST changes: +AMOX-351 PO; +BETH10TA PO; +BETH25TA PO; +CALMOSEPTINE OINTMENT 3.5 G PACKET TOP ONE; +INDO50CA71 PO; +LEVE500T26 PO; -LEVE500T9 PO; +LOSA50TA52 PO; -PRED10TA PO; +QUET300T44 PO; -RIVA15TA PO; +SALINE FLUSH 10ml SYRINGE IVF ONE
== END ==
LOC: NWCC 13:23
PROVIDERS: ATTEND Internal Medicine
DX: L97.512 Non-pressure chronic ulcer of other part of right foot with fat layer exposed (principal); I87.2 Venous insufficiency (chronic) (peripheral); S90.822A Blister (nonthermal), left foot, initial encounter; R60.1 Generalized edema; R60.0 Localized edema
CPT/HCPCS: 11042; 11045; 99213; A6021; A6209; A6212

== ENCOUNTER → 2016-10-03 | Outpatient (CLI) | payer BC, MEDICARE ==
[~2016-10-03] MED LIST changes: -CALMOSEPTINE OINTMENT 3.5 G PACKET TOP ONE; -SALINE FLUSH 10ml SYRINGE IVF ONE
--- NOTE | 2016-10-03 11:31 | DI ---
Indication: ITS.REASON: B96.89; L97.422; M79.672 PAIN IN LEFT FOOT, left heel ulcer PROCEDURE: NM BONE SCAN, 3-PHASE: Encounter: Initial Comparison: None Technique: 24.5 mCi of Tc-99m MDP was administered intravenously. Plantar planar spot images of the feet were obtained in the arterial, blood pool and delayed phases. Lateral images were performed the blood pool and delayed phases. FINDINGS: There is arterial phase soft tissue uptake in the calcaneal region of the left foot. No arterial phase uptake noted in the right foot. There is continued soft tissue uptake in the posterior soft tissues of the left foot on the blood pool phase imaging. No definite areas of bony uptake appreciated however. No abnormal uptake seen on the right. Delayed phase imaging shows uptake within the calcaneus on the left. Mild probable degenerative uptake seen in the right mid and hind foot. Impression: No definite evidence of osteomyelitis. There is soft tissue uptake surrounding the left heel consistent with infection/cellulitis. .
== END ==
LOC: IMA 06:56
PROVIDERS: ATTEND Internal Medicine
DX: B96.89 Other specified bacterial agents as the cause of diseases classified elsewhere (principal); L97.422 Non-pressure chronic ulcer of left heel and midfoot with fat layer exposed; R94.8 Abnormal results of function studies of other organs and systems; M79.672 Pain in left foot
CPT/HCPCS: 78315; A9503